=== PATIENT | male | born 1970 | race Caucasian/White ===

== ENCOUNTER 2020-06-22 10:19 | Inpatient (IN) | payer OTHER, SELFPAY ==
--- NOTE | ~2020-06-22 | US_ITS ---
EXAMINATION: US venous doppler LE RT EXAM DATE: 06/22/2020 11:50 INDICATION: Right leg pain, swelling, redness. TECHNIQUE: Multiple grayscale, color flow and Doppler images of the right lower extremity deep venous system were obtained and reviewed. Comparison is made to prior examination from 06/29/2018. FINDINGS: The right common femoral, femoral and profunda veins demonstrate normal color flow, respira tory variation, augmentation and compressibility. Compressibility, color flow confirmed within the r ight popliteal, posterior tibial, peroneal, and greater saphenous veins. IMPRESSION: 1. No right lower extremity deep venous thrombosis. Reviewed, dictated and finalized at location B.
--- NOTE | ~2020-06-22 | XR_ITS ---
EXAMINATION: XR knee RT min 4V DATE: 06/22/2020 10:59 INDICATION: Right knee pain and swelling TECHNIQUE: Four views of the right knee were obtained. COMPARISON: None. FINDINGS: There are changes of medial compartment arthroplasty. No fracture is identified. There is a small joint effusion. Moderate infrapatellar soft tissue swelling is identified. 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 IMPRESSION: 1. Infrapatellar soft tissue swelling and small joint effusion without acute osseous abnormality. Reviewed, dictated and finalized at location A. IMPRESSION: 1. Infrapatellar soft tissue swelling and small joint effusion without acute os seous abnormality.
[2020-06-22 10:22] VITALS: BP 149/83; PULSE 70; RESP 16; TEMP 36.7; O2SAT 99
[2020-06-22 11:01] LABS: Basophils Percent Auto 0.7 % (0.2-1.2); Eosinophils Absolute Auto 0.2 K/mm3 (0-0.3); Eosinophils Percent Auto 3.6 % (0-4.4); Hematocrit 38.9 % (42.0-52.0); Hemoglobin 13.7 g/dL (14.0-18.0); Immature Granulocyte Absolute 0.02 K/mm3 (0.00-0.031); Immature Granulocyte Percent A 0.4 % (0-0.5); Lymphocytes Absolute Auto 1.05 K/mm3 (0.9-3.2); Lymphocytes Percent Auto 19.1 % (18.3-44.2); Mean Corpuscular HGB Conc 35.2 g/dl (32-36); Mean Corpuscular Hemoglobin 33.1 pg (26-34); Monocytes Absolute Auto 0.5 K/mm3 (0.1-0.6); Monocytes Percent Auto 9.1 % (2.6-8.5); Neutrophils Absolute Auto 3.7 K/mm3 (1.3-6.7); Neutrophils Percent Auto 67.1 % (45.5-73.1); Platelet Count Result 238 k/mm3 (150-375); Red Blood Count 4.14 M/mm3 (4.6-6.20); Red Cell Distribution Width 12.4 % (11.5-14.5); White Blood Count 5.5 K/mm3 (4.5-10.0)
[2020-06-22 11:16] LABS: Lactic Acid Reflex 1.1 mmol/L (0.7-2.1)
[2020-06-22 11:22] LABS: Anion Gap 9 mmol/L (8-16); Blood Urea Nitrogen 13 mg/dL (9-20); CRP 6.1 mg/dL (<1.0); Calcium 9.3 mg/dL (8.4-10.2); Carbon Dioxide 23 mmol/L (22-30); Chloride 106 mmol/L (98-107); Estimated CRCL calculation 90 ml/min; Estimated Glomerular Filt Rate > 60; Glucose 114 mg/dL (75-110); Potassium 4.2 mmol/L (3.4-5.0); Sodium 138 mmol/L (137-145); Uric Acid 5.2 mg/dL (3.5-8.5)
--- NOTE | 2020-06-22 11:32 | ED.EXTPRO ---
HPI - Extremity Problem General Chief complaint: Extremity Problem,Nontraumatic Stated complaint: red, swollen rt knee Time Seen by Provider: 06/22/20 10:29 Source: patient Mode of arrival: ambulatory Limitations: no limitations History of Present Illness HPI Narrative: This is a 49 year old male that presents to the ER for swollen right knee x 4 days. Also reports redness. Reports he was seen at an outside facility on Friday and started on clindamycin with little relief. He had a knee replacement by Dr. Multani on this knee 2 years ago. Denies fever or pain. Related Data Home Medications Medication Instructions Recorded Confirmed amlodipine 06/22/20 atorvastatin 06/22/20 clindamycin HCl 06/22/20 06/22/20 Allergies Allergy/AdvReac Type Severity Reaction Status Date / Time amoxicillin Allergy Intermediate Other Verified 06/22/20 10:32 Review of Systems Review of Systems: Narrative: CONSTITUTIONAL: Denies fever SKIN: Reports erythema MUSCULOSKELETAL: Denies joint pain, or myalgia. NEUROLOGIC: Denies numbness All systems reviewed & are unremarkable except as noted in HPI and below PMFSH Past Medical History Medical History (Updated 06/22/20 @ 12:40 by Brenda Graves PA-C) History of hyperlipidemia History of hypertension Social History Social History Gender identity (if verbalized by the patient): Male Exam Narrative: Exam Narrative: GENERAL: Well-appearing, well-nourished, and in no acute distress. HEAD: Normocephalic, atraumatic. EYES: EOMI. CHEST: Clear to auscultation. No respiratory distress. No wheezes rales or rhonchi HEART: Regular rate and rhythm. No murmur heard. Normal peripheral pulses. EXTREMITIES: Normal range of motion. Right knee with mild-moderate edema of the infrapatellar bursa with overlying redness that extends down into the lower leg. Normal DP pulses, normal sensation SKIN: Warm, dry, no rash. NEURO: No focal deficits. Alert and oriented x3. PSYCH: Normal mood and affect Course Consultations Consultation #1: Spoke with Dr. Multani about patient work-up. Would like him started on Ancef and vanc and to stay in the hospital for further observation and treatment. Would like a consult put in for Dr. Perez. Date: 06/22/20 Time: 12:40 Vital Signs Vital signs: Vital Signs Temperature 98.0 F 06/22/20 10:22 Pulse Rate 70 06/22/20 10:22 Respiratory Rate 16 06/22/20 10:22 Blood Pressure 149/83 H 06/22/20 10:22 Pulse Oximetry 99 06/22/20 10:22 Temperature 98.0 F 06/22/20 10:22 Pulse Rate 70 06/22/20 10:22 Respiratory Rate 16 06/22/20 10:22 Blood Pressure 149/83 H 06/22/20 10:22 Pulse Oximetry 99 06/22/20 10:22 MDM - Extremity (Nontraumatic) MDM Narrative Medical decision making narrative: Patient presents to the emergency department for redness and swelling of the right knee. Had this knee replaced [address] Multani. Was seen at an outside hospital 4 days ago and started on clindamycin without relief. Patient is afebrile and nontoxic-appearing. He has normal range of motion in the knee and little pain. I do not suspect a septic joint. His infrapatellar bursa is inflamed and red. CBC is without leukocytosis. Inflammatory markers are elevated. Lactic acid is normal. Blood cultures were sent. Right knee x-ray shows infrapatellar soft tissue swelling and a small joint effusion, no osseous abnormality. Right lower extremity venous Dopplers without evidence of DVT. Spoke with Dr. Multani about patient work-up. Would like him started on Ancef and vanc and to stay in the hospital for further observation and treatment. Would like a consult put in for Dr. Perez. Patient given first dose of antibiotics in the ED and admitted in stable condition Lab Data Attestation: I reviewed the patient's lab results. Result diagrams: 06/22/20 10:54 06/22/20 10:54 Labs: Lab Results 06/22/20 06/22/20 06/22/20 Range/Units
[2020-06-22 11:33] LABS: Erythrocyte Sedimentation Rate 64 mm/hr (0-20)
[2020-06-22 13:10] VITALS: BP 139/88; PULSE 74; RESP 16; O2SAT 98
--- NOTE | 2020-06-22 13:24 | PM.IMHP ---
H&P: HPI History of Present Illness Date/Time: 06/22/20 13:24 Chief complaint: septic bursitis Narrative: Ricki Tang is a 49 year old male who for five days has had swelling and redness the anterior inferior portion of his right knee without any antecedent injury. In [facility] only he was put on clindamycin five days ago however his symptoms do not improve. He contacted my office I had him come to [facility] for further evaluation and management of this problem. He was seen in the emergency room. He has a septic prepatellar bursitis. Review of Systems Constitutional: Constitutional: Reports no additional constitutional complaints, Denies excessive sweating and Denies fatigue Eyes: Eyes: Reports no additional eye complaints ENT: Reports system reviewed and no additional complaints, except as documented Cardiovascular: Cardiovascular: Denies chest pain at rest and Denies dyspnea Respiratory: Respiratory: Reports no additional respiratory complaints and Denies dyspnea Gastrointestinal: Gastrointestinal: Reports no additional gastrointestinal complaints Musculoskeletal: Musculoskeletal: Reports as per HPI Integumentary/Breasts: Skin/Breast: Reports system reviewed and no additional complaints, except as docu Neurologic: Reports as per HPI Endocrine: Endocrine: Denies excessive sweating and Denies fatigue Hematologic/Lymphatic: Hematologic/Lymphatic: Denies easy bleeding and Denies easy bruising PMFSH Past Medical History Medical History History of hyperlipidemia History of hypertension Surgical History Surgical History (Updated 06/22/20 @ 13:26 by Glen Multani MD) Status post unicompartmental knee replacement left side 2015, right side 2017 Social History Social History Gender identity (if verbalized by the patient): Male Meds Home Medications and Allergies Home Medications Medication Instructions Recorded Confirmed Type amlodipine 06/22/20 History atorvastatin 06/22/20 History clindamycin HCl 06/22/20 06/22/20 History Allergies Allergy/AdvReac Type Severity Reaction Status Date / Time amoxicillin Allergy Intermediate Other Verified 06/22/20 10:32 Vital Signs Vital Signs - 24 hr 06/22/20 10:22 06/22/20 13:10 Temperature 98.0 F Pulse Rate 70 74 Respiratory Rate 16 16 Blood Pressure 149/83 H 139/88 Pulse Oximetry 99 98 Exam Const: General: alert and awake; No acute distress Nutritional Appearance: average body habitus Orientation/consciousness: patient oriented x3 Limitations: other limitations HENMT: Head: normal to inspection Ears: hearing grossly normal bilaterally Face and sinus: normal facial exam Mouth: Yes moist mucous membranes Teeth and gingiva: fair dentition Eyes: General: appearance normal, both eyes and all related structures Neck: Neck: normal visual inspection and nontender Chest: Chest palpation & inspection: deferred Resp: Effort & Inspection: normal respiratory effort and able to speak in complete sentences Cardio: Rate: regular rate Rhythm: regular rhythm Peripheral pulses: Peripheral pulses 2+ throughout ( both lower extremities) GI: Inspection: non-distended Rectal Exam: deferred Skin: General skin exam: erythema ( in the right prepatellar area ), induration ( in the right prepatellar area ), no petechiae and no purpura Trauma: no abrasions, no lacerations and no punctures noted Wounds: no wounds noted Hair: other ( reasonable growth lower extremities) Neuro: General: patient oriented x3 and moves all extremities Cognition (Neuro): normal cognition Speech: normal speech Gait exam (Neuro): Other gait observations present Motor exam (neuro): Other motor observations present ( intact motor function both lower extremities) Sensory Exam: normal sensation Extrem: General: normal to inspection and other Other:
--- NOTE | 2020-06-22 13:30 | ADMGEN ---
This patient, Ricki Tang, was admitted to Medical Room 349-01. Patient/family oriented to hospital policies and general routines including ID bracelet, bed and alarms, visiting hours, pain management, procedures, bathroom and other care routines, personal items, smoking policy, room service/diet, and visiting hours. Valuables list has been completed. Information on how to activate the Rapid Response Team has been discussed. Patient/Family are encouraged to report perceived risks to care and to ask questions if they do not understand what they are told or what they should do.
[2020-06-22 13:31] VITALS: BMI 29.7
[2020-06-22 13:56] VITALS: BP 145/94; PULSE 57; RESP 16; TEMP 36.4; O2SAT 100
--- NOTE | 2020-06-22 14:18 | P.PNINF_ITS ---
Progress Note: A&P Assessment and Plan (1) Infrapatellar bursitis of right knee: Code(s): M70.51 - Other bursitis of knee, right knee Status: Acute Assessment and Plan: r knee bursitis, with underlying TKA REC Ancef and Vanc, if no surgery nor + cultures, then Doxycycline and Cephalexin would be ideal oral f/u. PCN --> hypotension Subjective Date/time seen: 06/22/20 14:18 Objective Data Vital Signs Vital Signs: Vital Signs - 24 hr 06/22/20 10:22 06/22/20 13:10 06/22/20 13:56 Temperature 36.7 C 36.4 C L Pulse Rate 70 74 57 L Respiratory Rate 16 16 16 Blood Pressure 149/83 H 139/88 145/94 H Pulse Oximetry 99 98 100 Intake/Output Intake/Output: Intake & Output 06/19/20 06/20/20 06/21/20 06/22/20 23:59 23:59 23:59 23:59 Intake Total 50 Balance 50 Meds/Results Medications: Active Medications Generic Name Dose Route Start Last Admin Trade Name Freq PRN Reason Stop Dose Admin Aspirin 325 mg 06/23/20 09:00 Aspirin Ec PO QAM ARISTEO Cefazolin Sodium 1 gm in 50 mls @ 100 mls/hr 06/22/20 22:00 Ancef 1 Gm/D5w 50 Ml Pm IVPB Q8H ARISTEO Vancomycin HCl 1,250 mg in 250 mls @ 200 mls/hr 06/23/20 03:00 Vancomycin 1,250 Mg/D5w 250 Ml IVPB Q12H ARISTEO Vancomycin HCl 1,250 mg in 250 mls @ 200 mls/hr 06/22/20 14:00 Vancomycin 1,250 Mg/D5w 250 Ml IVPB 06/22/20 15:14 ONCE ONE Radiology Results: ITS Impressions Knee X-Ray 06/22/20 11:12 IMPRESSION: 1. Infrapatellar soft tissue swelling and small joint effusion without acute osseous abnormality. Venous Doppler Study 06/22/20 11:54 IMPRESSION: 1. No right lower extremity deep venous thrombosis. Labs Labs: Laboratory Results - last 24 hr 06/22/20 06/22/20 06/22/20 10:54 10:54 10:54 WBC 5.5 RBC 4.14 L Hgb 13.7 L Hct 38.9 L MCV 94.0 MCH 33.1 MCHC 35.2 RDW 12.4 Plt Count 238 MPV 9.0 Immature Gran % (Auto) 0.4 Neut % (Auto) 67.1 Lymph % (Auto) 19.1 [place] % (Auto) 9.1 H Eos % (Auto) 3.6 Baso % (Auto) 0.7 Lymph # (Auto) 1.05 [place] # (Auto) 0.5 Eos # (Auto) 0.2 Baso # (Auto) 0.0 Abs Immat Gran (auto) 0.02 Absolute Neuts (auto) 3.7 Absolute Nucleated RBC 0.0 Nucleated RBC % 0.0 ESR 64 H Sodium 138 Potassium 4.2 Chloride 106 Carbon Dioxide 23 Anion Gap 9 BUN 13 Creatinine 0.90 Estim Creat Clear Calc 90 Estimated GFR > 60 Glucose 114 H Lactic Acid 1.1 Uric Acid 5.2 Calcium 9.3 C-Reactive Protein 6.1 H
--- NOTE | 2020-06-22 18:14 | CONS_ITS ---
DATE OF CONSULTATION: 06/22/2020 REASON FOR CONSULTATION: Bursitis, right knee. HISTORY OF PRESENT ILLNESS: The patient is a 49-year-old male who underwent right total knee arthroplasty, unicompartmental in 2018 with the same procedure opposite left side in 2016. He was in his usual state of health until 4 days before admission when he awoke with pain and redness in the anterior aspect of the right knee below the patella. He went to emergency room in [place] where clindamycin was given. X-rays were done. He has had no aspirations of the knee at any point. He continued to have ongoing symptoms, however, and was seen in the office today and admitted. He has been started on Ancef and vancomycin and consultation requested. One day before onset of symptoms, he was underneath the house looking for water leaks, wearing long pants and without any known skin trauma. He has had no arthralgias elsewhere. No previous such episodes, and the surgery in 2018 went well from the patient's standpoint. The patient denies fever, chills, sweats, and no other recent antibiotics. HABITS: Ex-smoker. No alcohol to excess. ALLERGIES: AMOXICILLIN CAUSED BURNING IN HIS LOWER EXTREMITIES FOLLOWED BY HYPOTENSION AND THIS OCCURRED IN THE RECENT PAST. PRESENT MEDICATIONS: As above. PAST MEDICAL HISTORY: Hypertension and hyperlipidemia. SOCIAL HISTORY: He is not . 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 He knows of no skin trauma at work other than welding burn injuries, none of which have been infected. He does have a friend or pruner at home who can help with antibiotics if needed. REVIEW OF SYSTEMS: Constitutional, musculoskeletal, skin, respiratory, GI otherwise negative. FAMILY HISTORY: Not pertinent to his present illness. PHYSICAL EXAMINATION: GENERAL: Middle-aged male, appears his actual age, in no acute distress, afebrile. VITAL SIGNS: 145/94, 57, 16, 100%. SKIN: Warm and dry. No generalized rashes. EENT: Conjunctivae normal. Pupils equal, round, and reactive to light. The oropharynx, oral mucosa normal. LUNGS: Clear to auscultation and percussion. CARDIAC: Regular rate and rhythm. No murmurs or gallops. ABDOMEN: Nondistended, nontender. EXTREMITIES: No clubbing, cyanosis, or edema. Dorsalis pedis, radial pulses 2+ and equal. MUSCULOSKELETAL: Mild erythema and edema over the anterior aspect of the right patella tendon. He has excellent range of motion of the knee. There is no joint effusion. Surgical scars are very well healed. LABORATORY DATA: Blood cultures had just been drawn. His white count 5.5, hemoglobin 13.7, platelets are 238. His glucose 114, CRP 6.1, otherwise chemistry panel entirely normal. RADIOLOGY: Knee x-ray, soft tissue swelling and small joint effusion. ASSESSMENT: 1. Bursitis of the right knee, not responsive to clindamycin, without sepsis. Underlying unicompartmental joint replacement that is 2 years old. Cutaneous jojo are suspected, rather than hematogenous spread from a distant source. 2. Past tobacco. 3. Past knee surgery, opposite side also. RECOMMENDATIONS: 1. Ancef and vancomycin appropriate day 1. 2. If blood cultures no growth and he improves clinically, doxycycline and cephalexin would be optimal oral antibiotics for followup. Thank you very much for asking me to see him. AMY EDWARDS M.D. WAITER WAITER D Precious MT: Lorenzo
[2020-06-22 20:35] VITALS: BP 148/68; PULSE 57; RESP 17; TEMP 36.2; O2SAT 98
[2020-06-23 05:08] VITALS: BP 116/67; PULSE 78; RESP 12; TEMP 36.1; O2SAT 97
[2020-06-23] MEDS: ASPIRIN 325 MG ENTERIC TABLET PO (11:10)
--- NOTE | 2020-06-23 11:33 | PM.PNORT ---
Progress Note: A&P Assessment and Plan (1) Infrapatellar bursitis of right knee: Code(s): M70.51 - Other bursitis of knee, right knee Status: Acute (2) Status post unicompartmental knee replacement: Code(s): Z96.659 - Presence of unspecified artificial knee joint Status: Chronic Assessment and Plan: 49-year-old male with septic right prepatellar bursitis. This is current a resolving on the IV antibiotics. First they have blood cultures are negative. For doctors Pamela note if these remain negative then he will be discharged home this weekend on oral antibiotics. I appreciate his input. Subjective Subjective Date/Time Seen: 06/23/20 11:33 Principal diagnosis: right knee septic prepatellar bursitis Interval history: 49-year-old male who was admitted for treatment of septic right prepatellar bursitis. Dr. Garcias has been consulted and is seen him as well. Patient himself reports no issues. Very little discomfort in his right knee prepatellar area. No other complaints. Review of Systems Constitutional: Constitutional: Denies chills and Denies fever(s) Eyes: Eyes: Reports no additional eye complaints ENT: Reports system reviewed and no additional complaints, except as documented Cardiovascular: Cardiovascular: Denies chest pain and Denies dyspnea on exertion Respiratory: Respiratory: Reports no additional respiratory complaints and Denies dyspnea on exertion Gastrointestinal: Gastrointestinal: Denies abdominal pain and Denies bloating Exam Const: General: cooperative, no acute distress and alert Nutritional Appearance: other Orientation/consciousness: patient oriented x3 Limitations: no limitations HENMT: Head: normal to inspection Ears: hearing grossly normal bilaterally Face and sinus: face symmetric Mouth: Yes moist mucous membranes Teeth and gingiva: fair dentition Eyes: Alignment and Position: alignment normal and position normal Sclera: sclerae normal Neck: Neck: normal visual inspection and nontender Chest: Chest palpation & inspection: normal inspection of the chest Resp: Effort & Inspection: normal respiratory effort and able to speak in complete sentences GI: Inspection: other ( Nontender, nondistended) Skin: General skin exam: normal color Rashes: no rashes Neuro: General: patient oriented x3 Cognition (Neuro): normal cognition Speech: normal speech Motor exam (neuro): 5/5 motor strength present throughout Sensory Exam: normal sensation Extrem: General: normal to inspection and other Other: Exam of the right knee shows no irritability with active or passive motion. He has got a little bit swelling still over the patellar tendon. Erythema has diminished considerably and now is mainly just over the patellar tendon measuring about 3 cm across. Exam otherwise unremarkable. Calves negative. Psych: Appearance: grossly normal Mental Status: mental status grossly normal Objective Data Vital Signs Vital Signs: Vital Signs - 24 hr 06/22/20 13:10 06/22/20 13:56 06/22/20 20:35 Temperature 97.5 F L 97.2 F L Pulse Rate 74 57 L 57 L Respiratory Rate 16 16 17 Blood Pressure 139/88 145/94 H 148/68 H Pulse Oximetry 98 100 98 06/23/20 05:08 Temperature 97 F L Pulse Rate 78 Respiratory Rate 12 Blood Pressure 116/67 Pulse Oximetry 97 Intake/Output Intake/Output: Intake & Output 06/20/20 06/21/20 06/22/20 06/23/20 23:59 23:59 23:59 23:59 Intake Total 1690 / 1690 990 / 990 Output Total 1540 / 1540 1100 / 1100 Balance 150 / 150 -110 / -110 Meds/Results Medications: Active Medications Generic Name Dose Route Start Last Admin Trade Name Freq PRN Reason Stop Dose Admin Aspirin 325 mg 06/23/20 09:00 06/23/20 11:10 Aspirin Ec PO 325 mg QAM ARISTEO Administration Cefazolin Sodium 1 gm in 50 mls @ 100 mls/hr 06/22/20 22:00 06/23/20 05:45 Ancef 1 Gm/D5w 50 Ml Pm IVPB Infused Q8H ARISTEO Infusion Vancomycin HCl 1,250
[2020-06-23 14:00] VITALS: BP 139/80; PULSE 53; RESP 14; TEMP 36.7; O2SAT 99
[2020-06-23 21:26] VITALS: BP 140/80; PULSE 80; RESP 16; TEMP 37.1; O2SAT 98
[2020-06-24 03:00] LABS: Vancomycin Trough 10.8 ug/mL (10.0-20.0)
[2020-06-24 06:00] VITALS: BP 126/72; PULSE 60; RESP 16; TEMP 36; O2SAT 97
[2020-06-24 08:00] VITALS: PULSE 54; RESP 18; O2SAT 99
[2020-06-24] MEDS: ASPIRIN 325 MG ENTERIC TABLET PO (10:11)
[2020-06-24 14:00] VITALS: BP 144/76; PULSE 54; RESP 18; TEMP 36.7; O2SAT 99
--- NOTE | 2020-06-24 14:40 | PM.PNORT ---
Progress Note: A&P Assessment and Plan (1) Status post unicompartmental knee replacement: Code(s): Z96.659 - Presence of unspecified artificial knee joint Status: Chronic (2) Infrapatellar bursitis of right knee: Code(s): M70.51 - Other bursitis of knee, right knee Status: Acute Assessment and Plan: 49-year-old male hospital day two for IV antibiotics for septic right prepatellar bursitis. He has improved dramatically. Waiting three day blood cultures so that we can get him home on the appropriate antibiotics. Hopefully he is able to go home tomorrow. Subjective Subjective Date/Time Seen: 06/24/20 14:40 Principal diagnosis: right knee prepatellar bursitis Interval history: hospital day two for 49-year-old male with right knee prepatellar bursitis . Currently getting Ancef and vancomycin IV. He reports no pain in his right knee. Review of Systems Constitutional: Constitutional: Denies chills and Denies fever(s) Eyes: Eyes: Reports no additional eye complaints ENT: Reports system reviewed and no additional complaints, except as documented Cardiovascular: Cardiovascular: Denies chest pain and Denies dyspnea on exertion Respiratory: Respiratory: Reports no additional respiratory complaints and Denies dyspnea on exertion Gastrointestinal: Gastrointestinal: Denies abdominal pain and Denies bloating Exam Const: General: cooperative, no acute distress and alert Nutritional Appearance: other Orientation/consciousness: patient oriented x3 Limitations: no limitations HENMT: Head: normal to inspection Ears: hearing grossly normal bilaterally Face and sinus: face symmetric Mouth: Yes moist mucous membranes Teeth and gingiva: fair dentition Eyes: Alignment and Position: alignment normal and position normal Sclera: sclerae normal Neck: Neck: normal visual inspection and nontender Chest: Chest palpation & inspection: normal inspection of the chest Resp: Effort & Inspection: normal respiratory effort and able to speak in complete sentences Extrem: General: normal to inspection and other Other: Exam of Right knee shows full range of motion with excellent strength. The erythema but the anterior portion of the right knee has resolved. A little bit of fullness in the right knee prepatellar bursitis over the tendon but no pain. Neurovascular status right lower extremity unremarkable. Psych: Appearance: grossly normal Mental Status: mental status grossly normal Objective Data Vital Signs Vital Signs: Vital Signs - 24 hr 06/23/20 21:26 06/24/20 06:00 Temperature 98.8 F 96.8 F L Pulse Rate 80 60 Respiratory Rate 16 16 Blood Pressure 140/80 126/72 Pulse Oximetry 98 97 Intake/Output Intake/Output: Intake & Output 06/21/20 06/22/20 06/23/20 06/24/20 23:59 23:59 23:59 23:59 Intake Total 1690 / 1690 3314 / 3314 1290 / 1290 Output Total 1540 / 1540 4775 / 4775 Balance 150 / 150 -1461 / -1461 1290 / 1290 Meds/Results Medications: Active Medications Generic Name Dose Route Start Last Admin Trade Name Freq PRN Reason Stop Dose Admin Aspirin 325 mg 06/23/20 09:00 06/24/20 10:11 Aspirin Ec PO 325 mg QAM ARISTEO Administration Cefazolin Sodium 1 gm in 50 mls @ 100 mls/hr 06/22/20 22:00 06/24/20 06:45 Ancef 1 Gm/D5w 50 Ml Pm IVPB Infused Q8H ARISTEO Infusion Vancomycin HCl 1,250 mg in 250 mls @ 200 mls/hr 06/23/20 03:00 06/24/20 04:49 Vancomycin 1,250 Mg/D5w 250 Ml IVPB Infused Q12H ARISTEO Infusion Radiology Results: ITS Impressions Knee X-Ray 06/22/20 11:12 IMPRESSION: 1. Infrapatellar soft tissue swelling and small joint effusion without acute osseous abnormality. Venous Doppler Study 06/22/20 11:54 IMPRESSION: 1. No right lower extremity deep venous thrombosis. Labs Labs: Laboratory Results - last 24 hr 06/24/20 02:09 Vancomycin Trough 10.8 Imaging Attestation: I personally reviewed and interpret
[2020-06-24 22:00] VITALS: BP 135/77; PULSE 60; RESP 16; TEMP 36.7; O2SAT 100
[2020-06-25 06:00] VITALS: BP 116/73; PULSE 60; RESP 16; TEMP 36.3; O2SAT 100
[2020-06-25 08:00] VITALS: PULSE 60; RESP 16; O2SAT 100
[2020-06-25] MEDS: ASPIRIN 325 MG ENTERIC TABLET PO (08:35)
--- NOTE | 2020-06-25 09:40 | PM.PNORT ---
Progress Note: A&P Assessment and Plan (1) Infrapatellar bursitis of right knee: Code(s): M70.51 - Other bursitis of knee, right knee Status: Acute Assessment and Plan: This 5-year-old male with resolving right prepatellar septic bursitis. His initial blood cultures were negative and from a clinical standpoint he has been essentially symptom-free history was the IV antibiotics were started. I spoke with Dr. kashif glass to get the outpatient oral antibiotic information. He will be getting Keflex 500 mg q.i.d. x1 week and doxycycline 100 mg b.i.d. x1 week. I asked him to call my office in a week to let me know how he is doing. It is fine for him to return to work. Is also fine for him to be able to drive himself home. Time Spent With Patient Time with patient: 15 - 25 minutes Subjective Subjective Date/Time Seen: 06/25/20 09:40 Principal diagnosis: Right knee septic prepatellar bursitis Interval history: 49-year-old male hospital day three for IV antibiotics for a septic right prepatellar bursitis. He remains symptom free. Review of Systems Constitutional: Constitutional: Denies chills and Denies fever(s) Eyes: Eyes: Reports no additional eye complaints ENT: Reports system reviewed and no additional complaints, except as documented Cardiovascular: Cardiovascular: Denies chest pain and Denies dyspnea on exertion Respiratory: Respiratory: Reports no additional respiratory complaints and Denies dyspnea on exertion Gastrointestinal: Gastrointestinal: Denies abdominal pain and Denies bloating Exam Const: General: cooperative, no acute distress and alert Nutritional Appearance: other Orientation/consciousness: patient oriented x3 Limitations: no limitations HENMT: Head: normal to inspection Ears: hearing grossly normal bilaterally Face and sinus: face symmetric Mouth: Yes moist mucous membranes Teeth and gingiva: fair dentition Eyes: Alignment and Position: alignment normal and position normal Sclera: sclerae normal Neck: Neck: normal visual inspection and nontender Chest: Chest palpation & inspection: normal inspection of the chest Resp: Effort & Inspection: normal respiratory effort and able to speak in complete sentences GI: Inspection: other ( Nondistended) Skin: General skin exam: normal color Rashes: no rashes Neuro: General: patient oriented x3 Cognition (Neuro): normal cognition Speech: normal speech Gait exam (Neuro): Other gait observations present Motor exam (neuro): 5/5 motor strength present throughout Sensory Exam: normal sensation Extrem: General: normal to inspection and other Other: Exam of the right knee shows full range of motion. There is still some thickening of the prepatellar bursal area however the erythema has completely resolved in the anterior portion of his right knee. There is no irritability on exam. Neurovascular status right lower extremity intact. Left knee exam unremarkable. Psych: Appearance: grossly normal Mental Status: mental status grossly normal Objective Data Vital Signs Vital Signs: Vital Signs - 24 hr 06/24/20 14:00 06/24/20 22:00 06/25/20 06:00 Temperature 98.0 F 98.1 F 97.3 F L Pulse Rate 54 L 60 60 Respiratory Rate 18 16 16 Blood Pressure 144/76 H 135/77 116/73 Pulse Oximetry 99 100 100 Intake/Output Intake/Output: Intake & Output 06/22/20 06/23/20 06/24/20 06/25/20 23:59 23:59 23:59 23:59 Intake Total 1690 / 1690 3534 / 3534 2680 / 2680 1380 / 1380 Output Total 1540 / 1540 4775 / 4775 2875 / 2875 900 / 900 Balance 150 / 150 -1241 / -1241 -195 / -195 480 / 480 Meds/Results Medications: Active Medications Generic Name Dose Route Start Last Admin Trade Name Freq PRN Reason Stop Dose Admin Aspirin 325 mg 06/23/20 09:00 06/25/20 08:35 Aspirin Ec PO 325 mg QAM ARISTEO Administration Cefazolin Sodium 1 gm in 50 mls @ 100 mls/hr 06/22/20 22:00 06/25/20 07:00 Ancef 1 Gm/D5w 50 Ml Pm IVPB Infused Q8
--- NOTE | 2020-06-25 09:51 | PM.DS ---
DS: Admitting Diagnosis Admitting Diagnosis Admitting Diagnosis: septic bursitis Right prepatellar region DS: Discharge Diagnosis Discharge Diagnosis (1) Septic prepatellar bursitis of right knee: Code(s): M71.161 - Other infective bursitis, right knee Status: Acute Assessment and Plan: 49-year-old male with resolving right knee septic prepatellar bursitis. He is going to go home on oral Keflex and doxycycline for one week. He will follow up with me by telephone in a week or sooner if the need arises. DS: Summary Time Spent with Patient Time attestation: Total time spent providing and/or coordinating discharge services: DS: Data Data Completed and Pending Labs on day of discharge: Preliminary micro results at discharge 06/22/20 10:54 Blood Culture - Preliminary Blood 06/22/20 10:54 Blood Culture - Preliminary Blood Discharge Plan Discharge Attending physician on discharge: Glen Multani Consulting providers: Wilberto Perez ; Brenda Graves Discharging Clinician: Glen Multani Anticipated Discharge Date/Time: 06/25/20 09:44 Patient Disposition: Home, Self-Care Activity: march shower Diet: as tolerated Wound Care Instructions: other - see discharge instructions Discharge Instructions: Please call [facility] at one week after discharge to let me know how you are doing. Also, call the office with any orthopedic/surgical related questions prior to follow-up. Be sure to take all of the antibiotics as prescribed. Okay to eat a Citizen [place] yogurt daily well on the oral antibiotics to minimize bowel issues. Okay to return to work Friday. Patient Instructions: Antibiotic Form, Cefazolin (By injection), Vancomycin (By injection), Knee Bursitis (GEN), Pain Management (DC) Stand Alone Forms: General Discharge Information Follow-up/Referrals: Glen Multani MD [Physician] - ( call office in one week to let me know progress) Discharge Medications: New cephalexin [Keflex] 500 mg capsule 500 mg PO Q6H 7 Days Qty: 28 RF: 0 doxycycline hyclate 100 mg capsule 100 mg PO BID Qty: 14 RF: 0 Continued amlodipine 10 mg tablet 10 mg DAILY RF: 0 levothyroxine 150 mcg Tablet 150 mcg PO DAILY RF: 0 Discontinued clindamycin HCl 300 mg capsule 300 mg PO TID RF: 0 No Action atorvastatin 20 mg tablet 20 mg DAILY RF: 0 Date of admission: 06/22/20 12:26 Primary Care Provider: PHYSICIAN NOT ON STAFF,NONSTAFF Admitting Provider: Glen Multani Attending physician on admission: Glen Multani Condition: Stable Quality VTE Prophylaxis VTE prophylaxis: mechanical ordered and pharmacologic ordered
== END 2020-06-25 11:30 | disposition home or self-care (01) | DRG 558 ==
LOC: ANHED 12:40 → ANH3MED 12:54
PROVIDERS: Physician Assistant; Admitting Provider Orthopaedic Surgery; Emergency Provider Emergency Medicine; Visit Provider Orthopaedic Surgery
DX: M71.161 Other infective bursitis, right knee (principal); E78.5 Hyperlipidemia, unspecified; I10 Essential (primary) hypertension; Z96.653 Presence of artificial knee joint, bilateral; Z87.891 Personal history of nicotine dependence
CPT/HCPCS: 36415; 73564; 80048; 80202; 83605; 84550; 85025; 85652; 86140; 87040; 93971; 99285; A9270; J0690; J3370

== ENCOUNTER → 2020-12-23 09:06 | Outpatient (CLI) | payer OTHER, SELFPAY ==
--- NOTE | ~2020-12-23 | MR_ITS ---
EXAMINATION: MR shoulder LT wo con DATE: 12/23/2020 10:14 INDICATION: Anterior left shoulder pain radiating down the left arm TECHNIQUE: Magnetic resonance imaging (MRI) of the left shoulder was performed without intravenous co ntrast. Sequences included axial PD-weighted FS FSE, coronal oblique PD-weighted FS FSE, coronal obli que T2-weighted FS FSE, sagittal PD-weighted FS FSE, and sagittal T1-weighted SE. COMPARISON: Left shoulder radiographs dated 11/04/2020 FINDINGS: Coracoacromial arch: The acromion undersurface is curved in morphology (type II). Unfused meso acromial os acromiale. The coracoacromial ligament is normal. Mild acromioclavicular osteoarthritis. Rotator cuff: Mild subscapularis, supraspinatus tendinopathy and moderate infraspinatus tendinopathy. Supraspinatus tendon tear with full-thickness component beginning approximately 2-3 cm from the superior facet omega tplate and with possible 1 cm medial retraction of the medial tear margin which is positioned at the level of the acromioclavicular joint line. The distal portion of the tendon which remains attached to the superior facet appears attenuated with a poorly defined likely frayed lateral margin to the tear . There is an additional small articular sided tear at the middle facet footplate of the distal infra spinatus tendon. The tear also extends anteriorly with full-thickness tear involving the cephalad two thirds of the lesser tuberosity footplate. The teres minor tendon is normal. There is prominent fatt y muscular atrophy of the cephalad two thirds of the subscapularis muscle suggesting this portion of the rotator cuff tear is chronic. No evident fatty atrophy of the supraspinatus muscle belly suggesti ng this portion of the tear is more recent. Biceps tendon, glenoid labrum and glenohumeral cartilage: Moderate tendinopathy and longitudinal split tearing of the long head biceps tendon which is subluxed across the medial rim of the intertubercular groove and over the lesser tuberosity subscapularis ten don tear defect. Degenerative tearing of the superior to posterior superior glenoid labrum extending from the 12:30 position anteriorly to the 10:00 position posteriorly. There is a multilobulated para labral cyst measuring 1.8 x 1.4 x 0.9 cm extending along the posterior superior neck of the glenoid a nd across the lateral aspect of the spinal glenoid notch. Glenohumeral cartilage is normal. Fluid: Physiologic amount of fluid in the glenohumeral joint and biceps tendon sheath. No loose osteochondra l bodies. Small amount of fluid in the subacromial/subdeltoid bursa consistent with mild bursitis. Bones: Normal marrow signal with no reactive edema, fracture or pathologic marrow replacing process. IMPRESSION: 1. Full-thickness subscapularis tendon tear involving the cephalad two thirds of the lesser tuberosit y footplate which is likely chronic given the severe associated fatty muscular atrophy. 2. Complete full thickness supraspinatus tendon tear occurring more medially approximately 2 cm from the superior facet footplate which is likely more acute without associated fatty atrophy. 3. Separate small mild bursal sided tear of the distal infraspinatus tendon. 4. Degenerative tearing of the superior to posterior superior glenoid labrum with multilobulated para labral cyst extending into the spinoglenoid notch. 5. Normal variant unfused meso acromial os acromiale and mild acromioclavicular osteoarthritis. 6. Mild to moderate tendinopathy and longitudinal split tearing of the long head biceps tendon. Reviewed, dictated and finalized at location A. NEERING JOB TITLES IMPRESSION: 1. Full-thickness subscapularis tendon tear involving the cephalad two thirds o f the lesser tuberosity footplate which is likely c
== END ==
PROVIDERS: Visit Provider Orthopaedic Surgery
DX: M25.512 Pain in left shoulder (principal); G89.29 Other chronic pain
CPT/HCPCS: 73221

== ENCOUNTER 2021-01-12 08:11 | Outpatient (CLI) | payer OTHER, SELFPAY ==
--- NOTE | 2021-01-12 08:00 | ECG_ITS ---
Measurements Intervals [place] Rate: 52 P: 26 WY: 203 QRS: -19 QRSD: 94 T: 0 QT: 412 QTc: 385 Interpretive Statements SINUS BRADYCARDIA BORDERLINE AV CONDUCTION DELAY BORDERLINE ST-T WAVE ABNORMALITY- INFERIOR LEADS BASELINE ARTIFACT- I, II, III, AVR, AVL, AVF BORDERLINE ECG Electronically Signed On 01-12-2021 8:39:23 TRACK REPAIR SUPERVISOR by Sam Sanchez D.O.
== END 2021-01-12 08:12 | disposition home or self-care (01) ==
LOC: ANHSURGERY 08:14
PROVIDERS: PCP Physician Assistant; Visit Provider Orthopaedic Surgery
DX: Z01.810 Encounter for preprocedural cardiovascular examination (principal); R00.1 Bradycardia, unspecified; Z86.79 Personal history of other diseases of the circulatory system
CPT/HCPCS: 93005

== ENCOUNTER 2021-01-22 02:06 | Day surgery (SDC) | payer OTHER, SELFPAY ==
--- NOTE | 2021-01-19 14:51 | WPDANESEPPF ---
Anes - Initial Pre Proc Eval Procedure: Operation Date: 01/22/21 07:30 Proposed Procedures p Left Rotator Cuff Repair Acromioplasty With Distal Clavicle Excision - Glen Multani MD Date/Time: 01/19/21 14:51 Surgeon: Glen Multani MD Pre Op Diagnosis: Left Rotator Cuff Tear, AC arthritis Patient Data Age: 50 Gender: M Height: 1.7 m Weight: 87.09 kg Allergies Allergy/AdvReac Type Severity Reaction Status Date / Time amoxicillin Allergy Intermediate Other Verified 01/22/21 06:21 Penicillins Allergy Mild Other Verified 01/22/21 06:22 Home Medications Medication Instructions Recorded Confirmed Type amlodipine 10 mg PO DAILY 06/22/20 01/10/21 History atorvastatin 20 mg PO DAILY 06/22/20 01/10/21 History levothyroxine 150 mcg PO DAILY 06/22/20 01/10/21 History Aleve 1 cap PO DAILY 01/10/21 01/10/21 History One A Day Vitamin 1 cap PO DAILY 01/10/21 01/10/21 History Patient hx anesthesia problems: none Family hx anesthesia problems: none PMFSH Past Medical History Medical History (Updated 01/22/21 @ 06:34 by Dustni Robb DO) BMI 30.0-30.9,adult History of hyperlipidemia History of hypertension Hypothyroidism Septic prepatellar bursitis of right knee Surgical History Surgical History Status post unicompartmental knee replacement left side 2015, right side 2017 Family History Family History Father Cancer Sibling Acute myocardial infarction Grandparent Heart disease Acute myocardial infarction Hypertension Social History Social History Smoking packs per day: 1 Smoking cigarettes per day: 20.0 Years smoked: 20 Smoking pack-years: 20.00 Smoking status: Former smoker Tobacco type: cigarettes Alcohol intake: never Substance use: never Last use: 2009 Living arrangements: with family Gender identity (if verbalized by the patient): Male Spiritual care concerns: No Anes - Eval Final PreProcedure Day of Procedure 01/19/21 14:51 Patient weight: obese Heart: regular rate and rhythm Lungs: clear to auscultation and normal air movement Airway: Mallampati scale class II Neurological: alert and oriented Last oral intake: >/= 8 hours ASA classification: III Emergent: no Anesthetic plan: proceed Anesthesia type and monitoring: general ETT and standard monitoring Informed Consent: The patient's anesthetic plan and its attendant risks and benefits were discussed with the patient/family/POA. Questions were solicited and answers provided to the satisfaction of the patient/family/POA.
--- NOTE | 2021-01-19 14:52 | WPDANESPNB ---
Anes - Peripheral Nerve Block Date/Time: 01/19/21 14:52 I have discussed with the patient/family/POA the placement of a peripheral nerve block for post-operative pain management, including associated risks, benefits, complications, and side effects. Alternative methods of post-operative analgesia were detailed. Questions were solicited and answers provided to the satisfaction of the patient/family/POA. Time-Out: A pre-procedural Time-Out was completed immediately before starting the procedure and confirmed: Patient Identification, Site, Procedure, Patient Position and the Availability of Requisite Equipment. Clinical Indications: Acute post-operative pain management requested by the operative surgeon. Nerve Block Insertion Note Anes-nerve block: interscalene left Patient position: supine Skin prep: chlorhexidine Needle: 22 gauge, stimulating, insulated echogenic needle. Needle length: 50 mm Technique: ultrasound Injectate: bupivacaine 0.5% with epi 5 mcg/ml (30cc- no epi) Observations: tolerated well Complications: none Procedure start time:: 719 Procedure end time:: 722
[2021-01-22] VITALS (8 sets, daily range): BP systolic 111–135; BP diastolic 66–79; PULSE 52–82; RESP 15–19; TEMP 36.1; O2SAT 93–100
[2021-01-22] MEDS: ACETAMINOPHEN 500 MG TABLET 1000 MG PO (06:50)
[2021-01-22] MEDS: KETOROLAC 15 MG/ML VIAL (*BKC) IV PUSH (06:50)
[2021-01-22] MEDS: LACTATED RINGERS 1,000 ML 30 ML IV CONT ×2 (06:50→09:28)
--- NOTE | 2021-01-22 07:13 | WPDHPUPDATE1 ---
History and Physical Update Update Date/Time: 01/22/21 07:13 History and Physical has been reviewed, including an updated exam of the patient. There are NO changes in the patient's condition. Risks, benefits, and alternatives have been discussed and questions answered. Patient agrees to proceed with procedure.
[2021-01-22] MEDS: CLINDAMYCIN 900 MG/D5W 50 ML 900 MG/50 ML PIGGYBACK 50 MG IVPB (07:25)
[2021-01-22] MEDS: ceFAZolin SODIUM 1 GM VIAL IV PUSH (07:41)
[2021-01-22] MEDS: BUPIVACAINE/EPINEPHRINE 0.25% 50 ML VIAL INFILTRATE (08:26)
--- NOTE | 2021-01-22 09:32 | PM.PROC ---
Procedure Note - Detailed Date of procedure: 01/22/21 Pre-op diagnosis: Left Rotator Cuff Tear, AC arthritis Post-op diagnosis: same Procedure performed: Left shoulder acromioplasty, distal clavicle excision and repair the rotator cuff. Description of procedure: Patient was identified and proper site identified. In the preop holding area the anesthesia team performed a left upper extremity block. He was then taken to the operating room and transferred to the or table taking care to pad the torso and extremities. After general anesthetic induction and intubation, he was put in a semi beach chair position in the usual manner for a left shoulder procedure. His head was secured taking care to neither rotate nor extend the head and neck. The left upper extremity was prepped and draped free in usual sterile fashion. The subcutaneous tissue in the area of the incision was injected with 10 cc of 0.25% Marcaine and epinephrine solution. An oblique anterior incision was made extending from the AC joint distally in line with the fibers of the deltoid. Subcutaneous tissue was sharply dissected down to the deltoid fascia. The deltoid was dissected off the anterior portion of the acromion in the distal end of the clavicle. A 2 cm split was made at the junction between the anterior and middle thirds of the deltoid. Using the microsagittal saw the last 8 mm of clavicle removed preserving the superior posterior and inferior capsule of the AC joint. The saw was also used to perform the acromioplasty of only the anterior most aspect of the prominent acromion and then the undersurface of the acromion was rasped smooth. The small prominent lateral spur seen on the x-ray was able to be palpated but with overlying tissue was not appreciated to be prominent. So as to not disrupt the os acromiale, this was left alone. Bursa was sharply debrided off of the rotator cuff allowing for inspection. The patient had a very unusual chronic appearing tear. It looked as if the supraspinatus tendon had ruptured off of the anterior portion of the greater tuberosity and had retracted posteriorly and superiorly. There was also absence of the proximal half of the subscapularis along for the biceps tendon to subluxate forward into the joint. Biceps tenotomy was performed and then the proximal and tagged for later soft tissue tenodesis. The remaining tendon edges were able to be freshened up and with some gentle releases brought forward so that a [id number] repair could be made taking care not to over tighten the rotator interval. This was carried out with 2. Vicryl and 2. Ethibond suture. The tendon construct was then repaired to the greater tuberosity which had been prepared and this was carried out with multiple 2. Ethibond sutures passed through a bony bridge. This gave a corado repair which was stable as the shoulder was taken through range of motion. The wound was irrigated with sterile NaCl solution. The deltoid was repaired back to the acromion with 2. Ethibond suture passed through bone and the remainder of the deltoid repair carried out with 2. Vicryl. Subcutaneous tissue was reapproximated with 2. Strata fix and then tissue adhesive used for the skin. Sterile dressing was applied. There were no known intraoperative complications, and perioperative antibiotics were administered. Anesthesia: JEANNIE Surgeon: Glen Multani MD Broadcast Field Supervisor: Tammie Santizo Estimated blood loss (mL): 50 Drains: No Packing: No Pathology: none sent Complications: No immediate complications Condition: stable Disposition: PACU
== END 2021-01-22 11:03 | disposition home or self-care (01) ==
PROVIDERS: Visit Provider Orthopaedic Surgery
PROC: (CPT 23420; principal; 2021-01-22 07:30)
DX: M75.112 Incomplete rotator cuff tear or rupture of left shoulder, not specified as traumatic (principal); M19.012 Primary osteoarthritis, left shoulder; G89.18 Other acute postprocedural pain; I10 Essential (primary) hypertension; E78.5 Hyperlipidemia, unspecified; E03.9 Hypothyroidism, unspecified; Z87.891 Personal history of nicotine dependence; E66.9 Obesity, unspecified; Z68.29 Body mass index [BMI] 29.0-29.9, adult
CPT/HCPCS: 64415; 23412; 23120; 93005; A4565; A9270; J0330; J0690; J1100; J1885; J2250; J2405; J2704; J3010; J7120

== ENCOUNTER 2021-07-08 19:07 | Emergency (ER) | payer OTHER, SELFPAY ==
[2021-07-08 19:09] VITALS: BP 166/94; PULSE 79; RESP 18; TEMP 36.4; O2SAT 99
--- NOTE | 2021-07-08 19:33 | ED.WOUNDLAC ---
HPI - Wound/Laceration General Chief Complaint: Wound/Laceration Stated Complaint: laceration to left leg. Time Seen by Provider: 07/08/21 19:17 Source: patient Mode of arrival: ambulatory Limitations: no limitations History of Present Illness HPI narrative: This is a 50 year old male that presents to the ER for laceration to the left calf sustained just prior to arrival. Reports he was building a bike with his grandson. Reports he fell backwards off the back sustaining a laceration. Denies any other injuries. He is up to date on tetanus. Denies decreased ROM or numbness. Related Data Home Medications Medication Instructions Recorded Confirmed amlodipine 10 mg PO DAILY 06/22/20 05/22/21 atorvastatin 20 mg PO DAILY 06/22/20 05/22/21 levothyroxine 150 mcg PO DAILY 06/22/20 05/22/21 Aleve 1 cap PO DAILY 01/10/21 05/22/21 One A Day Vitamin 1 cap PO DAILY 01/10/21 05/22/21 Allergies Allergy/AdvReac Type Severity Reaction Status Date / Time amoxicillin Allergy Intermediate Other Verified 07/08/21 19:12 Penicillins Allergy Mild Other Verified 07/08/21 19:12 Review of Systems Review of Systems: CONSTITUTIONAL: Denies fever SKIN: Reports laceration MUSCULOSKELETAL: Denies joint pain, or myalgia. NEUROLOGIC: Denies numbness All systems reviewed & are unremarkable except as noted in HPI and below PMFSH Past Medical History Medical History (Updated 07/08/21 @ 20:33 by Brenda Graves PA-C) BMI 30.0-30.9,adult History of hyperlipidemia History of hypertension Hypothyroidism Septic prepatellar bursitis of right knee Surgical History Surgical History (Updated 05/22/21 @ 08:56 by Glen Multani MD) Left rotator cuff tear Repair January 2021 Status post unicompartmental knee replacement left side 2015, right side 2018 Family History Family History Father Cancer Sibling Acute myocardial infarction Grandparent Heart disease Acute myocardial infarction Hypertension Social History Social History Smoking packs per day: 1 Smoking cigarettes per day: 20.0 Years smoked: 20 Smoking pack-years: 20.00 Smoking status: Former smoker Tobacco type: cigarettes Alcohol intake: never Substance use: never Last use: 2009 Gender identity (if verbalized by the patient): Male Spiritual care concerns: No Exam Narrative: GENERAL: Well-appearing, well-nourished, and in no acute distress. HEAD: Normocephalic, atraumatic. EYES: EOMI. EXTREMITIES: Normal range of motion. No edema or obvious deformity. Normal DP pulses. Normal sensation. 10cm linear laceration into subcutaneous tissue over the left calf SKIN: Warm, dry, no rash. NEURO: No focal deficits. Alert and oriented x3. PSYCH: Normal mood and affect Course Vital Signs Vital signs: Vital Signs Temperature 97.6 F 07/08/21 19:09 Pulse Rate 79 07/08/21 19:09 Respiratory Rate 18 07/08/21 19:09 Blood Pressure 166/94 H 07/08/21 19:09 Pulse Oximetry 99 07/08/21 19:09 Temperature 97.6 F 07/08/21 19:09 Pulse Rate 79 07/08/21 19:09 Respiratory Rate 18 07/08/21 19:09 Blood Pressure 166/94 H 07/08/21 19:09 Pulse Oximetry 99 07/08/21 19:09 Procedures Laceration Laceration 1: Date: 07/08/21 Time: 20:32 Site: lower extremity Side (If applicable): left Size (cm): 10 Description: linear Depth: simple, single layer Local Anesthetic: lidocaine 1% and with epi Amount of anesthesia used (mL): 10 Pre-repair: irrigated ====== Skin Level ====== Skin layer closed with: nylon Size (cm): 4-0 Number of sutures: 13 Technique: simple, interrupted ====== Subcutaneous Layer ====== ====== Muscle Layer ====== ====== Tendon Layer ====== MDM - Wound/Laceration MDM Narrative Medical decision making narrati
[2021-07-08] MEDS: TETANUS,DIPHTHERIA,AC PERTUSSIS ADULT (0.5 ML) BOOSTRIX IM (20:38)
[2021-07-08 20:45] VITALS: BP 142/78; PULSE 88; RESP 20; O2SAT 99
== END 2021-07-08 20:46 | disposition home or self-care (01) ==
PROVIDERS: Emergency Provider Emergency Medicine
DX: S81.812A Laceration without foreign body, left lower leg, initial encounter (principal); Z23 Encounter for immunization; E78.5 Hyperlipidemia, unspecified; I10 Essential (primary) hypertension; E03.9 Hypothyroidism, unspecified; Z96.653 Presence of artificial knee joint, bilateral; Z87.891 Personal history of nicotine dependence; W17.89XA Other fall from one level to another, initial encounter
CPT/HCPCS: 12004; 90471; 90715; 99283

== ENCOUNTER 2022-06-25 08:37 | Outpatient (CLI) | payer OTHER, SELFPAY ==
[2022-06-25 09:40] LABS: Eosinophils Absolute Auto 0.2 K/mm3 (0-0.3); Hematocrit 41.9 % (42.0-52.0); Hemoglobin 14.1 g/dL (14.0-18.0); Immature Granulocyte Absolute 0.01 K/mm3 (0.00-0.031); Immature Granulocyte Percent A 0.3 % (0-0.5); Lymphocytes Absolute Auto 1.17 K/mm3 (0.9-3.2); Lymphocytes Percent Auto 30.5 % (18.3-44.2); Mean Corpuscular HGB Conc 33.7 g/dl (32-36); Mean Corpuscular Hemoglobin 33.4 pg (26-34); Mean Corpuscular Volume 99.3 fl (80-100); Mean Platelet Volume 9.1 fl (7.4-10.4); Monocytes Absolute Auto 0.4 K/mm3 (0.1-0.6); Monocytes Percent Auto 9.4 % (2.6-8.5); Neutrophils Percent Auto 52.8 % (45.5-73.1); Platelet Count Result 257 k/mm3 (150-375); Red Blood Count 4.22 M/mm3 (4.6-6.20); White Blood Count 3.8 K/mm3 (4.5-10.0)
[2022-06-25 10:30] LABS: CRP < 0.5 mg/dL (<1.0); Uric Acid 6.8 mg/dL (3.5-8.5)
[2022-06-25 11:40] LABS: Rheumatoid Factor < 8.6 IU/ML (<12)
[2022-06-25 17:55] LABS: Erythrocyte Sedimentation Rate 17 mm/hr (0-20)
[2022-07-01 06:45] LABS: Anti Nuclear Antibody Titer 1:40 (Negative)
== END 2022-06-25 08:38 | disposition home or self-care (01) ==
PROVIDERS: Visit Provider Orthopaedic Surgery
DX: M25.562 Pain in left knee (principal)
CPT/HCPCS: 36415; 84550; 85025; 85652; 86038; 86039; 86140; 86430

== ENCOUNTER 2023-03-16 09:46 | Outpatient (CLI) | payer OTHER, SELFPAY ==
--- NOTE | ~2023-03-16 | MR_ITS ---
EXAMINATION: MR lower leg RT wo/w con DATE: 03/16/2023 10:44 INDICATION: Soft tissue mass. TECHNIQUE: Magnetic resonance imaging (MRI) of the right lower leg was performed without and with 17 mL MultiHance intravenous contrast. Sequences included axial T1 FSE, axial T1 FS, axial FSE STIR, axi al T1 FS postcontrast, coronal T1 FS postcontrast, and sagittal T1 FS postcontrast. COMPARISON: None. FINDINGS: Medial compartment hemiarthroplasty. Small knee joint effusion. Subchondral cyst formation in the inf erior patella. Synovial thickening and enhancement within the knee joint. Benign and homogenous marro w signal. Intact cortical signal in the visualized bones. 11 x 10 mm fluid collection in the anterior soft tissues of the rosas, deep to the soft tissue marker, with surrounding induration and enhancemen t of the subcutaneous fat. Minimal periosteal enhancement adjacent to the anterior tibia and along th e anterior muscular fascia. No deep fascial involvement. No low signal areas to suggest the presence of subcutaneous gas. IMPRESSION: 11 mm subcutaneous phlegmon or early abscess in the anterior soft tissues, with surrounding subcutane ous fat induration and enhancement would be consistent with cellulitis in the appropriate clinical co ntext. Reviewed, dictated and finalized at location K. IMPRESSION: 11 mm subcutaneous phlegmon or early abscess in the anterior soft tissues, with surrounding subcutaneous fat induration and enhancement would be consistent wi th cellulitis in the appropriate clinical context.
== END 2023-03-16 09:47 | disposition home or self-care (01) ==
PROVIDERS: Visit Provider Orthopaedic Surgery
DX: M79.89 Other specified soft tissue disorders (principal)
CPT/HCPCS: 73720; A9577

== ENCOUNTER 2023-03-17 13:26 | Outpatient (CLI) | payer OTHER, SELFPAY ==
--- NOTE | 2023-03-17 13:43 | ECG_ITS ---
Measurements Intervals [place] Rate: 58 P: 34 OR: 205 QRS: -14 QRSD: 89 T: 14 QT: 368 QTc: 362 Interpretive Statements SINUS BRADYCARDIA DELAYED PRECORDIAL R/S TRANSITION BASELINE ARTIFACT- I, II, AVR, AVL, AVF BORDERLINE ECG COMPARED TO ECG 01/12/2021 08:55:29 NO SIGNIFICANT CHANGES Electronically Signed On 03-17-2023 14:01:38 CDT by Sam Sanchez D.O.
== END 2023-03-17 13:27 | disposition home or self-care (01) ==
PROVIDERS: Visit Provider Orthopaedic Surgery
DX: Z86.39 Personal history of other endocrine, nutritional and metabolic disease (principal); Z86.79 Personal history of other diseases of the circulatory system; Z01.818 Encounter for other preprocedural examination; R94.31 Abnormal electrocardiogram [ECG] [EKG]
CPT/HCPCS: 93005

== ENCOUNTER 2023-03-20 00:58 | Day surgery (SDC) | payer OTHER, SELFPAY ==
[2023-03-17 11:16] VITALS: BMI 28.6
--- NOTE | 2023-03-17 11:20 | PC.NURSE ---
Report to the Outpatient Waiting Room, entrance under the green pavilion located off [facility], at time 10:00 on date 03/20/23. Planned Procedure Time: 12:00. Time changes happen often and if your time is changed the preop area will call you the afternoon before. - You and your visitor will be asked to self-screen and do not enter if you have any COVID symptoms. - A mask is optional within the hospital at this time. Patients may have clear liquids (water, carbonated beverages, clear teas, apple juice) until 3 hours prior to surgery with a maximum of 20 ounces. - No food from midnight until time of surgery Take the following medications with a SIP of water the morning of surgery: AMLODIPINE, LEVOTHYROXINE DO NOT STOP ANY OF YOUR OTHER PRESCRIPTION MEDICATIONS PRIOR TO SURGERY?EXCEPT THE FOLLOWING Medications to discontinue per physician: N/A Date to take last dose: N/A Please no make-up, nail prydeinig, hairspray, perfume, deodorant, or body powder the day of surgery. No jewelry (including any body piercings) or valuables the day of surgery, leave them at home. Please take a shower or bath the night before, or the morning of, surgery with an antibacterial soap. Wear comfortable, loose fitting clothing. - Jewelry must be removed prior to entering the operating room. Rings and piercings that are not removed may be cut off. - The hospital will not accept responsibility for valuables. - Please leave all valuables, including medications, at home the day of surgery. If you are going home after surgery, a licensed batch mixing truck driver must drive you home. - NO public transportation without another adult if you receive anesthesia. - We recommend that an adult stay with you for 24 hours following discharge. - We also recommend that you do not drive, make important decision, drink alcoholic beverages, or take any drugs that were not prescribed by your health care provider for at least 24 hours after your discharge time. Follow any additional instructions given to you from your surgeon. If you or anyone in your household have experienced Covid symptoms in the past week, please notify your surgeon or the nurse liaison at the phone number below for possible testing. Telephone instructions given to PT - CHRISTOPHER MILLER and asked if any additional questions and then verbalized understanding. Patient advised to call surgeon office or pre surgery nurse liaison [phone] if any additional questions.
[2023-03-20] VITALS (9 sets, daily range): BP systolic 95–147; BP diastolic 58–84; PULSE 44–60; RESP 11–16; TEMP 36.3–36.8; O2SAT 97–100
--- NOTE | 2023-03-20 10:36 | P.PNAN_ITS ---
Anes - Initial Pre Proc Eval Procedure: Operation Date: 03/20/23 12:00 Proposed Procedures p Washout and Closure Of Right Tibial Lesion - Glen Multani MD Date/Time: 03/20/23 10:36 Surgeon: Glen Multani MD Pre Op Diagnosis: right abscess of tibia Patient Data Age: 52 Gender: M Height: 1.7 m Weight: 83 kg Allergies Allergy/AdvReac Type Severity Reaction Status Date / Time amoxicillin Allergy Intermediate Other Verified 03/20/23 10:27 Penicillins Allergy Mild Other Verified 03/20/23 10:27 Home Medications Medication Instructions Recorded Confirmed Type amlodipine 10 mg tablet 10 mg PO DAILY 06/22/20 03/20/23 History levothyroxine 150 mcg tablet 150 mcg PO DAILY 06/22/20 03/20/23 History celecoxib 200 mg capsule (Celebrex) 200 mg PO DAILY #30 caps 06/25/22 03/20/23 Rx atorvastatin 20 mg tablet 40 mg PO DAILY 02/26/23 03/20/23 History losartan 100 mg tablet 100 mg PO DAILY 02/26/23 03/20/23 History levothyroxine 25 mcg tablet 12.5 mcg PO DAILY 03/17/23 03/20/23 History Patient hx anesthesia problems: none Family hx anesthesia problems: none Results Review: All pre-operative results and documents have been reviewed as part of the pre- operative evaluation. 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 Septic prepatellar bursitis of right knee Surgical History Surgical History Left rotator cuff tear Repair January 2021 Status post unicompartmental knee replacement left side 01/06/14, right side 04/30/18 Family History Family History Father Cancer Sibling Acute myocardial infarction Grandparent Heart disease Acute myocardial infarction Hypertension Social History Social History Smoking packs per day: 1 Smoking cigarettes per day: 20.0 Years smoked: 20 Smoking pack-years: 20.00 Smoking status: Former smoker Tobacco type: cigarettes Smoking end date: 11/03/09 Alcohol intake: current Alcohol use details: VERY RARE Substance use: never Substance use type: does not use Last use: 2009 Living arrangements: with family Gender identity (if verbalized by the patient): Male Spiritual care concerns: No Anes - Eval Final PreProcedure Day of Procedure 03/20/23 10:36 Patient weight: obese Heart: regular rate and rhythm Lungs: clear to auscultation and normal air movement Airway: Mallampati scale class II Neurological: alert and oriented Last oral intake: >/= 8 hours ASA classification: III Emergent: no Anesthetic plan: proceed Anesthesia type and monitoring: general LMA and standard monitoring Results Review: All pre-operative results and documents have been reviewed as part of the pre- operative evaluation. Informed Consent: The patient's anesthetic plan and its attendant risks and benefits were discussed with the patient/family/POA. Questions were solicited and answers provided to the satisfaction of the patient/family/POA.
[2023-03-20] MEDS: ACETAMINOPHEN 500 MG TABLET 1000 MG PO (10:42)
[2023-03-20] MEDS: LACTATED RINGERS 1,000 ML 30 ML IV CONT (10:48)
[2023-03-20] MEDS: KETOROLAC 15 MG/ML VIAL (*BKC) IV PUSH (11:01)
--- NOTE | 2023-03-20 11:36 | WPDHPUPDATE1 ---
History and Physical Update Update Date/Time: 03/20/23 11:36 History and Physical has been reviewed, including an updated exam of the patient. There are NO changes in the patient's condition. Risks, benefits, and alternatives have been discussed and questions answered. Patient agrees to proceed with procedure.
[2023-03-20] MEDS: ceFAZolin 2 GM/D5W 50 ML 2 GM/50 ML BAG IVPB (11:56)
[2023-03-20] MEDS: BUPivacaine HCL 0.5% 10 ML AMP 30 ML INFILTRATE (12:26)
--- NOTE | 2023-03-20 12:55 | W.PM.PROC2 ---
Procedure Note - Detailed Date of Procedure 03/20/23 Pre-op Diagnosis right abscess of right lower leg pretibial area Post-op Diagnosis Same Procedure Performed debridement right lower leg pretibial area Surgeon Glen Multani MD Hoisting Engineer [employer] Subhash Bojorquez Anesthesia General Description of Procedure The patient was identified and proper site identified. He was taken to the operating room and transferred to the OR table placing him supine taking care to pad his torso extremities. After general anesthetic induction and intubation a nonsterile tourniquet was placed high on the right thigh. Right lower extremity was prepped and draped in usual sterile fashion extremity was exsanguinated and the tourniquet was inflated to 300 millimeters of mercury remaining up for approximately 11 minutes. Longitudinal incision was made just medial to the pretibial area adjacent to the tibial tubercle. There was the firm area just below the skin which was primarily scar tissue. This was sharply excised and then the material sent for histopathologic examination. The tourniquet was released. The wound was irrigated with sterile saline solution. There was very little active bleeding. The subcutaneous tissue was injected with several cc of 0.5% plain Marcaine. The skin edges reapproximated with 3-0 V lock and 3-0 nylon sutures. Sterile dressing was applied. Patient tolerated procedure well. He was awakened, extubated taken to recovery in stable condition. There were no known intraoperative complications. Estimated blood loss was negligible. He received perioperative antibiotics. Estimated Blood Loss 4 Tourniquet Time 11 Drains No Packing No Pathology Yes Complications No immediate complications Condition Stable Disposition PACU [facility] Billing Surgery - Charge Forward: Surgery Billing ([id number])
== END 2023-03-20 14:25 | disposition home or self-care (01) ==
PROVIDERS: Visit Provider Orthopaedic Surgery
PROC: (CPT 27603; principal; 2023-03-20 12:00)
DX: L02.415 Cutaneous abscess of right lower limb (principal); Z87.891 Personal history of nicotine dependence; E03.9 Hypothyroidism, unspecified; E78.5 Hyperlipidemia, unspecified; I10 Essential (primary) hypertension
CPT/HCPCS: 27603; 88304; 93005; A9270; J0690; J1100; J1885; J2250; J2405; J2704; J3010; J7120

== ENCOUNTER 2023-04-14 11:17 | Outpatient (CLI) | payer OTHER, SELFPAY ==
--- NOTE | ~2023-04-14 | US_ITS ---
EXAMINATION:US venous doppler LE RT INDICATION:Right leg pain TECHNIQUE: Multiple grayscale, color flow and Doppler images of the right lower extremity deep venous systems were obtained and reviewed. COMPARISON:06/22/2020 FINDINGS: The common femoral, superficial femoral and popliteal veins demonstrate normal respiratory variation, augmentation and compressibility. Color flow is also seen within the posterior tibial, pe roneal, greater saphenous and profunda veins. IMPRESSION: 1: No lower extremity deep venous thrombosis. Reviewed, dictated and finalized at location []
== END 2023-04-14 11:18 | disposition home or self-care (01) ==
PROVIDERS: Visit Provider Orthopaedic Surgery
DX: M79.604 Pain in right leg (principal); M79.89 Other specified soft tissue disorders
CPT/HCPCS: 93971

== ENCOUNTER 2023-04-19 08:59 | Inpatient (IN) | payer OTHER, SELFPAY ==
--- NOTE | ~2023-04-19 | XR_ITS ---
EXAM: XR tibia fibula RT 2V DATE: 04/21/2023 20:00 HISTORY: POST OP . COMPARISON: None available CT 04/19/2023, x-MR 03/16/2023. FINDINGS: Normal mineralization. No fracture or dislocation. No lytic or blastic lesion. Medial comp artment hemiarthroplasty hardware, without complication. Moderate degenerative change in the patellof emoral and lateral compartment of the knee. Antibiotic beats project over the anterior proximal tibia . Mild degenerative change in the ankle joint. No erosion or periosteal change. Soft tissue swelling over the proximal tibia. No concerning radiopaque foreign body. IMPRESSION: Antibiotic bead placement over the anterior/proximal tibia. Reviewed, dictated and finalized at location K.
--- NOTE | ~2023-04-19 | US_ITS ---
US arterial ankle brachial ind INDICATION: Recurrent cellulitis TECHNIQUE: Segmental pressures and plethysmographic and Doppler waveforms of the brachial and lower e xtremity arteries were obtained. COMPARISON: None. FINDINGS: Right and left brachial artery pressures of 106 mm Hg and 1:15 mm Hg, respectively, are concordant (n ormal difference <= 30 mmHg). The right ankle-brachial index (JANINA) is 1.23 (normal >= 0.9-1.0). The right great toe-brachial index (TBI) is 0.15 (normal >= 0.60). The left JANINA is 1.23. The left TBI is 0.37. IMPRESSION: 1. Significantly decreased toe brachial indices bilaterally, consistent with severe peripheral arteri al disease below the ankles. 2: Normal bilateral ankle-brachial indices. Reviewed, dictated and finalized at location A. IMPRESSION: 1. Significantly decreased toe brachial indices bilaterally, consistent with se goldie peripheral arterial disease below the ankles. 2: Normal bilateral ankle-brachial indices.
--- NOTE | ~2023-04-19 | CT_ITS ---
CT LE RT w con DATE: 04/19/2023 09:57 INDICATION: Right orsas abscess TECHNIQUE: Axial images through the right lower leg, with sagittal and coronal reconstructions. The e xamination was performed with 100 CC Omnipaque 350 intravenous contrast material. Exam dose: 920.73 mGy-cm total exam DLP. COMPARISON: 03/16/2023 MR right lower leg FINDINGS: There is an abnormal fluid collection in the proximal anterior soft tissues of the lower le g, measuring up to 3.9 cm transverse dimension, 12 mm AP dimension and up to 5.4 cm vertical dimensio n. There is an irregular enhancing to approximately 2.5 mm thick capsule. There is subcutaneous fat stranding and fluid of the lower leg, ankle and foot which may be due to ed hiro and/or cellulitis. Status post medial compartment joint replacement. Osteoarthritic changes are noted at the patellofemoral and lateral compartments. No fracture or dislocation, periosteal reaction or bone destruction is detected. IMPRESSION: Proximal anterior lower level approximately 3.9 x 1.2 x 5.4 cm encapsulated soft tissue a bscess Edema and/or cellulitis of the lower leg, ankle and foot Status post medial compartment joint replacement Osteoarthritis of patellofemoral and lateral compartments Reviewed, dictated and finalized at Location A. Reviewed, dictated and finalized at location A. IMPRESSION: Proximal anterior lower level approximately 3.9 x 1.2 x 5.4 cm enca psulated soft tissue abscess Edema and/or cellulitis of the lower leg, ankle and foot Status post medial compartment joint replacement Osteoarthritis of patellofemoral and lateral compartments
[2023-04-19 09:01] VITALS: BP 149/78; PULSE 64; RESP 18; TEMP 36.4; O2SAT 100
--- NOTE | 2023-04-19 09:16 | ED.EXTPRO ---
HPI - Extremity Problem General Chief complaint: Extremity Problem,Nontraumatic <CAS Reilly Last Filed: 04/19/23 17:07> Stated complaint: R. leg infection <Brenda Wong PA-C - Last Filed: 04/19/23 17:07> Time Seen by Provider: 04/19/23 09:05 <CAS Reilly Last Filed: 04/19/23 17:07> History of Present Illness HPI Narrative: Patient is a 52-year-old male patient of Dr. Multani's here for evaluation of right lower extremity cellulitis. Patient states that he has been following with Dr. Multani for the past 2 months for a periosteal abscess in the RLE. This was removed surgically on March 20. Patient had been doing well postoperatively but started to develop some cellulitis distal to the incision about a week ago. He was placed on clindamycin, but states that the redness and swelling has spread proximally and he feels an area of fluctuance. He reports fevers up to 101, mild pain in the leg. He had an ultrasound on 04/14 that was negative for DVT. Patient has no past medical history and is not immunocompromised. He denies any numbness or tingling in the extremity. <CAS Reilly Last Filed: 04/19/23 17:07> Related Data Home medications: Home Medications Medication Instructions Recorded Confirmed amlodipine 10 mg tablet 10 mg PO DAILY 06/22/20 04/19/23 levothyroxine 150 mcg tablet 150 mcg PO DAILY 06/22/20 04/19/23 atorvastatin 20 mg tablet 40 mg PO DAILY 02/26/23 04/19/23 losartan 100 mg tablet 100 mg PO DAILY 02/26/23 04/19/23 levothyroxine 25 mcg tablet 12.5 mcg PO DAILY 03/17/23 04/19/23 aspirin 81 mg tablet 81 mg PO DAILY 04/19/23 04/19/23 <CAS Reilly Last Filed: 04/19/23 17:07> Allergies/Adverse reactions: Allergies Allergy/AdvReac Type Severity Reaction Status Date / Time amoxicillin Allergy Intermediate Other Verified 04/15/23 08:10 Penicillins Allergy Mild Other Verified 04/15/23 08:10 <CAS Reilly Last Filed: 04/19/23 17:07> Review of Systems Review of Systems: Gen: Denies fevers or chills Eyes: Denies eye pain or visual change ENT: Denies congestion Respiratory: Denies shortness of breath or cough CV: Denies chest pain or palpitations GI: Denies abdominal pain nausea, emesis or diarrhea denies burning, urgency, frequency or hematuria Musculoskeletal: Reports right leg pain Neuro: Denies numbness, tingling, weakness or focal weakness Skin: Reports redness and swelling in the limb Except as documented, all other systems reviewed and negative <CAS Reilly Last Filed: 04/19/23 17:07> [facility] Past Medical History Medical History: Medical History BMI 30.0-30.9,adult History of hyperlipidemia History of hypertension Hypothyroidism 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 Septic prepatellar bursitis of right knee <CAS Reilly Last Filed: 04/19/23 17:07> Surgical History Surgical History: Surgical History Abscess of right leg Encapsulated subcutaneous/ periosteal abscess along with medial metaphyseal flare - excised March 20, 2023 Recurrence April 2023 Left rotator cuff tear Repair January 2021 Status post unicompartmental knee replacement left side 01/06/14, right side 04/30/18 <CAS Reilly Last Filed: 04/19/23 17:07> Family History Family History: Family History Father Cancer Sibling Acute myocardial infarction Grandparent Heart disease Acute myocardial infarction Hypertension <CAS Reilly Last Filed: 04/19/23 17:07> Social History Social History: Social History Smoking packs per day: 1 Smoking cigarettes per day: 20.0
[2023-04-19 09:39] LABS: Basophils Percent Auto 0.5 % (0.2-1.2); Eosinophils Absolute Auto 0.1 K/mm3 (0-0.3); Eosinophils Percent Auto 1.7 % (0-4.4); Hematocrit 39.5 % (42.0-52.0); Hemoglobin 13.5 g/dL (14.0-18.0); Immature Granulocyte Absolute 0.02 K/mm3 (0.00-0.031); Immature Granulocyte Percent A 0.3 % (0-0.5); Lymphocytes Absolute Auto 1.03 K/mm3 (0.9-3.2); Lymphocytes Percent Auto 17.2 % (18.3-44.2); Mean Corpuscular HGB Conc 34.2 g/dl (32-36); Mean Corpuscular Hemoglobin 32.4 pg (26-34); Mean Corpuscular Volume 94.7 fl (80-100); Mean Platelet Volume 8.3 fl (7.4-10.4); Monocytes Absolute Auto 0.6 K/mm3 (0.1-0.6); Monocytes Percent Auto 9.7 % (2.6-8.5); Neutrophils Absolute Auto 4.2 K/mm3 (1.3-6.7); Neutrophils Percent Auto 70.6 % (45.5-73.1); Platelet Count Result 256 k/mm3 (150-375); Red Blood Count 4.17 M/mm3 (4.6-6.20); Red Cell Distribution Width 12.4 % (11.5-14.5)
[2023-04-19 09:47] LABS: Estimated CRCL calculation 70 ml/min; Estimated Glomerular Filt Rate > 60
[2023-04-19 09:56] LABS: Alanine Aminotransferase 64 U/L (6-50); Albumin Level 4.2 g/dL (3.5-5.1); Alkaline Phosphatase 85 U/L (38-126); Anion Gap 7 mmol/L (8-16); Aspartate Amino Transferase 40 U/L (17-59); Bilirubin,Total 0.7 mg/dL (0.2-1.3); Blood Urea Nitrogen 12 mg/dL (9-20); Calcium 8.8 mg/dL (8.4-10.2); Carbon Dioxide 26 mmol/L (22-30); Chloride 105 mmol/L (98-107); Estimated CRCL calculation 77 ml/min; Estimated Glomerular Filt Rate > 60; Glucose 107 mg/dL (65-110); Potassium 4.1 mmol/L (3.4-5.0); Sodium 138 mmol/L (137-145)
--- NOTE | 2023-04-19 10:40 | PM.IMCN ---
Assessment and Plan Assessment and plan (1) Abscess of right leg: Code(s): L02.415 - Cutaneous abscess of right lower limb Status: Acute Assessment and Plan: MRSA screen ordered, would recommend vancomycin and Rocephin (doxycyline is bacteriostatic as opposed to bactericidal and still has resistance to MRSA), blood cultures, will need I and D with wound cultures Check A1c, ABIs (2) Hypothyroidism: Code(s): E03.9 - Hypothyroidism, unspecified Status: Acute Assessment and Plan: Check TSH, continue levothyroxine (3) Hypertension: Code(s): I10 - Essential (primary) hypertension Status: Acute Assessment and Plan: Continue home losartan and Norvasc, blood pressures reviewed 04/19, somewhat elevated May need to increase blood pressure medication prior to discharge, monitor (4) Hyperlipidemia: Code(s): E78.5 - Hyperlipidemia, unspecified Status: Acute Assessment and Plan: Check fasting lipid panel, continue statin Plan DVT prophylaxis with SCDs GI prophylaxis not indicated Code status full code [facility] Data of Consult Consult date: 04/19/23 Primary Care Provider: PHYSICIAN NOT ON STAFF Consult Narrative Narrative: Ricki Tang is a 52 year old male with past medical history significant for hypertension, hypothyroidism and hyperlipidemia as well as history of recurrent abscess presenting for the same. He has been followed by Dr. Multani outpatient the last 2 months for periosteal abscess that was removed surgically March 20. Pathology did confirm that it was an abscess as opposed to other etiology. Shortly after removal, patient noted redness, swelling and fluctuance concerning for abscess. Dr. Multani placed him on clindamycin outpatient. Patient continued to have symptoms including fevers and pain as well as redness and swelling to the leg. No chest pain or shortness of breath. No nausea, vomiting or diarrhea. In the ER, he did not have any leukocytosis. Venous Doppler some April 14 for negative for DVT. CT of the leg did show a suspected abscess as well as cellulitis. Dr. Multani recommended admission with IV abx. 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 Septic prepatellar bursitis of right knee Surgical History Surgical History Abscess of right leg Encapsulated subcutaneous/ periosteal abscess along with medial metaphyseal flare - excised March 20, 2023 Recurrence April 2023 Left rotator cuff tear Repair January 2021 Status post unicompartmental knee replacement left side 01/06/14, right side 04/30/18 Family History Family History Father Cancer Sibling Acute myocardial infarction Grandparent Heart disease Acute myocardial infarction Hypertension Social History Social History Smoking packs per day: 1 Smoking cigarettes per day: 20.0 Years smoked: 20 Smoking pack-years: 20.00 Smoking status: Former smoker Alcohol intake: current Alcohol use details: VERY RARE Substance use: never Substance use type: does not use Last use: 2009 Lack of Transportation: No Lack of Food: Never True Current Housing: I Have Housing Concerned About Future Housing: No Difficulty Paying Gas/Electric Bills: No Difficulty Paying for Meds: No Currently Unemployed: No Education: High School Diploma/GED Difficulty w/ Childcare or Family Care: No Living arrangements: with family Gender identity (if verba
--- NOTE | 2023-04-19 11:18 | PC.NURSE ---
RN at bedside to give antibiotics and obtain labs, pt in [place] currently. S/o updated on plan and admission.
[2023-04-19] MEDS: ceFAZolin 1 GM/NS 50 ML 1 GM/50 ML BAG IVPB (11:51)
[2023-04-19 12:22] LABS: Hemoglobin A1C 5.3 % (<5.7); Lactic Acid Reflex 0.7 mmol/L (0.7-2.0)
--- NOTE | 2023-04-19 12:22 | ADMGEN ---
This patient, Ricki Tang, was admitted to 3 [facility] Surg Room 328-01 at 1220. Patient/family oriented to hospital policies and general routines including ID bracelet, bed and alarms, visiting hours, pain management, procedures, bathroom and other care routines, personal items, smoking policy, room service/diet, and visiting hours. Information on how to activate the Rapid Response Team has been discussed. Patient/Family are encouraged to report perceived risks to care and to ask questions if they do not understand what they are told or what they should do.
[2023-04-19 12:25] LABS: CRP 5.7 mg/dL (<1.0)
[2023-04-19 12:29] VITALS: BMI 29.3
[2023-04-19 12:55] VITALS: BP 136/81; PULSE 62; RESP 18; TEMP 36.7; O2SAT 99
[2023-04-19 13:33] LABS: Procalcitonin 0.1 ng/mL
--- NOTE | 2023-04-19 15:35 | PM.IMHP ---
H&P: HPI History of Present Illness Date/Time: 04/19/23 15:35 Chief Complaint: Swelling and redness right rosas Narrative: 52-year-old male who month ago had debridement a soft tissue abscess right rosas. This was completely encapsulated. He has had some type of recurrence with cellulitis. He was admitted to manage this issue. Review of Systems Constitutional: Constitutional: Denies difficulty sleeping Eyes: Eyes: Denies change in vision and Denies loss of vision ENT: Reports Normal hearing present and Denies throat swelling Cardiovascular: Cardiovascular: Denies chest pain and Denies lightheadedness Respiratory: Respiratory: Reports no additional respiratory complaints and Denies cough Gastrointestinal: Gastrointestinal: Reports no additional gastrointestinal complaints and Denies abdominal pain Musculoskeletal: Musculoskeletal: Reports as per HPI Integumentary/Breasts: Skin/Breast: Denies non-healing lesions Neurologic: Reports system reviewed and no additional complaints, except as documented, Reports Normal hearing present, Denies behavioral changes and Denies loss of vision Psychiatric: Psychiatric: Denies behavioral changes Endocrine: Endocrine: Denies change in body appearance Hematologic/Lymphatic: Hematologic/Lymphatic: Denies easy bleeding Allergic/Immunologic: Allergic/Immunologic: Denies urticaria and Denies throat swelling PMFSH Past Medical History Medical History BMI 30.0-30.9,adult History of hyperlipidemia History of hypertension Hypothyroidism 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 Septic prepatellar bursitis of right knee Surgical History Surgical History (Updated 04/19/23 @ 15:38 by Glen Multani MD) Abscess of right leg Encapsulated subcutaneous/ periosteal abscess along with medial metaphyseal flare - excised March 20, 2023 Recurrence April 2023 Left rotator cuff tear Repair January 2021 Status post unicompartmental knee replacement left side 01/06/14, right side 04/30/18 Family History Family History Father Cancer Sibling Acute myocardial infarction Grandparent Heart disease Acute myocardial infarction Hypertension Social History Social History Smoking packs per day: 1 Smoking cigarettes per day: 20.0 Years smoked: 20 Smoking pack-years: 20.00 Smoking status: Former smoker Alcohol intake: current Alcohol use details: VERY RARE Substance use: never Substance use type: does not use Last use: 2009 Lack of Transportation: No Lack of Food: Never True Current Housing: I Have Housing Concerned About Future Housing: No Difficulty Paying Gas/Electric Bills: No Difficulty Paying for Meds: No Currently Unemployed: No Education: High School Diploma/GED Difficulty w/ Childcare or Family Care: No Living arrangements: with family Gender identity (if verbalized by the patient): Male Spiritual care concerns: No Meds Home Medications and Allergies Home Medications Medication Instructions Recorded Confirmed Type amlodipine 10 mg tablet 10 mg PO DAILY 06/22/20 04/19/23 History levothyroxine 150 mcg tablet 150 mcg PO DAILY 06/22/20 04/19/23 History celecoxib 200 mg capsule (Celebrex) 200 mg PO DAILY #30 caps 06/25/22 04/19/23 Rx atorvastatin 20 mg tablet 40 mg PO DAILY 02/26/23 04/19/23 History losartan 100 mg tablet 100 mg PO DAILY 02/26/23 04/19/23 History levothyroxine 25 mcg tablet 12.5 mcg PO DAILY 03/17/23 04/19/23 History aspirin 81 mg tablet 81 mg PO DAILY 04/19/23 04/19/23 History Allergies Allergy/AdvReac Type Severity Reaction Status Date / Time amoxicillin Allergy Intermediate Other Verified 04/15/23 08:10 Penicillins Allergy Mild Other Verified 04/15/23 08:10 Vital Signs Vital Signs - 24 hr 04/19/23 09:01
[2023-04-19 20:39] VITALS: BP 123/78; PULSE 63; RESP 16; TEMP 36.6; O2SAT 98
[2023-04-19 22:32] VITALS: O2SAT 98
[2023-04-20 06:00] VITALS: BP 123/77; PULSE 64; RESP 16; TEMP 36.6; O2SAT 99
[2023-04-20 06:41] LABS: Basophils Absolute Auto 0.1 K/mm3 (0.0-0.1); Basophils Percent Auto 1.1 % (0.2-1.2); Eosinophils Absolute Auto 0.2 K/mm3 (0-0.3); Eosinophils Percent Auto 4.4 % (0-4.4); Hemoglobin 12.9 g/dL (14.0-18.0); Immature Granulocyte Absolute 0.03 K/mm3 (0.00-0.031); Immature Granulocyte Percent A 0.7 % (0-0.5); Lymphocytes Absolute Auto 1.15 K/mm3 (0.9-3.2); Lymphocytes Percent Auto 26.4 % (18.3-44.2); Mean Corpuscular HGB Conc 33.9 g/dl (32-36); Mean Corpuscular Hemoglobin 32.5 pg (26-34); Mean Corpuscular Volume 95.7 fl (80-100); Mean Platelet Volume 8.5 fl (7.4-10.4); Monocytes Absolute Auto 0.4 K/mm3 (0.1-0.6); Monocytes Percent Auto 8.9 % (2.6-8.5); Neutrophils Absolute Auto 2.6 K/mm3 (1.3-6.7); Neutrophils Percent Auto 58.5 % (45.5-73.1); Platelet Count Result 277 k/mm3 (150-375); Red Blood Count 3.97 M/mm3 (4.6-6.20); Red Cell Distribution Width 12.3 % (11.5-14.5); White Blood Count 4.4 K/mm3 (4.5-10.0)
[2023-04-20 06:56] LABS: Alanine Aminotransferase 59 U/L (6-50); Albumin Level 3.9 g/dL (3.5-5.1); Alkaline Phosphatase 82 U/L (38-126); Anion Gap 2 mmol/L (8-16); Aspartate Amino Transferase 34 U/L (17-59); Bilirubin,Total 0.4 mg/dL (0.2-1.3); Blood Urea Nitrogen 13 mg/dL (9-20); Calcium 8.7 mg/dL (8.4-10.2); Carbon Dioxide 34 mmol/L (22-30); Chloride 103 mmol/L (98-107); Cholesterol 116 mg/dL (0-200); Estimated CRCL calculation 70 ml/min; Estimated Glomerular Filt Rate > 60; Glucose 116 mg/dL (65-110); HDL Direct 25 mg/dL; Potassium 4.5 mmol/L (3.4-5.0); Sodium 139 mmol/L (137-145); Triglycerides 91 mg/dL (<150)
[2023-04-20 07:07] LABS: LDL Cholesterol Direct 65 mg/dL
--- NOTE | 2023-04-20 07:21 | PM.PNORT ---
Progress Note: A&P Assessment and Plan (1) Abscess of right leg: Code(s): L02.415 - Cutaneous abscess of right lower limb Status: Acute Plan Recurrent abscess right lower extremity. Plan for surgery tomorrow. This is going to be for I and D right leg abscess and placement of antibiotic beads. Currently on vancomycin and Rocephin has been ordered. Reviewed the labs and other than being mildly anemic they are unremarkable. A1c was 5.4. Surgery again reviewed. Subjective Subjective Date/Time Seen: 04/20/23 07:21 Interval history: 52-year-old male who has got recurrent subcutaneous abscess right proximal rosas. Overnight the abscess all decompressed and has purulent drainage now coming from it. Cultures sent. redness has decreased considerably. Overall he is comfortable. Exam Const: General: cooperative Extrem: Other: Marked decrease in the amount of erythema right lower extremity. Distal portion of the original scar shows small area of rupture and there is purulent drainage coming from this now. Neurovascular status intact right lower extremity. Calves negative. Objective Data Vital Signs Vital Signs: Vital Signs - 24 hr 04/19/23 09:01 04/19/23 12:33 04/19/23 12:55 Temperature 97.6 F 98.1 F Pulse Rate 64 62 Respiratory Rate 18 18 Blood Pressure 149/78 H 136/81 Pulse Oximetry 100 99 Oxygen Delivery Room Air Room Air 04/19/23 20:39 04/19/23 20:00 04/19/23 22:32 Temperature 98 F Pulse Rate 63 Respiratory Rate 16 Blood Pressure 123/78 Pulse Oximetry 98 98 Oxygen Delivery Room Air Room Air 04/20/23 06:00 Temperature 98 F Pulse Rate 64 Respiratory Rate 16 Blood Pressure 123/77 Pulse Oximetry 99 Oxygen Delivery Intake/Output Intake/Output: Intake & Output 04/17/23 04/18/23 04/19/23 04/20/23 23:59 23:59 23:59 23:59 Intake Total 1270 / 1270 450 / 450 Balance 1270 / 1270 450 / 450 Meds/Results Medications: Active Medications Generic Name Dose Route Start Last Admin Trade Name Freq PRN Reason Stop Dose Admin Acetaminophen 650 mg 04/19/23 10:35 Acetaminophen 325 Mg Tablet PO Q4H PRN Mild Pain (1-3) or Fever Hydrocodone Bitart/Acetaminophen 1 tab 04/19/23 10:35 Hydrocodone/Acetaminophen (*Crx) 5-325 Mg Tablet PO Q4H PRN Pain Rated 7-10 Vancomycin HCl 1,500 mg in 500 mls @ 250 mls/hr 04/19/23 12:00 04/20/23 05:01 Vancomycin 1,500 Mg/D5w 500 Ml IVPB 250 mls/hr Q18H ARISTEO Administration Ceftriaxone Sodium 1 gm in 50 mls @ 100 mls/hr 04/20/23 07:20 Rocephin 1 Gm/Ns 50 Ml IVPB Q24H ARISTEO Ketorolac Tromethamine 15 mg 04/19/23 10:35 Ketorolac 30 Mg/Ml Vial (*Bkc) IV PUSH 04/24/23 10:34 Q6H PRN Pain Rated 4-6 Ondansetron HCl 4 mg 04/19/23 10:35 Ondansetron Inj 4 Mg/2 Ml Vial IV PUSH Q4H PRN Nausea Radiology Results: ITS Impressions Lower Extremity CT 04/19/23 10:14 IMPRESSION: Proximal anterior lower level approximately 3.9 x 1.2 x 5.4 cm encapsulated soft tissue abscess Edema and/or cellulitis of the lower leg, ankle and foot 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 Significantly decreased toe brachial indices bilaterally, consistent with severe peripheral arterial disease below the ankles. 2: Normal bilateral ankle-brachial indices. Labs Labs: Laboratory Results - last 24 hr 04/19/23 04/19/23 04/19/23 09:35 09:36 09:45 WBC 6.0 RBC 4.17 L Hgb 13.5 L Hct 39.5 L MCV 94.7 MCH 32.4 MCHC 34.2 RDW 12.4 Plt Count 256 MPV 8.3 Immature Gran % (Auto) 0.3 Neut % (Auto) 70.6 Lymph % (Auto) 17.2 L [place] % (Auto) 9.7 H Eos % (Auto) 1.7 Baso % (Auto) 0.5 Lymph # (Auto) 1.03 [place] # (Auto) 0.6 Eos # (Auto) 0.1 Baso # (Auto) 0.0 Abs Immat Gran (auto) 0.02
--- NOTE | 2023-04-20 07:48 | PM.IMPN ---
Progress Note: A&P Assessment and Plan (1) Hyperlipidemia: Code(s): E78.5 - Hyperlipidemia, unspecified Status: Acute (2) Hypertension: Code(s): I10 - Essential (primary) hypertension Status: Acute (3) Hypothyroidism: Code(s): E03.9 - Hypothyroidism, unspecified Status: Acute (4) Abscess of right leg: Code(s): L02.415 - Cutaneous abscess of right lower limb Status: Acute Plan RLE Abscess -Orthopedics is primary and plans to take patient to the OR on Friday afternoon for I&D with placement of antibiotic beads. Will make NPO at midnight. -Open and draining purulent fluid. Continue changing dry gauze dressing daily and PRN. -Receiving Vancomycin and Rocephin IV. Vanco trough 04/21 at 1700. -WBC 4.4 (6.0) today. Afebrile and no reports of chills or body aches. Acetaminophen prn should he develop a fever. -MRSA, wound culture, and blood cultures are pending. -ABIs normal. Toe brachial indices significantly decreased bilaterally indicating severe PAD below the ankles. -HgA1C 5.3% Hypertension -Blood pressures ranging 123-136/78-81. HR 60's. -Continue home amlodipine 10 mg PO daily and losartan 100 mg tablet PO daily Hypothyroidism -TSH WNL 2.250 -Continue levothyroxine 162.5 mcg PO daily Hyperlipidemia -Fasting labs Triglycerides 91, Total cholesterol 116, LDL 65, and HDL 25. -Receiving Atorvastatin 20 mg PO daily Subjective Date/time seen: 04/20/23 07:48 Interval history: Ricki Tang is a 52 year old male with past medical history significant for hypertension, hypothyroidism and hyperlipidemia as well as history of recurrent abscess presenting for the same.? He has been followed by Dr. Multani outpatient the last 2 months for periosteal abscess that was removed surgically March 20.? Pathology did confirm that it was an abscess as opposed to other etiology.? Shortly after removal, patient noted redness, swelling and fluctuance concerning for abscess.? Dr. Multani placed him on clindamycin outpatient.? Patient continued to have symptoms including fevers and pain as well as redness and swelling to the leg. No chest pain or shortness of breath.? No nausea, vomiting or diarrhea.? In the ER, he did not have any leukocytosis.? Venous Doppler some April 14 for negative for DVT.? CT of the leg did show a suspected abscess as well as cellulitis.? Dr. Multani recommended admission with IV abx. Interval history: 04/20: Mr Tang is found in bed watching television having just finished breakfast. When asked how he is feeling he replies great . He says that yesterday the abscess on his leg popped and gushed fluid. He denies pain besides some throbbing that occurs when he is ambulatory. He feels that the swelling has decreased as well as warmth and erythema. Otherwise he is feeling well, tolerating a diet, voiding appropriately. He denies h/a, dizziness, chest pain, SOB, and N/V/D. He says that orthopedics is taking him tomorrow afternoon to the OR for an I&D with washout. Review of Systems Review of Systems: All systems reviewed & are unremarkable except as noted in HPI and below Exam Narrative: General: No acute distress, alert and oriented per baseline HEENT: Atraumatic, normocephalic, mucous membranes moist CV: Regular rate and rhythm, S1, S2 Lungs: Clear to auscultation bilaterally, no rales or crackles noted, no wheezes, good air entry Abdomen: Soft, nontender, nondistended Extremities: area of warmth and erythema noted over anterior tibia, below the inferior patellar edge, + fluctuance. Small open area has developed with pink wound bed and purulent drainage. Gauze dressing is in place. Skin: No rashes noted, no lesions or wounds seen Psych: Euthymic, normal affect Objective Data Vital Signs Vital Signs: Vital Signs - 24 hr 04/19/23 09:01 04/19/23 12:33 04/19/23 12:55 Temperature 97.6 F 98.1 F Pulse Rate 64 62 Respiratory Rate 18 18 Blood Pressure 149/7
--- NOTE | 2023-04-20 08:26 | PM.IMPN ---
Progress Note: A&P Assessment and Plan (1) Abscess of right leg: Code(s): L02.415 - Cutaneous abscess of right lower limb Status: Acute Assessment and Plan: MRSA screen ordered, would recommend vancomycin and Rocephin (doxycyline is bacteriostatic as opposed to bactericidal and still has resistance to MRSA), blood cultures, will need I and D with wound cultures, A1c 5.3, ABIs positive for severe disease below the ankles (2) Hypothyroidism: Code(s): E03.9 - Hypothyroidism, unspecified Status: Acute Assessment and Plan: TSH wnl, continue levothyroxine (3) Hypertension: Code(s): I10 - Essential (primary) hypertension Status: Acute Assessment and Plan: Continue home losartan and Norvasc, blood pressures reviewed 04/20 May need to increase blood pressure medication prior to discharge, monitor (4) Hyperlipidemia: Code(s): E78.5 - Hyperlipidemia, unspecified Status: Acute Assessment and Plan: Check fasting lipid panel, continue statin Plan DVT prophylaxis with SCDs GI prophylaxis not indicated Code status full code Subjective Date/time seen: 04/20/23 08:26 Interval history: No overnight events noted. No chest pain or shortness of breath. No nausea, vomiting or diarrhea. No fevers or chills. Yesterday the wound broke open and began draining, still draining today. Review of Systems Review of Systems: 12 point review of systems was assessed and was negative except as noted in the HPI Exam Narrative: General: No acute distress, alert and oriented per baseline HEENT: Atraumatic, normocephalic, mucous membranes moist CV: Regular rate and rhythm, S1, S2 Lungs: Clear to auscultation bilaterally, no rales or crackles noted, no wheezes, good air entry Abdomen: Soft, nontender, nondistended Extremities: Minimal erythema over anterior tibial area inferior to patella, open area, minimal serous drainage noted Skin: No rashes noted, no lesions or wounds seen Psych: Euthymic, normal affect Objective Data Vital Signs Vital Signs: Vital Signs - 24 hr 04/19/23 09:01 04/19/23 12:33 04/19/23 12:55 Temperature 97.6 F 98.1 F Pulse Rate 64 62 Respiratory Rate 18 18 Blood Pressure 149/78 H 136/81 Pulse Oximetry 100 99 Oxygen Delivery Room Air Room Air 04/19/23 20:39 04/19/23 20:00 04/19/23 22:32 Temperature 98 F Pulse Rate 63 Respiratory Rate 16 Blood Pressure 123/78 Pulse Oximetry 98 98 Oxygen Delivery Room Air Room Air 04/20/23 06:00 Temperature 98 F Pulse Rate 64 Respiratory Rate 16 Blood Pressure 123/77 Pulse Oximetry 99 Oxygen Delivery Intake/Output Intake/Output: Intake & Output 04/17/23 04/18/23 04/19/23 04/20/23 23:59 23:59 23:59 23:59 Intake Total 1270 450 Balance 1270 450 Meds/Results Medications: Active Medications Generic Name Dose Route Start Last Admin Trade Name Freq PRN Reason Stop Dose Admin Acetaminophen 650 mg 04/19/23 10:35 Acetaminophen 325 Mg Tablet PO Q4H PRN Mild Pain (1-3) or Fever Hydrocodone Bitart/Acetaminophen 1 tab 04/19/23 10:35 Hydrocodone/Acetaminophen (*Crx) 5-325 Mg Tablet PO Q4H PRN Pain Rated 7-10 Aspirin 81 mg 04/20/23 09:00 Aspirin 81 Mg Enteric Tablet PO BID ARISTEO Vancomycin HCl 1,500 mg in 500 mls @ 250 mls/hr 04/19/23 12:00 04/20/23 05:01 Vancomycin 1,500 Mg/D5w 500 Ml IVPB 250 mls/hr Q18H ARISTEO Administration Ceftriaxone Sodium 1 gm in 50 mls @ 100 mls/hr 04/20/23 08:00 Rocephin 1 Gm/Ns 50 Ml IVPB QAM ARISTEO Ondansetron HCl 4 mg 04/19/23 10:35 Ondansetron Inj 4 Mg/2 Ml Vial IV PUSH Q4H PRN Nausea Radiology Results: ITS Impressions Lower Extremity CT 04/19/23 10:14 IMPRESSION: Proximal anterior lower level approximately 3.9 x 1.2 x 5.4 cm encapsulated soft tissue abscess Edema and/or cellulitis of the lower leg, ankle and
[2023-04-20] MEDS: ASPIRIN 81 MG ENTERIC TABLET PO (08:52)
[2023-04-20] MEDS: CELECOXIB 200 MG CAPSULE PO (09:39)
[2023-04-20] MEDS: amLODIPine BESYLATE 5 MG TABLET 10 MG PO (09:39)
[2023-04-20] MEDS: LEVOTHYROXINE SODIUM 150 MCG TABLET PO (09:39)
[2023-04-20] MEDS: ATORVASTATIN 40 MG TABLET PO (09:39)
[2023-04-20] MEDS: LOSARTAN POTASSIUM 100 MG TABLET PO (09:39)
[2023-04-20] MEDS: LEVOTHYROXINE SODIUM 12.5 MCG TABLET PO (09:39)
[2023-04-20 09:41] LABS: Immunoglobulin A 169 mg/dL (70-400); Immunoglobulin G 1127 mg/dL (700-1600); Immunoglobulin M 232 mg/dL (40-230)
[2023-04-20 14:00] VITALS: BP 127/75; PULSE 69; RESP 18; TEMP 36.3; O2SAT 99
[2023-04-20 20:00] VITALS: PULSE 64; RESP 16; O2SAT 97
[2023-04-20 20:49] VITALS: BP 114/74; PULSE 64; RESP 16; TEMP 36.1; O2SAT 97
[2023-04-21] VITALS (12 sets, daily range): BP systolic 115–137; BP diastolic 67–86; PULSE 51–71; RESP 12–21; TEMP 36.1–36.6; O2SAT 95–100
[2023-04-21] MEDS: LEVOTHYROXINE SODIUM 150 MCG TABLET PO (04:15)
[2023-04-21] MEDS: LEVOTHYROXINE SODIUM 12.5 MCG TABLET PO (04:15)
[2023-04-21 07:03] LABS: Eosinophils Absolute Auto 0.2 K/mm3 (0-0.3); Eosinophils Percent Auto 5.7 % (0-4.4); Hematocrit 41.1 % (42.0-52.0); Hemoglobin 13.5 g/dL (14.0-18.0); Immature Granulocyte Absolute 0.07 K/mm3 (0.00-0.031); Immature Granulocyte Percent A 1.7 % (0-0.5); Lymphocytes Absolute Auto 1.07 K/mm3 (0.9-3.2); Lymphocytes Percent Auto 25.5 % (18.3-44.2); Mean Corpuscular HGB Conc 32.8 g/dl (32-36); Mean Corpuscular Hemoglobin 31.9 pg (26-34); Mean Corpuscular Volume 97.2 fl (80-100); Mean Platelet Volume 8.5 fl (7.4-10.4); Monocytes Absolute Auto 0.4 K/mm3 (0.1-0.6); Monocytes Percent Auto 10.5 % (2.6-8.5); Neutrophils Absolute Auto 2.3 K/mm3 (1.3-6.7); Neutrophils Percent Auto 55.6 % (45.5-73.1); Platelet Count Result 276 k/mm3 (150-375); Red Blood Count 4.23 M/mm3 (4.6-6.20); Red Cell Distribution Width 12.3 % (11.5-14.5); White Blood Count 4.2 K/mm3 (4.5-10.0)
[2023-04-21 07:57] LABS: Alanine Aminotransferase 57 U/L (6-50); Albumin Level 3.6 g/dL (3.5-5.1); Alkaline Phosphatase 78 U/L (38-126); Anion Gap 6 mmol/L (8-16); Aspartate Amino Transferase 31 U/L (17-59); Bilirubin,Total 0.3 mg/dL (0.2-1.3); Blood Urea Nitrogen 11 mg/dL (9-20); Calcium 8.4 mg/dL (8.4-10.2); Carbon Dioxide 25 mmol/L (22-30); Chloride 107 mmol/L (98-107); Estimated CRCL calculation 86 ml/min; Estimated Glomerular Filt Rate > 60; Glucose 105 mg/dL (65-110); Magnesium 2.5 mg/dL (1.6-2.3); Potassium 4.4 mmol/L (3.4-5.0); Sodium 138 mmol/L (137-145)
[2023-04-21] MEDS: LOSARTAN POTASSIUM 100 MG TABLET PO (08:14)
[2023-04-21] MEDS: amLODIPine BESYLATE 5 MG TABLET 10 MG PO (08:14)
--- NOTE | 2023-04-21 13:52 | PM.DS ---
DS: Admitting Diagnosis Discharge Date 04/21/2023 Admitting Diagnosis Cellulitis with abcess DS: Discharge Diagnosis Discharge Diagnosis (1) Abscess of right leg: Code(s): L02.415 - Cutaneous abscess of right lower limb Status: Acute Plan -Start Cefdinir 300 mg PO BID for 7 days -Keep incision clean and dry. Follow up with Dr Multani as directed. -Can take OTC acetaminophen 650 mg by mouth every six hours for pain -Please follow up with your regular PCP. -If you have not yet had a colonoscopy we also recommend you speak with you PCP about referring you for such testing. The [place] Preventative Task force recommends screening for all adults age 45 to 75 years of age. DS: Summary Hospital Course Hospital Course: You were admitted for a recurrent abscess with cellulitis formation. We treated you with IV vancomycin and ceftriaxone and you symptoms improved. You also had an I&D with wash out with Dr Multani. Wound cultures came back 04/21 with light growth of group beta strep. For this we are prescribing a 7 day course of Cefdinir 300 mg tablets by mouth twice a day. You may start this tomorrow. It was a pleasure caring for you. Thank you for choosing [facility]. Time Spent with Patient Time attestation: Total time spent providing and/or coordinating discharge services: 41 minutes Exam Narrative: General:? No acute distress, alert and oriented per baseline HEENT:? Atraumatic, normocephalic, mucous membranes moist CV:? Regular rate and rhythm, S1, S2 Lungs:? Clear to auscultation bilaterally, no rales or crackles noted, no wheezes, good air entry Abdomen:? Soft, nontender, nondistended Extremities:??area of warmth and erythema noted over anterior tibia, below the inferior patellar edge, + fluctuance. Small open area has developed with pink wound bed and purulent drainage. Gauze dressing is in place. Skin:? No rashes noted, no lesions or wounds seen Psych:? Euthymic, normal affect DS: Data Data Completed and Pending Labs on day of discharge: Labs from last 24 hours 04/21/23 06:43 WBC 4.2 L RBC 4.23 L Hgb 13.5 L Hct 41.1 L MCV 97.2 MCH 31.9 MCHC 32.8 RDW 12.3 Plt Count 276 MPV 8.5 Immature Gran % (Auto) 1.7 H Neut % (Auto) 55.6 Lymph % (Auto) 25.5 [place] % (Auto) 10.5 H Eos % (Auto) 5.7 H Baso % (Auto) 1.0 Lymph # (Auto) 1.07 [place] # (Auto) 0.4 Eos # (Auto) 0.2 Baso # (Auto) 0.0 Abs Immat Gran (auto) 0.07 H Absolute Neuts (auto) 2.3 Absolute Nucleated RBC 0.0 Nucleated RBC % 0.0 Sodium 138 Potassium 4.4 Chloride 107 Carbon Dioxide 25 Anion Gap 6 L BUN 11 Creatinine 0.80 Estim Creat Clear Calc 86 Estimated GFR > 60 Glucose 105 Calcium 8.4 Magnesium 2.5 H Total Bilirubin 0.3 AST 31 ALT 57 H Alkaline Phosphatase 78 Total Protein 7.0 Albumin 3.6 Blood Type A Positive Antibody Screen Negative Preliminary micro results at discharge 04/19/23 17:07 Wound Culture - Preliminary Leg Right Group B Streptococcus isolated 04/19/23 09:35 Blood Culture - Preliminary Blood 04/19/23 10:21 Blood Culture - Preliminary Blood Additional Comments Additional comments: Wound Culture Preliminary 04/21/23-1329 Q SOURCE: LEG RT STATUS: PRELIMINARY GRAM STAIN: Many White blood cells seen No organisms seen ISOLATE 1: Light growth of Group B Streptococcus isolated Beta-hemolytic streptococci are predictably susceptible to Penicillin and other beta-lactams. Susceptibility testing not routinely performed. Please contact the laboratory within 3 days if susceptibility testing is desired. NOTE: THIS RESULT IS FLAGGED ABNORMAL Discharge Plan Discharge Attending physician on discharge: Jessica Butler Consulting providers: Jessica Butler; Brenda Wong Discharging Clinician: Angie Manning
--- NOTE | 2023-04-21 15:36 | WPDANESEPPF ---
Anes - Initial Pre Proc Eval Procedure: Operation Date: 04/21/23 15:30 Proposed Procedures p Incision and Debridement Right Leg with Placement Antiobiotic Beads - Glen Multani MD <Dustin Robb, DO - Last Filed: 04/21/23 15:36> Date/Time: 04/21/23 15:36 <Dustin Robb DO - Last Filed: 04/21/23 15:36> Surgeon: Glen Multani MD <Dustin Robb, DO - Last Filed: 04/21/23 15:36> Pre Op Diagnosis: RLE Abscess & Cellulitis <Dustin Robb DO - Last Filed: 04/21/23 15:36> Patient Data Age: 52 Gender: M Height: 1.7 m Weight: 85 kg <Dustin Robb DO - Last Filed: 04/21/23 15:36> Last Vital Signs Temp 36.3 C L 04/21/23 14:00 Pulse 60 04/21/23 14:00 Resp 16 04/21/23 14:00 BP 115/74 04/21/23 14:00 Pulse Ox 98 04/21/23 14:00 O2 Del Method Room Air 04/21/23 09:06 <Dustin Robb DO - Last Filed: 04/21/23 15:36> Allergies Allergy/AdvReac Type Severity Reaction Status Date / Time amoxicillin Allergy Intermediate Other Verified 04/15/23 08:10 Penicillins Allergy Mild Other Verified 04/15/23 08:10 <Dustin Robb DO - Last Filed: 04/21/23 15:36> Home Medications Medication Instructions Recorded Confirmed Type amlodipine 10 mg tablet 10 mg PO DAILY 06/22/20 04/19/23 History levothyroxine 150 mcg tablet 150 mcg PO DAILY 06/22/20 04/19/23 History celecoxib 200 mg capsule (Celebrex) 200 mg PO DAILY #30 caps 06/25/22 04/19/23 Rx atorvastatin 20 mg tablet 40 mg PO DAILY 02/26/23 04/19/23 History losartan 100 mg tablet 100 mg PO DAILY 02/26/23 04/19/23 History levothyroxine 25 mcg tablet 12.5 mcg PO DAILY 03/17/23 04/19/23 History aspirin 81 mg tablet 81 mg PO DAILY 04/19/23 04/19/23 History <Dustin Robb, - Last Filed: 04/21/23 15:36> Laboratory Tests 04/21/23 06:43 WBC 4.2 L K/mm3 (4.5-10.0) RBC 4.23 L M/mm3 (4.6-6.20) Hgb 13.5 L g/dL (14.0-18.0) Hct 41.1 L % (42.0-52.0) MCV 97.2 fl (80-100) MCH 31.9 pg (26-34) MCHC 32.8 g/dl (32-36) RDW 12.3 % (11.5-14.5) Plt Count 276 k/mm3 (150-375) MPV 8.5 fl (7.4-10.4) Immature Gran % (Auto) 1.7 H % (0-0.5) Neut % (Auto) 55.6 % (45.5-73.1) Lymph % (Auto) 25.5 % (18.3-44.2) [place] % (Auto) 10.5 H % (2.6-8.5) Eos % (Auto) 5.7 H % (0-4.4) Baso % (Auto) 1.0 % (0.2-1.2) Lymph # (Auto) 1.07 K/mm3 (0.9-3.2) [place] # (Auto) 0.4 K/mm3 (0.1-0.6) Eos # (Auto) 0.2 K/mm3 (0-0.3) Baso # (Auto) 0.0 K/mm3 (0.0-0.1) Abs Immat Gran (auto) 0.07 H K/mm3 (0.00-0.031) Absolute Neuts (auto) 2.3 K/mm3 (1.3-6.7) Absolute Nucleated RBC 0.0 K/mm3 (0.0-0.012) Nucleated RBC % 0.0 % (0.0-0.2) Sodium 138 mmol/L (137-145) Potassium 4.4 mmol/L (3.4-5.0) Chloride 107 mmol/L (98-107) Carbon Dioxide 25 mmol/L (22-30) Anion Gap 6 L mmol/L (8-16) BUN 11 mg/dL (9-20) Creatinine 0.80 mg/dL (0.7-1.3) Estim Creat Clear Calc 86 ml/min Estimated GFR > 60 (59 - ) Glucose 105 mg/dL (65-110) Calcium 8.4 mg/dL (8.4-10.2) Magnesium 2.5 H mg/dL (1.6-2.3) Total Bilirubin 0.3 mg/dL (0.2-1.3) AST 31 U/L (17-59) ALT 57 H U/L (6-50) Alkaline Phosphatase 78 U/L (38-126) Total Protein 7.0 g/dL (6.3-8.2) Albumin 3.6 g/dL (3.5-5.1) Blood Type A Positive Antibody Screen Negative <Dustin Robb DO - Last Filed: 04/21/23 15:36> Patient hx anesthesia problems: none <Jason Luna MD - Last Filed: 04/21/23 17:24> Family hx anesthesia problems: none <Jason Luna MD - Last Filed: 04/21/23 17:24> Results Review: All pre-operative results and documents have been reviewed as part of the pre-operative evaluation. <Dustin Robb DO - Last Filed: 04/21/23 15:36> PMFSH Past Medical History
[2023-04-21] MEDS: LACTATED RINGERS 1,000 ML 30 ML IV CONT (17:01)
--- NOTE | 2023-04-21 17:07 | PC.NURSE ---
Patient to pre op via bed.
[2023-04-21 17:36] LABS: Vancomycin Trough 7.9 ug/mL (10.0-20.0)
--- NOTE | 2023-04-21 17:52 | PM.IMPN ---
Progress Note: A&P Assessment and Plan (1) Abscess of right leg: Code(s): L02.415 - Cutaneous abscess of right lower limb Status: Acute Plan RLE Abscess -Orthopedics is primary and plans to take patient to the OR today for I&D with placement of antibiotic beads. -Wound culture growing group B strep. Will recommend 7 day course of cefdinir 300 mg PO BID starting tomorrow 04/22. Patient is medically cleared for discharge after surgery. -Wound care per ortho. -Open and draining purulent fluid. Continue changing dry gauze dressing daily and PRN. -Receiving Vancomycin and Rocephin IV. Vanco trough 04/21 at 1700. -WBC 4.4 (6.0) today. Afebrile and no reports of chills or body aches. Acetaminophen prn should he develop a fever. -MRSA, wound culture, and blood cultures are pending. -ABIs--Toe brachial indices significantly decreased bilaterally indicating severe PAD below the ankles. -HgA1C 5.3% Hypertension -Blood pressures ranging 123-136/78-81. HR 60's. -Continue home amlodipine 10 mg PO daily and losartan 100 mg tablet PO daily Hypothyroidism -TSH WNL 2.250 -Continue levothyroxine 162.5 mcg PO daily Hyperlipidemia -Fasting labs Triglycerides 91, Total cholesterol 116, LDL 65, and HDL 25. -Receiving Atorvastatin 20 mg PO daily Subjective Date/time seen: 04/21/23 17:52 Interval history: Ricki Tang is a 52 year old male with past medical history significant for hypertension, hypothyroidism and hyperlipidemia as well as history of recurrent abscess presenting for the same.? He has been followed by Dr. Multani outpatient the last 2 months for periosteal abscess that was removed surgically March 20.? Pathology did confirm that it was an abscess as opposed to other etiology.? Shortly after removal, patient noted redness, swelling and fluctuance concerning for abscess.? Dr. Multani placed him on clindamycin outpatient.? Patient continued to have symptoms including fevers and pain as well as redness and swelling to the leg. No chest pain or shortness of breath.? No nausea, vomiting or diarrhea.? In the ER, he did not have any leukocytosis.? Venous Doppler some April 14 for negative for DVT.? CT of the leg did show a suspected abscess as well as cellulitis.? Dr. Multani recommended admission with IV abx. Interval history: 04/20: Mr Tang is found in bed watching television having just finished breakfast. When asked how he is feeling he replies great . He says that yesterday the abscess on his leg popped and gushed fluid. He denies pain besides some throbbing that occurs when he is ambulatory. He feels that the swelling has decreased as well as warmth and erythema. Otherwise he is feeling well, tolerating a diet, voiding appropriately. He denies h/a, dizziness, chest pain, SOB, and N/V/D. He says that orthopedics is taking him tomorrow afternoon to the OR for an I&D with washout. 04/21:To OR this afternoon for I&D with antibiotic beads per ortho. Medically ready for discharge. Wound culture growing group b strep. Rec's in plan. Patient is anticipating leaving today after procedure. Review of Systems Review of Systems: All systems reviewed & are unremarkable except as noted in HPI and below Exam Narrative: General:? No acute distress, alert and oriented per baseline HEENT:? Atraumatic, normocephalic, mucous membranes moist CV:? Regular rate and rhythm, S1, S2 Lungs:? Clear to auscultation bilaterally, no rales or crackles noted, no wheezes, good air entry Abdomen:? Soft, nontender, nondistended Extremities:??area of warmth and erythema noted over anterior tibia, below the inferior patellar edge, + fluctuance. Small open area has developed with pink wound bed and purulent drainage. Gauze dressing is in place. Skin:? No rashes noted, no lesions or wounds seen Psych:? Euthymic, normal affect Objective Data Vital Signs Vital Signs: Vital Signs - 24 hr 04/20/23 20:49 04/20/23 20:00 04/21/23 06:00 Temperature 97.0 F L 97.2 F L
--- NOTE | 2023-04-21 18:00 | WPDHPUPDATE1 ---
History and Physical Update Update Date/Time: 04/21/23 18:00 History and Physical has been reviewed, including an updated exam of the patient. There are NO changes in the patient's condition, other than the drainage has ceased.. Risks, benefits, and alternatives have been discussed and questions answered. Patient agrees to proceed with procedure.
[2023-04-21] MEDS: VANCOMYCIN HCL 1,000 MG VIAL 1000 MG XX (19:03)
--- NOTE | 2023-04-21 19:30 | P.OP_ITS ---
Procedure Note - Detailed Date of Procedure 04/21/23 Pre-op Diagnosis RLE Abscess & Cellulitis Post-op Diagnosis Same Procedure Performed I&D right leg abscess with placement of antibiotic beads. Surgeon Glen Multani MD General Internist And Physician Leader Beti S Anesthesia General Description of Procedure The patient was identified and proper site identified. He was taken to the operating room and transferred to the OR table placing supine taking care to pad his torso and extremities. After general anesthetic induction and intubation a nonsterile tourniquet was placed high on the right thigh. Right lower extremity was prepped and draped in usual sterile fashion. The leg was gravity exsanguinated tourniquet inflated to 300 millimeters of mercury remaining up only about 8 minutes. The original scar was used the incision and then extended proximally and distally. Aerobic and anaerobic cultures were obtained. There was a provisional debridement of the wound cavity with scalpel and rongeur. This was to remove any granulation tissue back to healthier appearing tissue and then the tourniquet was released. Wound was irrigated with a copious amount of sterile saline and then scrubbed with a sterile scrub sponge. 10 cc of Stimulan antibiotic beads with 1 gram of vancomycin 1.2 grams of tobramycin were prepared. These were placed into the wound using about 8 cc of the prepared material. The skin edges reapproximated with 2-0 Quill and 3-0 nylon interrupted sutures. A sterile dressing was applied. Tolerated the procedure well. Was awakened and extubated then taken to recovery area in stable condition. There were no known intraoperative complications. Estimated blood loss 30 milliliters. He was already receiving antibiotics IV. Estimated Blood Loss 30 Tourniquet Time 7 Drains No Packing Yes ( Antibiotic beads) Pathology Other ( intraoperative wound culture sent ) Complications No immediate complications Condition Stable Disposition PACU [facility] Billing Surgery - Charge Forward: Surgery Billing ([id number])
--- NOTE | 2023-04-21 19:55 | SUR.PHASEI ---
RIGHT LOWER LEG XRAYS DONE
[2023-04-21] MEDS: SODIUM CHLORIDE 0.9% IV 1,000 ML 125 ML IV CONT (20:54)
[2023-04-21] MEDS: FAMOTIDINE 20 MG TABLET PO (20:55)
[2023-04-22 01:57] VITALS: BP 108/67; PULSE 77; RESP 18; TEMP 37.1; O2SAT 98
[2023-04-22 05:57] VITALS: BP 115/66; PULSE 60; RESP 16; TEMP 36.8; O2SAT 96
[2023-04-22] MEDS: LEVOTHYROXINE SODIUM 150 MCG TABLET PO (06:12)
[2023-04-22] MEDS: LEVOTHYROXINE SODIUM 12.5 MCG TABLET PO (06:12)
[2023-04-22 06:17] LABS: Basophils Percent Auto 0.4 % (0.2-1.2); Eosinophils Percent Auto 0.2 % (0-4.4); Hematocrit 37.7 % (42.0-52.0); Immature Granulocyte Absolute 0.05 K/mm3 (0.00-0.031); Immature Granulocyte Percent A 0.9 % (0-0.5); Lymphocytes Percent Auto 12.5 % (18.3-44.2); Mean Corpuscular HGB Conc 34.5 g/dl (32-36); Mean Corpuscular Hemoglobin 32.6 pg (26-34); Mean Corpuscular Volume 94.5 fl (80-100); Mean Platelet Volume 8.2 fl (7.4-10.4); Monocytes Absolute Auto 0.2 K/mm3 (0.1-0.6); Monocytes Percent Auto 4.3 % (2.6-8.5); Neutrophils Absolute Auto 4.6 K/mm3 (1.3-6.7); Neutrophils Percent Auto 81.7 % (45.5-73.1); Platelet Count Result 356 k/mm3 (150-375); Red Blood Count 3.99 M/mm3 (4.6-6.20); Red Cell Distribution Width 11.9 % (11.5-14.5); White Blood Count 5.6 K/mm3 (4.5-10.0)
[2023-04-22 06:42] LABS: Alanine Aminotransferase 43 U/L (6-50); Albumin Level 3.6 g/dL (3.5-5.1); Alkaline Phosphatase 84 U/L (38-126); Anion Gap 8 mmol/L (8-16); Aspartate Amino Transferase 24 U/L (17-59); Bilirubin,Total 0.3 mg/dL (0.2-1.3); Blood Urea Nitrogen 12 mg/dL (9-20); Carbon Dioxide 23 mmol/L (22-30); Chloride 106 mmol/L (98-107); Estimated CRCL calculation 77 ml/min; Estimated Glomerular Filt Rate > 60; Glucose 145 mg/dL (65-110); Potassium 4.2 mmol/L (3.4-5.0); Sodium 137 mmol/L (137-145)
[2023-04-22] MEDS: FAMOTIDINE 20 MG TABLET PO ×2 (08:23→20:10)
[2023-04-22] MEDS: ASPIRIN 81 MG ENTERIC TABLET PO (08:23)
[2023-04-22] MEDS: amLODIPine BESYLATE 5 MG TABLET 10 MG PO (08:23)
[2023-04-22] MEDS: CELECOXIB 200 MG CAPSULE PO (08:23)
[2023-04-22] MEDS: LOSARTAN POTASSIUM 100 MG TABLET PO (08:23)
[2023-04-22] MEDS: ATORVASTATIN 40 MG TABLET PO (08:23)
[2023-04-22 09:57] VITALS: BP 126/66; PULSE 74; RESP 18; TEMP 37.7; O2SAT 97
--- NOTE | 2023-04-22 10:12 | PM.PNORT ---
Progress Note: A&P Assessment and Plan (1) Abscess of right leg: Code(s): L02.415 - Cutaneous abscess of right lower limb Status: Acute Plan 52-year-old male with what appears to be group B strep growing in a soft tissue abscess right leg. He is comfortable right now. I did discuss the surgery with him. The antibiotic beads will gradually get reabsorbed over the course of about a month or so. This should give us high levels of antibiotic at surgical site. I have requested input from the ID pharmacist for guidance regarding appropriate antibiotics for home. Hopefully we can get him on something oral. Although he has intolerance to penicillins he does tolerate cephalosporins. Time Spent With Patient Time with patient: 15 - 25 minutes Subjective Subjective Date/Time Seen: 04/22/23 10:12 Post Op day: 1 Principal diagnosis: Right lower leg soft tissue abscess Interval history: This document created with [id number] technology and is subject to vinyl dipper irregularities. 52-year-old male postop day one after debridement recurrent right lower leg soft tissue abscess. Also had antibiotic beads placed at the time surgery. Resting comfortably Review of Systems Constitutional: Constitutional: Denies anorexia Eyes: Eyes: Denies irritation and Denies loss of vision ENT: Reports Normal hearing present Cardiovascular: Cardiovascular: Denies chest pain and Denies dyspnea on exertion Respiratory: Respiratory: Denies cough and Denies dyspnea on exertion Gastrointestinal: Gastrointestinal: Denies abdominal pain and Denies bloating Genitourinary: Genitourinary: Denies dysuria Musculoskeletal: Musculoskeletal: Denies arthralgias Integumentary/Breasts: Skin/Breast: Denies skin ulcer Neurologic: Reports Normal hearing present and Denies loss of vision Hematologic/Lymphatic: Hematologic/Lymphatic: Denies easy bleeding Exam Const: General: cooperative, no acute distress and alert Nutritional Appearance: other Orientation/consciousness: patient oriented x3 Limitations: no limitations HENMT: Head: normal to inspection Chest: Chest palpation & inspection: normal inspection of the chest Resp: Effort & Inspection: normal respiratory effort and able to speak in complete sentences GI: Inspection: other (Nondistended) Neuro: General: patient oriented x3 Cognition (Neuro): normal cognition Speech: normal speech Gait exam (Neuro): Other gait observations present Extrem: General: normal to inspection and other Other: Exam of right leg shows very little swelling. Most of the erythema has resolved. Virtually no drainage at the incision site. Skin edges well approximated. Grossly neurovascular status intact right lower extremity Psych: Appearance: grossly normal Mental Status: mental status grossly normal Radiology Reports: Comments: EXAM:? XR tibia fibula RT 2V DATE: 04/21/2023 20:00 HISTORY: POST OP . COMPARISON:? None available CT 04/19/2023, x-MR 03/16/2023. FINDINGS:? Normal mineralization. No fracture or dislocation. No lytic or blastic lesion. Medial compartment hemiarthroplasty hardware, without complication. Moderate degenerative change in the patellofemoral and lateral compartment of the knee. Antibiotic beats project over the anterior proximal tibia. Mild degenerative change in the ankle joint. No erosion or periosteal change. Soft tissue swelling over the proximal tibia. No concerning radiopaque foreign body. IMPRESSION: Antibiotic bead placement over the anterior/proximal tibia. Reviewed, dictated and finalized at location K. Objective Data Vital Signs Vital Signs: Vital Signs - 24 hr 04/21/23 14:00 04/21/23 17:05 04/21/23 19:26 Temperature 97.3 F L 97.8 F 97.4 F L Pulse Rate 60 66 69 Respiratory Rate 16 20 21 H Blood Pressure 115/74 130/75 134/83
--- NOTE | 2023-04-22 11:47 | P.PNINF_ITS ---
Pharmacy ID Consult - Stewardship Interventions Type of Interventions: IV to PO Pharmacy ID Note: Subjective Pharmacy was consulted by Unique Multani regarding infectious diseases for Ricki Tang. Ricki Tang is a 52 year old M with concerns regarding cutaneous abscess growing GBS. Background The patient is currently receiving Ceftriaxone IV (with recent vancomycin IV discontinuation). The patient's PMH includes, among what has been previously not ed, a previous abscess that had underwent I&D and was cleared up via pathology confirmation and was treated thereafter with cephalexin and doxycycline (No cultures available in EMR for my review from that stay at this time) in March. Additionally, the patient underwent I and D for this abscess by the previous surgical site resulting in the 04/19 culture which showed the growth of group B streptococcus. Subsequent procedure was conducted on 04/21 in which antibiotic beads were also placed - ideally securing source control. The patient has not had leukocytosis since this stay had began with an estimated CrCl of 77 mL/min (SCr 0.9 mg/dL). Microbiology 04/21/23 18:47 Leg Right Anaerobic Culture - Preliminary 04/19/23 10:21 Blood Blood Culture - Preliminary 04/19/23 09:35 Blood Blood Culture - Preliminary 04/19/23 17:07 Leg Right Wound Culture - Final Group B Streptococcus isolated Assessment/Recommendation/Discussion Spoke with consulting provider regarding belief that source control was achieved between both procedures and antibiotic beads among other methods as well as this is potentially a recurrent SSTI. Agree that a 10d course from source control (04/21) is likely appropriate and common oral options exist for the management of GBS. Given the penicillin allergy of the patient and previous tolerance of cephalexin, will start patient on cephalexin starting tomorrow and stop ceftriaxone. cephalexin 500 mg q6h for the remainder of the duration. Will sign off at this time. Please consider reaching out if needed or can consider reconsultation. Thank you for the interesting consult. Riky Jacobs, PharmD Infectious Disease/Antimicrobial Stewardship Pharmacist 04/22/23; 1147 WBC 5.6 K/mm3 (4.5-10.0) 04/22/23 05:57 Creatinine 0.90 mg/dL (0.7-1.3) 04/22/23 05:57 Estim Creat Clear Calc 77 ml/min 04/22/23 05:57
--- NOTE | 2023-04-22 13:43 | WPDANESPN ---
Anes - Prog Note Post-Op Date/Time: 04/22/23 13:43 Vital Signs: Last Vital Signs Temp 37.7 C H 04/22/23 09:57 Pulse 74 04/22/23 09:57 Resp 18 04/22/23 09:57 BP 126/66 04/22/23 09:57 Pulse Ox 97 04/22/23 09:57 O2 Del Method Room Air 04/22/23 08:00 O2 Flow Rate 8 04/21/23 19:40 Pain Score (VAS): 2 I/O: Intake & Output 04/21/23 04/22/23 04/22/23 23:59 07:59 15:59 Intake Total 150 1650 1080 Output Total 1400 Balance [phone] Laboratory Tests 04/22/23 05:57 04/22/23 05:57 04/21/23 04/22/23 16:45 05:57 WBC 5.6 RBC 3.99 L Hgb 13.0 L Hct 37.7 L MCV 94.5 MCH 32.6 MCHC 34.5 RDW 11.9 Plt Count 356 MPV 8.2 Immature Gran % (Auto) 0.9 H Neut % (Auto) 81.7 H Lymph % (Auto) 12.5 L [place] % (Auto) 4.3 Eos % (Auto) 0.2 Baso % (Auto) 0.4 Lymph # (Auto) 0.70 L [place] # (Auto) 0.2 Eos # (Auto) 0.0 Baso # (Auto) 0.0 Abs Immat Gran (auto) 0.05 H Absolute Neuts (auto) 4.6 Absolute Nucleated RBC 0.0 Nucleated RBC % 0.0 Sodium 137 Potassium 4.2 Chloride 106 Carbon Dioxide 23 Anion Gap 8 BUN 12 Creatinine 0.90 Estim Creat Clear Calc 77 Estimated GFR > 60 Glucose 145 H Calcium 8.0 L Total Bilirubin 0.3 AST 24 ALT 43 Alkaline Phosphatase 84 Total Protein 7.0 Albumin 3.6 Vancomycin Trough 7.9 L Microbiology 04/21/23 18:47 Leg Right Anaerobic Culture - Preliminary 04/19/23 17:07 Leg Right Wound Culture - Final Group B Streptococcus isolated Patient Feedback: Patient satisfied with anesthetic care.
[2023-04-22 13:57] VITALS: BP 119/65; PULSE 64; RESP 16; TEMP 36.7; O2SAT 99
--- NOTE | 2023-04-22 16:16 | PM.IMPN ---
Progress Note: A&P Assessment and Plan (1) Abscess of right leg: Code(s): L02.415 - Cutaneous abscess of right lower limb Status: Acute Plan RLE Abscess -Orthopedics is primary and plans to take patient to the OR today for I&D with placement of antibiotic beads. -Wound culture growing group B strep. Will recommend 7 day course of cefdinir 300 mg PO BID starting tomorrow 04/22. Patient is medically cleared for discharge after surgery. -Wound care per ortho. -Open and draining purulent fluid. Continue changing dry gauze dressing daily and PRN. -Receiving Vancomycin and Rocephin IV. Vanco trough 04/21 at 1700. -WBC 4.4 (6.0) today. Afebrile and no reports of chills or body aches. Acetaminophen prn should he develop a fever. -MRSA, wound culture, and blood cultures are pending. -ABIs--Toe brachial indices significantly decreased bilaterally indicating severe PAD below the ankles. -HgA1C 5.3% Hypertension -Blood pressures ranging 123-136/78-81. HR 60's. -Continue home amlodipine 10 mg PO daily and losartan 100 mg tablet PO daily Hypothyroidism -TSH WNL 2.250 -Continue levothyroxine 162.5 mcg PO daily Hyperlipidemia -Fasting labs Triglycerides 91, Total cholesterol 116, LDL 65, and HDL 25. -Receiving Atorvastatin 20 mg PO daily The following rec's from Dr Butler, Patient independently seen and examined, case thoroughly discussed with RELOCATION COORDINATOR.? Patient has a long history of intermittent abscesses joint infections, as well as his brother.? Past medical history significant for hypothyroidism, hyperlipidemia, hypertension.? Unable to find previous wound cultures, this 1 is growing GBS.? Some concern for underlying autoimmune disorder.? IgG, IgM and IgA all within normal limits, not concerning for CVID.? Would recommend outpatient colonoscopy with biopsy for Crohn's/ulcerative colitis.? No other obvious autoimmune concerns noted per labs/imaging.? Patient continues to get recurrent abscesses, would recommend referral to immunology/infectious diseases for further workup and care.? Agree with assessment and plan otherwise as below. Subjective Date/time seen: 04/22/23 16:16 Interval history: Ricki Tang is a 52 year old male with past medical history significant for hypertension, hypothyroidism and hyperlipidemia as well as history of recurrent abscess presenting for the same.? He has been followed by Dr. Multani outpatient the last 2 months for periosteal abscess that was removed surgically March 20.? Pathology did confirm that it was an abscess as opposed to other etiology.? Shortly after removal, patient noted redness, swelling and fluctuance concerning for abscess.? Dr. Multani placed him on clindamycin outpatient.? Patient continued to have symptoms including fevers and pain as well as redness and swelling to the leg. No chest pain or shortness of breath.? No nausea, vomiting or diarrhea.? In the ER, he did not have any leukocytosis.? Venous Doppler some April 14 for negative for DVT.? CT of the leg did show a suspected abscess as well as cellulitis.? Dr. Multani recommended admission with IV abx. Interval history: 04/20: Mr Tang is found in bed watching television having just finished breakfast. When asked how he is feeling he replies great . He says that yesterday the abscess on his leg popped and gushed fluid. He denies pain besides some throbbing that occurs when he is ambulatory. He feels that the swelling has decreased as well as warmth and erythema. Otherwise he is feeling well, tolerating a diet, voiding appropriately. He denies h/a, dizziness, chest pain, SOB, and N/V/D. He says that orthopedics is taking him tomorrow afternoon to the OR for an I&D with washout. 04/21:To OR this afternoon for I&D with antibiotic beads per ortho. Medically ready for discharge. Wound culture growing group b strep. Rec's in plan. Patient is anticipating leaving today after procedure. 04/22: Patient was seen POD 1 from I&D with antibiotic bead placement. He
[2023-04-22 17:57] VITALS: BP 124/61; PULSE 72; RESP 16; TEMP 36.8; O2SAT 98
[2023-04-22 21:42] VITALS: BP 138/76; PULSE 77; RESP 16; TEMP 36.9; O2SAT 100
[2023-04-23 02:12] VITALS: BP 113/69; PULSE 58; RESP 16; TEMP 36.2; O2SAT 99
[2023-04-23] MEDS: LEVOTHYROXINE SODIUM 12.5 MCG TABLET PO (05:10)
[2023-04-23] MEDS: CEPHALEXIN 500 MG CAPSULE PO (05:10)
[2023-04-23] MEDS: LEVOTHYROXINE SODIUM 150 MCG TABLET PO (05:10)
[2023-04-23 05:49] VITALS: BP 118/72; PULSE 57; RESP 16; TEMP 36.2; O2SAT 98
[2023-04-23 07:07] LABS: Basophils Percent Auto 0.6 % (0.2-1.2); Eosinophils Absolute Auto 0.1 K/mm3 (0-0.3); Eosinophils Percent Auto 2.7 % (0-4.4); Hematocrit 37.9 % (42.0-52.0); Hemoglobin 12.5 g/dL (14.0-18.0); Immature Granulocyte Absolute 0.04 K/mm3 (0.00-0.031); Immature Granulocyte Percent A 0.8 % (0-0.5); Lymphocytes Percent Auto 31.3 % (18.3-44.2); Mean Corpuscular Volume 96.9 fl (80-100); Mean Platelet Volume 8.2 fl (7.4-10.4); Monocytes Absolute Auto 0.5 K/mm3 (0.1-0.6); Monocytes Percent Auto 9.8 % (2.6-8.5); Neutrophils Absolute Auto 2.6 K/mm3 (1.3-6.7); Neutrophils Percent Auto 54.8 % (45.5-73.1); Platelet Count Result 334 k/mm3 (150-375); Red Blood Count 3.91 M/mm3 (4.6-6.20); Red Cell Distribution Width 12.4 % (11.5-14.5); White Blood Count 4.8 K/mm3 (4.5-10.0)
[2023-04-23 07:22] LABS: Alanine Aminotransferase 41 U/L (6-50); Albumin Level 3.6 g/dL (3.5-5.1); Alkaline Phosphatase 68 U/L (38-126); Anion Gap 7 mmol/L (8-16); Aspartate Amino Transferase 24 U/L (17-59); Bilirubin,Total 0.2 mg/dL (0.2-1.3); Blood Urea Nitrogen 13 mg/dL (9-20); Calcium 8.4 mg/dL (8.4-10.2); Carbon Dioxide 27 mmol/L (22-30); Chloride 105 mmol/L (98-107); Estimated CRCL calculation 70 ml/min; Estimated Glomerular Filt Rate > 60; Glucose 103 mg/dL (65-110); Potassium 4.3 mmol/L (3.4-5.0); Sodium 139 mmol/L (137-145)
[2023-04-23] MEDS: LOSARTAN POTASSIUM 100 MG TABLET PO (07:56)
[2023-04-23] MEDS: ATORVASTATIN 40 MG TABLET PO (07:56)
[2023-04-23] MEDS: CELECOXIB 200 MG CAPSULE PO (07:56)
[2023-04-23] MEDS: ASPIRIN 81 MG ENTERIC TABLET PO (07:57)
[2023-04-23] MEDS: amLODIPine BESYLATE 5 MG TABLET 10 MG PO (07:57)
[2023-04-23] MEDS: FAMOTIDINE 20 MG TABLET PO (07:57)
--- NOTE | 2023-04-23 08:07 | PM.DS ---
DS: Admitting Diagnosis Discharge Date April 23, 2023 Admitting Diagnosis recurrent soft tissue abscess right lower leg DS: Discharge Diagnosis Discharge Diagnosis Plan plan discharge home on cefdinir for one week. Follow up in two weeks for suture removal. Has got antibiotic beads deep in the wound which will gradually reabsorb over the course of the next 30 days or so. Instructed to keep the right leg maximally elevated and minimize activities. Also instructed to call with any questions prior to follow-up. DS: Summary Hospital Course Hospital Course: Following the patient's admission he was started on IV antibiotics. Was seen by hospitalist during the hospitalization who assisted with the medical issues. Also got input from the ID pharmacist. Group B strep is what grew out of the wound. Was discharged home on postop day two. Status at Discharge Functional status at discharge: independent ambulation Overall status at discharge: patient is not back to baseline ( Markedly improved) Time Spent with Patient Time attestation: Total time spent providing and/or coordinating discharge services: Exam Const: General: cooperative Extrem: Other: right lower leg wound well apposed, no erythema, no drainage and very little swelling. Neurovascular status unremarkable right lower extremity. DS: Data Data Completed and Pending Labs on day of discharge: Labs from last 24 hours 04/23/23 06:40 WBC 4.8 RBC 3.91 L Hgb 12.5 L Hct 37.9 L MCV 96.9 MCH 32.0 MCHC 33.0 RDW 12.4 Plt Count 334 MPV 8.2 Immature Gran % (Auto) 0.8 H Neut % (Auto) 54.8 Lymph % (Auto) 31.3 [place] % (Auto) 9.8 H Eos % (Auto) 2.7 Baso % (Auto) 0.6 Lymph # (Auto) 1.50 [place] # (Auto) 0.5 Eos # (Auto) 0.1 Baso # (Auto) 0.0 Abs Immat Gran (auto) 0.04 H Absolute Neuts (auto) 2.6 Absolute Nucleated RBC 0.0 Nucleated RBC % 0.0 Sodium 139 Potassium 4.3 Chloride 105 Carbon Dioxide 27 Anion Gap 7 L BUN 13 Creatinine 1.00 Estim Creat Clear Calc 70 Estimated GFR > 60 Glucose 103 Calcium 8.4 Total Bilirubin 0.2 AST 24 ALT 41 Alkaline Phosphatase 68 Total Protein 7.0 Albumin 3.6 Preliminary micro results at discharge 04/21/23 18:47 Anaerobic Culture - Preliminary Leg Right 04/19/23 09:35 Blood Culture - Preliminary Blood 04/19/23 10:21 Blood Culture - Preliminary Blood Discharge Plan Discharge Attending physician on discharge: Jessica Butler Consulting providers: Brenda Wong; Jessica Butler Discharging Clinician: Glen Multani Anticipated Discharge Date/Time: 04/21/23 08:00 Patient Disposition: Home, Self-Care Activity: no shower and other - see discharge instructions Diet: as tolerated and regular Wound Care Instructions: keep dressing dry and other - see discharge instructions Discharge Instructions: -Start Cefdinir 300 mg PO BID for 7 days -Keep incision clean and dry. Follow up with Dr Multani as directed. -Can take OTC acetaminophen 650 mg by mouth every six hours for pain -Please follow up with your regular PCP. -If you have not yet had a colonoscopy we also recommend you speak with you PCP about referring you for such testing. The [place] Preventative Task force recommends screening for all adults age 45 to 75 years of age. -Please seek medical attention should you develop worsening redness,swelling, new or increased drainage to RLE, and or fever. Please contact Dr. Multani's office to verify your follow-up appointment for two weeks from discharge. Please limit your activities and trying keep this is elevated as much as possible. Can use ice to the area if there is any swelling. Please contact the office with any questions related to this prior to follow-up. Please take one baby aspirin a day for the next six weeks for DVT prophylaxis. Patient Instructions: Antibiotic Form Stand Alone Forms: General Discharge Information Foll
== END 2023-04-23 09:44 | disposition home or self-care (01) | DRG 603 ==
LOC: ANHED 09:37 → ANH3MEDSUR 11:15
PROVIDERS: Student in an Organized Health Care Education/Training Program; Admitting Provider Orthopaedic Surgery; Emergency Provider Physician Assistant; Visit Provider Orthopaedic Surgery
PROC: 0Y9H0ZZ Drainage of Right Lower Leg, Open Approach (ICD-10-PCS; principal; 2023-04-21 15:30)
DX: L02.415 Cutaneous abscess of right lower limb (principal); B95.1 Streptococcus, group B, as the cause of diseases classified elsewhere; L03.115 Cellulitis of right lower limb; I73.9 Peripheral vascular disease, unspecified; E78.5 Hyperlipidemia, unspecified; I10 Essential (primary) hypertension; E03.9 Hypothyroidism, unspecified; M70.41 Prepatellar bursitis, right knee; Z87.891 Personal history of nicotine dependence
CPT/HCPCS: 36415; 73590; 73701; 80053; 80061; 80202; 82784; 83036; 83605; 83735; 84145; 84443; 85025; 86140; 86850; 86900; 86901; 87040; 87070; 87075; 87081; 87147; 87181; 87186; 87205; 93922; 96365; 96366; 96367; 99285; A9270; G0378; J0690; J0696; J1100; J2250; J2405; J2704; J3010; J3260; J3370; J7030; J7120; Q9967

== ENCOUNTER 2024-06-24 06:05 | Day surgery (SDC) | payer OTHER, SELFPAY ==
[2024-06-11 09:55] VITALS: BMI 27.9
--- NOTE | 2024-06-23 11:15 | WPDANESEPPF ---
Anes - Initial Pre Proc Eval Procedure: Operation Date: 06/24/24 10:15 Proposed Procedures p Left Cubital Tunnel Release - Leobardo Phillips MD Date/Time: 06/23/24 11:15 Surgeon: Leobardo Phillips MD Pre Op Diagnosis: Lesion Left Ulnar Nerve Patient Data Age: 53 Gender: M Height: 1.7 m Weight: 81 kg Allergies Allergy/AdvReac Type Severity Reaction Status Date / Time amoxicillin Allergy Intermediate Other Verified 06/24/24 08:31 Penicillins Allergy Mild Other Verified 06/24/24 08:31 Home Medications Medication Instructions Recorded Confirmed Type amlodipine 10 mg tablet 10 mg PO DAILY 06/22/20 06/24/24 History levothyroxine 150 mcg tablet 150 mcg PO DAILY 06/22/20 06/24/24 History losartan 100 mg tablet 100 mg PO DAILY 02/26/23 06/24/24 History levothyroxine 25 mcg tablet 12.5 mcg PO DAILY 03/17/23 06/24/24 History aspirin 81 mg tablet 81 mg PO DAILY 04/19/23 06/24/24 History atorvastatin 40 mg tablet 40 mg PO DAILY 06/11/24 06/24/24 History duloxetine 20 mg capsule,delayed 20 mg PO DAILY 06/11/24 06/24/24 History release multivitamin with minerals-folic 1 tablet PO DAILY 06/11/24 06/24/24 History acid 0.4 mg tablet tramadol 50 mg tablet 50 mg PO Q6H PRN pain #12 tabs 06/24/24 Rx Patient hx anesthesia problems: none Family hx anesthesia problems: none Results Review: All pre-operative results and documents have been reviewed as part of the pre-operative evaluation. 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 Septic prepatellar bursitis of right knee Surgical History Surgical History (Updated 07/09/23 @ 07:51 by Glen Melgar*MD) Abscess of right leg Encapsulated subcutaneous/ periosteal abscess along with medial metaphyseal flare - excised March 20, 2023 Recurrence April 2023 Left rotator cuff tear Repair January 2021 Status post unicompartmental knee replacement left side 01/06/14, right side 04/30/18 Family History Family History Father Cancer Sibling Acute myocardial infarction Grandparent Heart disease Acute myocardial infarction Hypertension Social History Social History Smoking packs per day: 1 Smoking cigarettes per day: 20.0 Years smoked: 20 Smoking pack-years: 20.00 Smoking status: Former smoker Tobacco type: cigarettes Smoking end date: 09/15/10 Additional smoking assessment comments: Quit 2009 Alcohol intake: current Alcohol use details: 1-2 drinks per month Substance use: never Substance use type: does not use Last use: 2009 Lack of Transportation: No Lack of Food: Never True Current Housing: I Have Housing Concerned About Future Housing: No Difficulty Paying Gas/Electric Bills: No Difficulty Paying for Meds: No Currently Unemployed: No Education: High School Diploma/GED Difficulty w/ Childcare or Family Care: No Living arrangements: with family Gender identity (if verbalized by the patient): Male Spiritual care concerns: No Anes - Eval Final PreProcedure Day of Procedure 06/23/24 11:15 Patient weight: overweight Heart: regular rate and rhythm Lungs: clear to auscultation Airway: Mallampati scale class II Neurological: alert and oriented Last oral intake: >/= 8 hours ASA classification: III Emergent: no Anesthetic plan: proceed Anesthesia type and monitoring: general GIVS and standard monitoring Results Review: All pre-operative results and documents have been reviewed as part of the pre-operative evaluation. Informed Consent: The patient's anesthetic plan and its attendant risks and benefits were discussed with the patient/family/POA. Questions were s
--- NOTE | 2024-06-24 06:54 | WPDHPUPDATE1 ---
History and Physical Update Update Date/Time: 06/24/24 06:54 Patient seen and examined in pre-operative holding area. No interval change in medical history or symptoms. Patient recalls previous discussion of benefits and alternatives to procedure. Continues to desire to proceed with left cubital tunnel release. Reviewed procedure, post-op expectations and risks including but not limited to bleeding, infection, injury to tendon/nerve/vessel, decreased hand function, stiffness, RSD, no change or worsening of symptoms. I discussed the possible use of assistants and their participation in the case. Patient stated understanding and signed the consent form wishing to proceed.
--- NOTE | 2024-06-24 06:57 | PM.HPGS ---
History of Present Illness History of Present Illness Chief complaint: Lesion Left Ulnar Nerve Narrative: Patient seen and examined in pre-operative holding area. No interval change in medical history or symptoms. Patient recalls previous discussion of benefits and alternatives to procedure. Continues to desire to proceed with left cubital tunnel release. Reviewed procedure, post-op expectations and risks including but not limited to bleeding, infection, injury to tendon/nerve/vessel, decreased hand function, stiffness, RSD, no change or worsening of symptoms. I discussed the possible use of assistants and their participation in the case. 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 Septic prepatellar bursitis of right knee Surgical History Surgical History (Updated 07/09/23 @ 07:51 by Glen Clay MD) Abscess of right leg Encapsulated subcutaneous/ periosteal abscess along with medial metaphyseal flare - excised March 20, 2023 Recurrence April 2023 Left rotator cuff tear Repair January 2021 Status post unicompartmental knee replacement left side 01/06/14, right side 04/30/18 Family History Family History Father Cancer Sibling Acute myocardial infarction Grandparent Heart disease Acute myocardial infarction Hypertension Social History Social History Smoking packs per day: 1 Smoking cigarettes per day: 20.0 Years smoked: 20 Smoking pack-years: 20.00 Smoking status: Former smoker Tobacco type: cigarettes Smoking end date: 09/15/10 Additional smoking assessment comments: Quit 2009 Alcohol intake: current Alcohol use details: 1-2 drinks per month Substance use: never Substance use type: does not use Last use: 2009 Lack of Transportation: No Lack of Food: Never True Current Housing: I Have Housing Concerned About Future Housing: No Difficulty Paying Gas/Electric Bills: No Difficulty Paying for Meds: No Currently Unemployed: No Education: High School Diploma/GED Difficulty w/ Childcare or Family Care: No Living arrangements: with family Gender identity (if verbalized by the patient): Male Spiritual care concerns: No Meds Home Medications and Allergies Home Medications Medication Instructions Recorded Confirmed Type amlodipine 10 mg tablet 10 mg PO DAILY 06/22/20 06/24/24 History levothyroxine 150 mcg tablet 150 mcg PO DAILY 06/22/20 06/24/24 History losartan 100 mg tablet 100 mg PO DAILY 02/26/23 06/24/24 History levothyroxine 25 mcg tablet 12.5 mcg PO DAILY 03/17/23 06/24/24 History aspirin 81 mg tablet 81 mg PO DAILY 04/19/23 06/24/24 History atorvastatin 40 mg tablet 40 mg PO DAILY 06/11/24 06/24/24 History duloxetine 20 mg capsule,delayed 20 mg PO DAILY 06/11/24 06/24/24 History release multivitamin with minerals-folic 1 tablet PO DAILY 06/11/24 06/24/24 History acid 0.4 mg tablet tramadol 50 mg tablet 50 mg PO Q6H PRN pain #12 tabs 06/24/24 Rx Allergies Allergy/AdvReac Type Severity Reaction Status Date / Time amoxicillin Allergy Intermediate Other Verified 06/24/24 08:31 Penicillins Allergy Mild Other Verified 06/24/24 08:31 Exam Narrative: unchanged Assessment and Plan Assessment and plan (1) Entrapment of left ulnar nerve at elbow: Code(s): G56.22 - Lesion of ulnar nerve, left upper limb Status: Acute Assessment and Plan: cont as above
--- NOTE | 2024-06-24 06:58 | P.OP_ITS ---
Procedure Note - Detailed Date of Procedure 06/24/24 Pre-op Diagnosis left cubital tunnel release Post-op Diagnosis Same Procedure Performed left cubital tunnel release Surgeon Leobardo Phillips MD [employer] Assistant Principal ju galvan pa-c Anesthesia MAC Description of Procedure INFORMED CONSENT:The patient was seen and examined and marked in the pre-op area.? The patient signed the consent form. PROCEDURE IN DETAIL: The patient taken back to OR on the stretcher in supine position. Time out performed with anesthesia, surgeon and staff agreeing on patient's name site and surgery to be performed SCDs were placed on the lower extremities and inflated A tourniquet was placed on {left} upper extremity and antibiotics given IV After anesthesia administered sedation I injected {8}cc 1%lido with epi and 0.5% marcaine plain at the operative site The?{left upper extremity}?was prepped and draped in sterile fashion the??{left upper extremity} was??exsanguinated with Esmarch bandage and tourniquet inflated to 250mmHg I next proceeded with making a longitudinal incision between two heads for f lexor carpi ulnaris at end of {left} cubital tunnel with 15 blade scalpel.? Littler scissors were used to spread down to FCU fascia.? An incision was made in FCU fascia and ulnar nerve identified exiting cubital tunnel.? I proceeded with complete retrograde release of the cubital tunnel including 7cm proximal for the intermuscular septum.? The nerve appeared healthy with visible vaso nervorum.? There was no subluxation on full elbow range of motion. ? I irrigated with normal saline and closure with 3-0 vicryl and 4-0 monocryl . The incision was covered with Dermabond then 4x4s, sharon, and a posterior elbow splint for patient safety, security and comfort and secured with magalie bandages after the tourniquet was let down noting the hand was warm and well perfused.? Patient awaken from anesthesia and transferred to recovery in stable condition Complications - none EBL- 1cc Disposition - home in stable conditions ju galvan pa-c was essential for positioning, retraction, closure and dres sing placement [facility] Billing Surgery - Charge Forward: Surgery Billing ([id number] for ju)
[2024-06-24 08:34] VITALS: BMI 28.6
[2024-06-24 08:35] VITALS: BP 129/83; PULSE 47; RESP 18; TEMP 36.4; O2SAT 100
[2024-06-24] MEDS: LACTATED RINGERS 1,000 ML 30 ML IV CONT (08:45)
--- NOTE | 2024-06-24 08:52 | SUR.PREOP ---
DR BRIDGES NOTIFIED THAT PT TOOK HIS LOSARTAN THIS AM AND RESTING HR WAS 47-50
[2024-06-24] MEDS: ceFAZolin SODIUM 2 GM/20 ML SW SYRINGE IV PUSH (09:11)
[2024-06-24] MEDS: LIDO 1%/EPINEPHRINE 1:100,000 50 ML VIAL INFILTRATE (09:29)
[2024-06-24 09:38] VITALS: BP 108/70; PULSE 60; RESP 15; O2SAT 94
[2024-06-24 09:48] VITALS: BP 110/69; PULSE 45; RESP 16; O2SAT 99
[2024-06-24 09:58] VITALS: BP 122/75; PULSE 55; RESP 18; O2SAT 100
--- NOTE | 2024-06-24 11:10 | WPDANESPN ---
Anes - Prog Note Post-Op Date/Time: 06/24/24 11:10 Cardiovascular status: normal Respiratory status: normal Airway patency: baseline Mental status: baseline Post-Op hydration status: normal Vital Signs: Last Vital Signs Temp 36.4 C 06/24/24 08:35 Pulse 55 L 06/24/24 09:58 Resp 18 06/24/24 09:58 BP 122/75 06/24/24 09:58 Pulse Ox 100 06/24/24 09:58 O2 Del Method Room Air 06/24/24 09:58 Pain Score (VAS): 0 I/O: Intake & Output 06/23/24 06/24/24 06/24/24 23:59 07:59 15:59 Intake Total 50 Balance 50 Post-procedural complaints: none Patient Feedback: Patient satisfied with anesthetic care. Other Findings: Patient vital signs back to baseline. Patient denies nausea and vomiting. Patient's pain under control. Patient OK for discharge.
== END 2024-06-24 10:12 | disposition home or self-care (01) ==
PROVIDERS: PCP Physician Assistant; Visit Provider Plastic Surgery
PROC: (CPT 64718; principal; 2024-06-24 10:15)
DX: G56.22 Lesion of ulnar nerve, left upper limb (principal)
CPT/HCPCS: 64718

== ENCOUNTER 2025-02-22 08:05 | Outpatient (CLI) | payer OTHER, SELFPAY ==
--- OUTSIDE RECORDS SUMMARY | 2025-02-22 08:15 | XMS_ITS | Encounter Summary ---
Author Organization [facility] Address [address] [place] [address] Care Team Providers Care Woodworking Machinist Name Role Phone Malissa Bean PA-C Primary Care Provider [phone]- [phone] Glen Multani MD Unavailable Encounter Details Date Type Department Care Team (Late Contact Info) Description 03/12/2017 Abstract [facility] CONVERSION [address] [place] [address] , Generic Conversion, Social History Tobacco Use Types Packs/Day Years Used Date Smoking Tobacco: Never Assessed Sex and Gender Information Value Date Recorded Sex Assigned at Male 09/15/2018 6:09 PM DOG HANDLER Legal Sex Male 6:51 PM CDT Gender Identity Male 09/15/2018 6:09 PM DOG HANDLER Sexual Orientation Straight 09/15/2018 6: 09 PM DOG HANDLER documented as of this encounter Plan of Treatment Upcoming Encounters Date Type Department Care Team ([facility] Contact Info) Description 07/12/2025 8:20 AM CDT Office Visit [facility] - [address] [phone] Gasper Estes MD [address] [place] [id number] 09/08/2025 2:30 PM DOG HANDLER Office Visit [facility] [phone] Rex King MD Three [facility]. [address] [place] [address] documented as of this encounter Visit Diagnoses Not on filedocumented in this encounter Care Teams Woodworking Machinist Relationship Specialty Start Date End Date Malissa Bean PA-C [address] [place], [place] [phone] PCP - General PHYSICIAN SUPERVISOR CIGAR MAKING MACHINE 09/14/18 Glen Multani MD [address] [place] [address] ORTHOPAEDICS 12/22/20 Dr. Leobardo Phillips ORTHOPAEDIC SURGERY 07/06/24 documented as of this encounter
--- OUTSIDE RECORDS SUMMARY | 2025-02-22 08:15 | XMS_ITS | Encounter Summary ---
Author Organization [facility] Address [facility] [place] [address] Care Team Providers Care Ride Attendant Name Role Phone Malissa Bean PA-C Primary Care Provider +1- [phone] Glen Multani MD Unavailable [phone] Encounter Details Date Type Department Care Team (Late Contact Info) Description 12/24/2024 [facility] Message [address] [phone] Mychart, [facility] Provider Results Social History Tobacco Use Types Packs/Day Years Used Date Smoking Tobacco: Former Cigarettes 1 20 1 11/15/1989 - 09/15/2010 Passive Smoke Exposure: Past Smokeless Tobacco: Never Comments:quit in 2009 Alcohol Use Standard Drinks/Week Comments Yes 0 (1 standard drink = 0.6 oz pur e alcohol) AUDIT-C Answer Date Recorded Frequency of Alcohol Consumption Never 09/15/2018 Average Number of Drinks Not on file 018 Frequency of Binge Drinking Not on file 09/03 PHQ-2 Answer Date Recorded Patient Health Questionnaire-2 Score 0 12/20/2024 Sex and Gender Information Value Date Recorded Sex Assigned at Male 09/15/2018 6:09 PM RADIATION THERAPIST Legal Sex Male 6:51 PM CDT Gender Identity Male 09/15/2018 6:09 PM RADIATION THERAPIST Sexual Orientation Straight 09/15/2018 6: 09 PM RADIATION THERAPIST 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 [address] [place] [address] documented as of this encounter Visit Diagnoses Not on filedocumented in this encounter Additional Health Concerns Assessment Noted Time PHQ-9 Depression Total Score: 0 07/20/20 3:36 PM CDT documented as of this encounter Care Teams Ride Attendant Relationship Specialty Start Date End Date Malissa Bean PAUgoC [address] [facility] [address] [place], [place] [phone] PCP - General PHYSICIAN SURVEY WORKER 09/14/18 Glen Multani MD [address] [place] [place] [address] ORTHOPAEDICS 12/22/20 Dr. Leobardo Phillips ORTHOPAEDIC SURGERY 07/06/24 documented as of this encounter
--- OUTSIDE RECORDS SUMMARY | 2025-02-22 08:15 | XMS_ITS | Clinical Summary ---
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 Gender Identity Not on file Sexual Orientation Not on file Plan of Treatment Health Maintenance Due Date Last Done Comments Hepatitis C Virus (HCV) Screening 1968 Hepatitis B Immunization (1 of 3 - 19+ 3-dose series) 1987 Colonoscopy 2013 Colorectal Cancer Screening 2013 Cologuard 2018 Immunochemical Fecal Occult Blood 2018 Pneumococcal Immunization (5 0+ years) (2 of 2 - PPSV23) 2018 12/24/2014 Zoster Immunization (1 of 2) 2018 PSA Discussion 2023 Influenza Immunization (#1) 2024 SARS-COV-2 Immunization ( - season) 2024 Respiratory Syncytial Virus (RSV) Immunization (Adult) (1 - 1-dose 75+ series) 2043 Pneumococcal Immunization Combined Discontinued 2014 DTaP/Tdap/Td Immunization Discontinued 07/21/2020 TdaP Immunization Completed 07/21/2020 Meningococcal Immunization (ACWY) Aged Out No longer eligible based on patient's age to complete this topic Rotavirus Immunization Aged Out No lo nger eligible based on patient's age to complete this topic
--- OUTSIDE RECORDS SUMMARY | 2025-02-22 08:15 | XMS_ITS | Clinical Summary ---
Author Organization [facility] Address [address] [place] [phone] Care Team Providers Care Er Physician Name Role Phone Malissa Bean Primary Care Provider + Allergies Active Allergy Reactions Criticality Noted Date Comments Lisinopril Cough Low 09/09/2022 Penicillins Rash,Unknown Medium 08/04/2018 Pt states reaction: low blood pressure and body felt like on fire . Medications amLODIPine (NORVASC) 10 mg tablet 2 Active atorvastatin (LIPITOR) 40 mg tablet 2 Active levothyroxine (SYNTHROID) 175 mcg tablet Take 175 mcg by mouth medical director occupational health before breakfast 2 Active lisinopriL (PRINIVIL,ZESTR IL) 40 mg tablet 2 Active meloxicam (MOBIC) 15 mg tablet Take 15 mg by mouth daily 2 Active aspirin 81 mg enteric coated tablet Take 81 mg by mouth daily Active celecoxib (CeleBREX) 200 mg capsule Take 200 mg by mouth 2 (two) times a day 3 Active losartan (COZAAR) 100 mg tablet Take 1 tablet by mouth daily 3 Active Active Problems Problem Noted Date Diagnosed Date Hyperlipidemia 02/26/2022 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 02/26/2022 Overview (02/26/2022): stage IV Primary hypothyroidism 01/15/2017 Essential hypertension 12/06/2013 Overview (02/26/2022): not on medicine Surgical History Surgery Date Site/Laterality Comments REPLACEMENT TOTAL KNEE BILATERAL 2017 SHOULDER SURGERY Left 2019 Medical History Medical History Date Comments Hypertension Hyperlipidemia Hypothyroidism Family History Medical History Relation Name Comments Stent Brother Cancer Father Fibromyalgia Sister 1 Heart attack Sister 1 Heart attack Sister 2 Stent Sister 2 Relation Name Status Comments Brother Father Sister 1 Sister 2 Social History Tobacco Use Types Packs/Day Years Used Date Smoking Tobacco: Former Cigarettes Q uit: 2009 Passive Smoke Exposure: Never Smokeless Tobacco: Never Tobacco Cessation:Counseling Given: Not Answered Personal Safety Answer Date Recorded Getting School Help Needed Not on file 11/06 Sex and Gender Information Value Date Recorded Sex Assigned at Not on file 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 Gender Identity Not on file Sexual Orientation Not on file Obstetrics History Last Filed Vital Signs Vital Sign Reading Time Taken Comments Blood Pressure 149/80 01/22/2023 8:01 AM CDT Pulse 60 01/22/2023 8:01 AM CDT Temperature 36.8 C (98.3 F) 01/22/2023 8:01 AM CDT Respiratory Rate - - Oxygen Saturation 96% 01/22/2023 8:01 AM CDT r.a Inhaled Oxygen Concentration - - Weight 88.5 kg (195 lb) 01/22/2023 8:01 AM CDT Height 170.2 cm (5' 7 ) 01/22/2023 8:01 AM CDT Body Mass Index 30.54 01/22/2023 8:01 AM CDT Plan of Treatment Health Maintenance Due Date Last Done Comments Colon Cancer Screening-Colonoscopy 1968 Depression Screening 1968 Hepatitis C Screening 1968 Prostate Cancer Screening-PSA 1968 Regular Well Visit/Exam 18-64 1986 Zoster Vaccine (1 of 2) 2018 Influenza Vaccine (Season Ended) 2025 09/15/2010 DTaP/Tdap/Td Vaccine (6 - Td or Tdap) 07/08/2031 07/08/2021, 07/21/2020, 11/14/2011, Additional history exists Hepatitis B Screening Completed 11/14/2011 Pneumococcal vaccine <65 Aged Out 12/24/2014, 09/03 No longer eligible based on patient's age to complete this topic Insurance [facility] PL[facility] PL[facility] Care Teams Er Physician Relationship Specialty Start Date End Date Malissa Bean PA [address] [place] [address] PCP - General Physician Header Boss 04/09/22
--- OUTSIDE RECORDS SUMMARY | 2025-02-22 08:15 | XMS_ITS | Clinical Summary ---
Author Organization [facility] Address [address] [place] [address] Care Team Providers Care Manager Payment Name Role Phone Malissa Alvarez PA-C Primary Care Provider [phone] Glen Multani MD Unavailable Allergies Active Allergy Reactions Criticality Noted Date Comments Amoxicillin Rash Low 09/15/2018 Pt states reaction: low blood pressure and body felt like on fire . Lisinopril Cough 09/09/2022 Penicillins Unknown Low 08/04/2018 Medications Multiple Vitamin (ONE-A-DAY MENS) Tab Take by mouth daily. 3 Active aspirin EC (ECOTRIN) 81 MG tablet Take 1 tablet (81 mg total) by mouth daily. Active losartan (COZAAR) 100 MG tablet TAKE 1 TABLET BY MOUTH DAILY 90 tablet 1 5 Active amLODIPine (NORVASC) 10 MG tabletIndications:E ssential hypertension Take 1 tablet (10 mg total) by mouth daily. 90 tablet 3 5 Active atorvastatin (LIPITOR) 40 MG tabletIndications:M ixed hyperlipidemia Take 1 tablet (40 mg total) by mouth daily. 90 tablet 3 5 Active DULoxetine (CYMBALTA) 20 MG capsuleIndications: Ulnar neuropathy at elbow, left,Neuropathy, ulnar at elbow, right,Cervical radiculopathy,Irrit ability Take 1 capsule (20 mg total) by mouth daily. 90 capsule 3 5 Active levothyroxine (SYNTHROID) 150 MCG tabletIndications:P rimary hypothyroidism Take 1 tablet (150 mcg total) by mouth every morning. 90 tablet 3 5 Active terbinafine (LAMISIL) 250 MG tabletIndications:O nychomycosis Take 1 tablet (250 mg total) by mouth daily. 42 tablet 5 Active levothyroxine (SYNTHROID) 25 MCG tabletIndications:P rimary hypothyroidism TAKE 1/2 TABLET (12.5MCG) BY MOUTH EVERY MORNING WITH THE 150MCG TABLET 45 tablet 3 5 Active fluticasone propionate (FLONASE) 50 MCG/ACT nasal sprayIndications:En vironmental and seasonal allergies 2 sprays by Nasal route daily. 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 Resolved Problems Problem Noted Date Diagnosed Date Resolved Date Colon cancer screening 04/13/201907/14 Encounters Date Type Department Care Team Description 02/11/2025 Telephone [facility] [place] [address] [place] [address] Cliff Veliz MD Results 02/10/2025 8:56 AM CDT - 02/10/2025 11:59 PM CDT Hospital Encounter [place] [address] Cliff Veliz MD Discharge Disposition: Home or Self Care (Routine Discharge) 02/10/2025 Travel 01/31/2025 Telephone [facility] [address] [place] [address] Malissa Alvarez PA-C Results 01/17/2025 2:49 PM CDT - 01/17/2025 11:59 PM CDT Hospital Encounter [facility] Cardiopulmonary Services [address] [place] [address] Cliff Veliz MD Discharge Disposition: Home or Self Care (Routine Discharge) 01/17/2025 Scan [facility] SRVCS Scanned, [facility] Generic Orders (SCAN) 01/17/2025 Travel 01/11/2025 7:45 AM CDT Office Visit [facility] [place] [address] [place] [address] Cliff Veliz MD Abnormal Imaging Results (New pt - no previous pulm ) 01/11/2025 Travel 01/07/2025 Telephone [facility] Multispecialty Care - [address], [address] [place] [address] Cilff Veliz MD Appointment Request 01/06/2025 Patient Self-Triage [facility] FACILITY DEFAULT [facility] Provider 01/05/2025 3:44 PM ADMISSIONS MANAGER RN - 01/05/2025 11:59 PM ADMISSIONS MANAGER RN Hospital Encounter [facility] [address] [place] [address] Malissa Alvarez PA-C Discharge Disposition: Home or Self Care (Routine Discharge) 01/05/2025 Scan [facility] SRVCS Scanned, [facility] CT (SCAN) 12/27/[address] [address] Malissa Alvarez PA-C Results (a1c) 12/24/2024 [facility] Message Enc [address] [address] [facility] Provider Results 12/20/2024 4:25 PM ADMISSIONS MANAGER RN - 12/20/2024 11:59 PM ADMISSIONS MANAGER RN Hospital Encounter [facility] Laboratory [address] [place] [address] Malissa Alvarez PA-C Discharge Disposition: Home or Self Care (Routine Discharge) 12/20/2024 3:40 PM ADMISSIONS MANAGER RN Office Visit [facility] [address] [place] [id number] Malissa Alvarez PA-C Follow Up (yearly) 12/20/2024 Travel 12/04/2024 Scan [place] INFO SRVCS Scanned, [facility] from Last 3 Months Immunizations Immunization Administration Dates Next Due Dtap (Generic) 11/14/2011 Dtap/Hep B/Ipv 11/14/2011 Fluzone Quad 3 Yrs+ (5.0 mL Multi Dose Vial) 10/02/2020(Deferred: Patient Refused) Influenza Adult (Generic) 09/15/2010 Pneumococcal (Pneumovax 23) 09/15/2010 Pneumococcal (Prevnar 13) 12/24/2014 Tdap (Adacel) 07/21/2020 Tdap (Generic) 07/08/2021,01/21/2011 Family History Medical History Relation Comments Heart Brother stent Cancer Father lung w mets Heart Disease Maternal Grandfather Hypertension Maternal Grandfather Stroke Maternal Grandfather Hypertension Maternal Grandmother ND Maternal Grandmother Hypertension Mother nephrolithiasis Mother Cancer Paternal Grandfather lung w mets Diabetes Paternal Grandmother ND Paternal Uncle Prostate Cancer Paternal Uncle Asthma Sister 1 Heart Disease Sister 1 ND Lung Disease Sister 1 Heart Sister 2 Relation Status Comments Brother Father Maternal Grandfather Maternal Grandmother Mother Paternal Grandfather Paternal Grandmother Paternal Uncle Sister 1 Sister 2 Alive Social History Tobacco Use Types Packs/Day Years Used Date Smoking Tobacco: Former Cigarettes 1 20 1 11/15/1989 - 09/15/2010 Passive Smoke Exposure: Past Smokeless Tobacco: Never Tobacco Cessation:Counseling Given: Yes Comments:Former smoker quit 2009 - smoked for yrs 0.75 ppd Alcohol Use Standard Drinks/Week Comments Yes 0 (1 standard drink = 0.6 oz pur e alcohol) AUDIT-C Answer Date Recorded Frequency of Alcohol Consumption Never 09/15/2018 Average Number of Drinks Not on file 018 Frequency of Binge Drinking Not on file 09/03 PHQ-2 Answer Date Recorded Patient Health Questionnaire-2 Score 0 01/11/2025 Sex and Gender Information Value Date Recorded Sex Assigned at Male 09/15/2018 6:09 PM ADMISSIONS MANAGER RN Legal Sex Male 6:51 PM CDT Gender Identity Male 09/15/2018 6:09 PM ADMISSIONS MANAGER RN Sexual Orientation Straight 09/15/2018 6: 09 PM ADMISSIONS MANAGER RN Occupation Industry Job Start Date Job End Date [employer] Not on file Not on file Not on file Last Filed Vital Signs Vital Sign Reading Time Taken Comments Blood Pressure 124/67 01/11/2025 7:44 AM CDT Pulse 60 01/11/2025 7:44 AM CDT Temperature 36.4 C (97.5 F) 01/11/2025 7:44 AM CDT Respiratory Rate 18 01/11/2025 7:44 AM CDT Oxygen Saturation 98% 01/11/2025 7:44 AM CDT ra Inhaled Oxygen Concentration - - Weight 88 kg (194 lb) 01/11/2025 7:44 AM CDT Height 175.3 cm (5' 9 ) 01/11/2025 7:44 AM CDT Body Mass Index 28.65 01/11/2025 7:44 AM CDT Plan of Treatment Upcoming Encounters Date Type Department Care Team (Late st Contact Info) Description 07/12/2025 8:20 AM CDT Office Visit [facility] - [address] [address] Cliff Veliz MD 3rd [facility] [address] [place], [place] [phone] 09/08/2025 2:30 PM ADMISSIONS MANAGER RN Office Visit [facility] [address] Rex King MD [facility]. [facility] [address] [place], [place] [phone] Health Maintenance Due Date Last Done Comments Hepatitis B Vaccines (2 of 3 - 19+ 3-dose series) 12/12/2011 11/14/2011 Zoster Vaccines (1 of 2) 2018 Pneumococcal Vaccine: 50+ Years (3 of 3 - PCV20 or PCV21) 12/24/2019 12/24/2014, 09/15/2010 COVID-19 Vaccine (1 - season) 2024 Annual Physical 12/20/2025 12/20/2024, 12/05, 10/02/2020 Colorectal Cancer Screening Colonoscopy (10 Years) 04/19/2029 Postponed from 1968 (Awaiting Documentation) DTaP, Tdap and Td Vaccines (6 - Td or Tdap) 07/08/2031 07/08/2021, 07/21/2020, 11/14/2011, Additional history exists Hepatitis C Completed 10/12/2020 PHQ-2 (Physician Gordon) Completed 01/11/2025 Meningococcal B Vaccine Aged Out No l onger eligible based on patient's age to complete this topic Meningococcal Vaccine Aged Out No shira farzana eligible based on patient's age to complete this topic RSV Immunizations Under 20 Months Aged Out No longer eligible based on patient's age to complete this topic Medical Devices Implanted Type Area Director Of Restaurants Device Identifier Shelf Expiration Date Model / Serial / Lot Knee Components Knee Components Procedures Procedure Name Priority Date/Time Associated Diagnosis Comments PET EYE TO THIGH [id number] Routine 02/10/2025 1:31 PM CDT Abnormal finding on lung imaging Multiple lung nodules PROSTATIC SPECIFIC ANTIGEN Routine 01/29/2025 1:00 AM CDT [facility] WITH LIPID Routine 01/29/2025 1:00 AM CDT [facility] HEMOGLOBIN A1C Routine 01/29/2025 1:00 AM CDT PULMONARY FUNCTION TEST Routine 01/17/2025 3:00 PM CDT Pulmonary emphysema, unspecified emphysema type ([facility]HS/HCC) SPIROMETRY GENERIC (SCAN ORDER) 01/17/2025 CT LUNG SCREENING Routine 01/05/2025 3:5 7 PM ADMISSIONS MANAGER RN Chronic bronchitis, simple ([facility] HHS/HCC) Cigarette nicotine dependence in remission CT GENERIC 01/05/2025 PROSTATE SPECIFIC ANTIGEN,SCREENING Routine 12/20/2024 4:28 PM ADMISSIONS MANAGER RN Screening for malignant neoplasm of prostate COMPREHENSIVE METABOLIC PANEL Routine 12/20/2024 4:28 PM ADMISSIONS MANAGER RN Screening for diabetes mellitus HEMOGLOBIN, GLYCOSYLATED Routine 12/20/2024 4:28 PM ADMISSIONS MANAGER RN Screening for diabetes mellitus LIPID PANEL Routine 12/20/2024 4:28 PM ADMISSIONS MANAGER RN Mixed hyperlipidemia TSH W/REFLEX Routine 12/20/2024 4:28 PM ADMISSIONS MANAGER RN Primary hypothyroidism HEPATITIS C ANTIBODY Routine 10/12/2020 6:46 AM ADMISSIONS MANAGER RN Need for hepatitis C screening test from Last 3 Months or Most Recently Relevant to Health Maintenance Results * PET EYE TO THIGH [id number] (02/10/2025 1:31 PM CDT) Anatomical Region Laterality Modality Body Positron Emissio n Tomography (PET) 02/10/2025 11:5 0 AM CDT Impressions 02/10/2025 5:05 PM CDT IMPRESSION: 1. Interval resolution of the previously new right middle and right lower lobe opacities seen on the recent lung cancer screening CT. These were likely infectious/inflammatory. 2. No FDG uptake in a pattern suggestive of malignancy. 3. Spondylolysis at L5 with approximately 1.8 cm of anterior spondylolisthesis of L5 on S1. Ordered By: CLIFF VELIZ Interpreted By: Rosa Vieira MD, 02/10/2025 11:50 AM Narrative 02/10/2025 5:05 PM [address]T [address] [address] EXAMINATION: TUMOR FDG-PET/CT IMAGING DATE OF STUDY: 02/10/2025 SCANNER: [facility] RADIOPHARMACEUTICAL: 11.5 mCi F-18 Fluorodeoxyglucose (FDG) i.v. Injection site: Right antecubital fossa HISTORY: New suspicious subpleural nodule in the right middle lobe on recent lung cancer screening CT. The study is requested for diagnosis. Initial treatment strategy. TECHNIQUE: The patient's fasting blood glucose level, measured by glucometer before injection of FDG, was 108 mg/dL. MD-Gastroview was not given orally. After intravenous administration of FDG, noncontrast CT images were obtained for attenuation correction and for fusion with emission PET images to allow for anatomical localization of PET findings. Emission PET images were then obtained. The study was interpreted on the [employer] workstation. The mean liver SUV (reported for quality technician purposes) is 2.2. The total scanned area was skull base to the proximal thighs. Images of the body were obtained starting 55 minutes after injection of tracer. COMPARISON: No prior FDG PET/CT. Lung cancer screening CT 01/05/2025, 11/20/2023 FINDINGS: The new subpleural nodule in the posterior right middle lobe on recent lung cancer screening CT has resolved. Small areas of new nodularity in the medial right lower lobe also appear to have resolved. No hypermetabolic hilar or mediastinal lymphadenopathy. 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 There appears to be some fatty atrophy associated with the left subscapularis. Mild inflammatory FDG uptake associated with multilevel spondylosis. There is bilateral spondylolysis at L5 with approximately 1.8 cm of anterolisthesis of L5 on S1. Additional CT findings: Atherosclerotic calcification of the carotid arteries and thoracic aorta. Coronary artery calcification. Calcified left hilar lymph nodes. Granulomatous calcification in the spleen. Azygous fissure. Dependent atelectasis. Atherosclerotic calcification of the abdominal aorta. Biliary sludge. Pelvic phleboliths. Colonic diverticulosis. Prostatomegaly with dystrophic calcification. Scattered small sclerotic foci in the pelvis and left femoral head which likely represent bone islands. Procedure Note Rosa Vieira MD - 02/10/[address] [address] EXAMINATION: TUMOR FDG-PET/CT IMAGING DATE OF STUDY: 02/10/2025 SCANNER: [facility] RADIOPHARMACEUTICAL: 11.5 mCi F-18 Fluorodeoxyglucose (FDG) i.v.Injection site: Right antecubital fossa HISTORY: New suspicious subpleural nodule in the right middle lobe onrecent lung cancer screening CT. The study is requested for diagnosis. Initial treatment strategy. TECHNIQUE: The patient's fasting blood glucose level, measured byglucometer before injection of FDG, was 108 mg/dL. MD-Gastroview was notgiven orally. After intravenous administration of FDG, noncontrast CTimages were obtained for attenuation correction and for fusion withemission PET images to allow for anatomical localization of PET findings.Emission PET images were then obtained. The study was interpreted on [employer] workstation. The mean liver SUV (reported for quality controlpurposes) is 2.2. The total scanned area was skull base to the proximal thighs. Images ofthe body were obtained starting 55 minutes after injection of tracer. COMPARISON: No prior FDG PET/CT. Lung cancer screening CT 01/05/2025,11/20/2023 FINDINGS: The new subpleural nodule in the posterior right middle lobe on recentlung cancer screening CT has resolved. Small areas of new nodularity inthe medial right lower lobe also appear to have resolved. No hypermetabolic hilar or mediastinal lymphadenopathy. 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 Mild inflammatory FDG uptake associated with multilevel spondylosis. Thereis bilateral spondylolysis at L5 with approximately 1.8 cm ofanterolisthesis of L5 on S1. Additional CT findings: Atherosclerotic calcification of the carotidarteries and thoracic aorta. Coronary artery calcification. Calcified lefthilar lymph nodes. Granulomatous calcification in the spleen. Azygousfissure. Dependent atelectasis. Atherosclerotic calcification of theabdominal aorta. Biliary sludge. Pelvic phleboliths. Colonicdiverticulosis. Prostatomegaly with dystrophic calcification. Scatteredsmall sclerotic foci in the pelvis and left femoral head which likelyrepresent bone islands. IMPRESSION: 1. Interval resolution of the previously new right middle and right lowerlobe opacities seen on the recent lung cancer screening CT. These werelikely infectious/inflammatory. 2. No FDG uptake in a pattern suggestive of malignancy. 3. Spondylolysis at L5 with approximately 1.8 cm of anteriorspondylolisthesis of L5 on S1. Ordered By: CLIFF VELIZ Interpreted By: Rosa Vieira MD, 02/10/2025 11:50 AM us Cliff Veliz MD PET Final Resul t * (ABNORMAL) [facility] LIPID (01/29/2025 1:00 AM CDT) GLUCOSE 103(H) 70 - 99 MG/DL 01/29/2025 7:18 PM CDT [facility] BUN 15 7 - 18 MG/DL 01/29/2025 7:18 PM CDT [facility] SODIUM S/P/B 139 136 - 145 MMOL/L 01/29/2025 7:18 PM CDT [facility] POTASSIUM S/P/B 4.6 3.5 - 5.1 MMOL/L 01/29/2025 7:18 PM CDT [facility] CHLORIDE S/P/B 106 100 - 108 MMOL/L 01/29/2025 7:18 PM CDT [facility] CO2 25.5 21 - 32 MMOL/L 01/29/2025 7:18 PM CDT [facility] CREATININE S/P/B 1.06 0.7 - 1.3 MG/DL 01/29/2025 7:18 PM CDT [facility] CALCIUM S/P/B 9.1 8.5 - 10.1 MG/DL 01/29/2025 7:18 PM CDT [facility] ALBUMIN S/P/B 3.7 3.4 - 5.0 G/DL 01/29/2025 7:18 PM CDT [facility] TOTAL PROTEIN S/P/B 7.0 6.4 - 8.2 G/DL 01/29/2025 7:18 PM [facility] BILIRUBIN TOTAL S/P/B 0.6 0.2 - 1.2 MG/DL 01/29/2025 7:18 PM [facility] Comment: THIS ASSAY IS NOT RECOMMENDED FOR PATIENTS UNDERGOING TREATMENT WITH ELTROMBOPAG DUE TO THE POTENTIAL FOR FALSELY ELEVATED RESULTS. ALT 32 16 - 60 U/L 01/29/2025 7:18 PM [facility] AST 25 15 - 37 U/L 01/29/2025 7:18 PM [facility] ALKALINE PHOSPHATASE S/P/B 85 50 - 136 U/L 01/29/2025 7:18 PM [facility] A/G RATIO 1.1 1.0 - 2.0 RATIO 01/29/2025 7:18 [facility] GFR ESTIMATE 82(L) >90 ML/MIN/1. 73 M2 01/29/2025 7:18 PM [facility] Comment: NOTE: eGFR is not calculated for patients <18 years of age. This is an estimated GFR calculation using the new CKD EPI creatinine equation without race and so does not require a correction factor for race. This estimated GFR should not be used for calculating drug doses. CHOLESTEROL 135 <200 MG/DL 01/29/2025 7:18 PM [facility] TRIGLYCERIDES 71 <150 MG/DL 01/29/2025 7:18 PM [facility] HDL 50 >40.0 MG/DL 01/29/2025 7:18 PM [facility] LDL (CALCULATED) 71 <100 MG/DL 01/29/2025 7:18 PM [facility] NON HDL CHOLESTEROL 85 <130 MG/DL 01/29/2025 7:18 PM [facility] Comment: NOTE: WHEN THE TRIGLYCERIDES ARE >200 mg/dL, NON HDL C IS A SECONDARY TARGET OF THERAPY, WITH A GOAL 30 mg/dL HIGHER THAN THE IDENTIFIED LDL C GOAL. CHOL/HDL RATIO 2.7 0.0 - 4.5 01/29/2025 7:18 PM [facility] VLDL CALCULATION 14 5 - 55 MG/DL 01/29/2025 7:18 PM [facility] LIPID INTERPRETATION 01/29/2025 7:18 PM [facility] Comment: NIH CONCENSUS REPORT RECOMMENDATIONS: ADULT CHILD LOW RISK: CHOLESTEROL <200 <170 TRIGLYCERIDE <150 --- HDL >=60 --- LDL <100 <110 BORDERLINE: CHOLESTEROL 200-239 170-199 TRIGLYCERIDE 150-199 --- HDL 40-59 --- LDL 100-159 110-129 HIGH RISK: CHOLESTEROL >=240 >=200 TRIGLYCERIDE >=200 --- HDL <40 --- LDL >=160 >=130 TSH 12.515(H) 0.358 - 3.74 uIU/ML 01/29/2025 7:18 PM [facility] Comment: HIGH DOSES OF BIOTIN MAY INTERFERE WITH THIS TEST RESULT. CORRELATION TO CLINICAL HISTORY AND PRESENTATION RECOMMENDED. WBC 3.14(L) 4.50 - 11.00 x10'3/uL 01/29/2025 8:50 AM [facility] RBC 4.60(L) 4.70 - 6.10 x10'6/uL 01/29/2025 8:50 AM [facility] HGB 15.0 14.0 - 18.0 G/DL 01/29/2025 8:50 AM [facility] HCT 43.6 43.0 - 54.0 % 01/29/2025 8:50 AM [facility] MCV 94.8(H) 80.0 - 94.0 FL 01/29/2025 8:50 AM [facility] MCH 32.6(H) 27.0 - 31.0 PG 01/29/2025 8:50 AM CDT [facility] MCHC 34.4 32.0 - 36.0 G/DL 01/29/2025 8:50 AM CDT [facility] PLT 242 130 - 400 x10'3/uL 01/29/2025 8:50 AM CDT [facility] 01/29/2025 1:00 AM CDT us Jori Sanches MD LABORATORY Final Result Performing Organization Address City/[facility] Co de Phone Number [facility] [address] [place] [address], [place] [phone] * PROSTATIC SPECIFIC ANTIGEN (01/29/2025 1:00 AM CDT) PSA 1.64 <4.0 ng/ml 01/29/2025 11:12 AM CDT [facility] Comment: Test was performed using the Siemens method. Results obtained with other assay methods or kits cannot be used interchangeably with results obtained by the Siemens method. 01/29/2025 1:00 AM CDT us Jori Sanches MD LABORATORY Final Result Performing Organization Address City/[facility]/ZIP Co de Phone Number [facility] [address] [place] [address], [place] [phone] * HEMOGLOBIN A1C (01/29/2025 1:00 AM CDT) HGB A1C 5.1 <5.7 % 01/29/2025 7:22 PM CDT [facility] Comment: ADA GUIDELINES 2010 5.7 TO 6.4% INCREASED RISK OF DIABETES > OR = 6.5% CONSISTENT WITH DIABETES ESTIMATED AVG GLUCOSE 100 mg/dL 01/29/2025 7:22 PM CDT [facility] 01/29/2025 1:00 AM CDT Jori Sanches MD LABORATORY Final Result Performing Organization Address [facility] Co de Phone Number [facility] [address] [place] [address], [place] [phone] * Complete PFT (pre/post Varun, Lung Vol, Diff Capacity) ([id number], [id number], [id number], [id number]) (01/17/2025 3:00 PM CDT) Narrative [facility] - 01/17/2025 3:00 PM CDT Cliff Veliz MD 01/21/2025 3:45 PM [facility] PULMONARY FUNCTION TEST REPORT Ricki Tang INTERPRETATION Please see scanned PFT report for raw values, flow-volume loop, and therapist's comments. Spirometry: Prebronchodilator FVC 3.91 L, 89% predicted. FEV1 2.85 L, 84% predicted. FEV1/FVC 73%. Postbronchodilator FVC 3.81 L, 86% predicted. FEV1 2.87 L, 85% predicted. FEV1/FVC 75%. Less than significant response to bronchodilator. Lung volumes: TLC 97% predicted. RV 118% predicted. ERV 61% predicted. Diffusing capacity: Unadjusted DLCO 105% predicted. IMPRESSION: 1. Spirometry within normal limits. 2. Less than significant response to bronchodilator, this does not preclude use. Clinical correlation advised. 3. Total lung capacity within normal limits. 4. Unadjusted DLCO within normal limits. CLIFF VELIZ MD us Cliff Veliz MD PFT ORDERABLES Final Resul t Performing Organization Address City/[facility]/ZIP Co de Phone Number [facility] [address] [place] [address], [place] [phone] * SPIROMETRY GENERIC (SCAN ORDER) (01/17/2025) 01/17/2025 us [facility] Scanned SCANNING Final Resu lt * CT LUNG SCREENING (01/05/2025 3:57 PM ADMISSIONS MANAGER RN) Anatomical Region Laterality Modality Chest Computed Tomogra phy 01/07/2025 9:35 AM ADMISSIONS MANAGER RN Impressions 01/07/2025 9:43 AM ADMISSIONS MANAGER RN IMPRESSION: 1. New subpleural/perifissural nodules in the right middle/lower lobes. These may be infectious or inflammatory in etiology. This is technically considered LUNG-RADS category 4B: Suspicious-findings. Recommend follow-up CT chest in 3 months to ensure resolution. Alternatively, PET/CT can be considered. 2. LUNG-RADS category S: Negative, no new/unknown potentially significant incidental findings requiring urgent additional evaluation. 3. Other incidental findings as above. RECOMMENDATIONS: Follow-up LDCT Chest in 3 months (on or around 04/07/2025). Ordered By: MALISSA ALVAREZ Interpreted By: Gautam Ferguson MD, 01/07/2025 9:35 AM Narrative 01/07/2025 9:43 [place] [address] EXAM: LUNG SCREENING LOW-DOSE CT THORAX WITHOUT CONTRAST DATE: 01/05/2025 3:52 PM HISTORY: Asymptomatic patient meeting NCCN high-risk criteria for lung screening. COMPARISON: CT lung screening 11/20/2023. CT chest 01/26/2024. TECHNIQUE: Noncontrast, helical, low-dose CT (LDCT) chest per standard departmental protocol. A dose lowering technique was used for this procedure, which may include, but is not limited to, dose reduction technique, automated exposure control, iterative reconstruction, ALARA (As Low As Reasonably Achievable), or Image Gently techniques. FINDINGS: Lung Screening Specific (LUNG-RADS): Subpleural nonsolid nodule measuring 3 mm in the right upper lobe axial image 30. Stable. LungRADS 2. Subpleural 7 mm nodule in the right lower lobe axial image 92. New. LungRADS 2. . Perifissural 10 mm (8x12 mm) nodule in the right middle lobe axial image 82. New. LungRADS 4B. Potentially Significant Incidentals (LUNG-RADS category S): None. Pulmonary Incidentals: Incidentally noted azygos fissure. Mild bibasilar subsegmental atelectasis. Other Incidentals: Moderate thoracic spondylosis. Scattered calcified granulomatous disease with calcified bilateral hilar lymph nodes. Mild to moderate atherosclerotic plaque of the thoracic aorta. Moderate coronary artery calcifications. Calcified granulomas in the spleen. Small hiatal hernia. Procedure Note Gautam Ferguson MD - 01/07/2025 [facility] [address] [place] [address] EXAM: LUNG SCREENING LOW-DOSE CT THORAX WITHOUT CONTRAST DATE: 01/05/2025 3:52 PM HISTORY: Asymptomatic patient meeting NCCN high-risk criteria for lungscreening. COMPARISON: CT lung screening 11/20/2023. CT chest 01/26/2024. TECHNIQUE: Noncontrast, helical, low-dose CT (LDCT) chest per standarddepartmental protocol. A dose lowering technique was used for this procedure, which may include,but is not limited to, dose reduction technique, automated exposurecontrol, iterative reconstruction, ALARA (As Low As ReasonablyAchievable), or Image Gently techniques. FINDINGS: Lung Screening Specific (LUNG-RADS): Subpleural nonsolid nodule measuring 3 mm in the right upper lobe axialimage 30. Stable. LungRADS 2. Subpleural 7 mm nodule in the right lower lobe axial image 92. New.LungRADS 2. . Perifissural 10 mm (8x12 mm) nodule in the right middle lobe axial image82. New. LungRADS 4B. Potentially Significant Incidentals (LUNG-RADS category S): None. Pulmonary Incidentals: Incidentally noted azygos fissure. Mild bibasilarsubsegmental atelectasis. Other Incidentals: Moderate thoracic spondylosis. Scattered calcifiedgranulomatous disease with calcified bilateral hilar lymph nodes. Mild tomoderate atherosclerotic plaque of the thoracic aorta. Moderate coronaryartery calcifications. Calcified granulomas in the spleen. Small hiatalhernia. IMPRESSION: 1. New subpleural/perifissural nodules in the right middle/lower lobes.These may be infectious or inflammatory in etiology. This is technicallyconsidered LUNG-RADS category 4B: Suspicious-findings. Recommendfollow-up CT chest in 3 months to ensure resolution. Alternatively, PET/CTcan be considered. 2. LUNG-RADS category S: Negative, no new/unknown potentially significantincidental findings requiring urgent additional evaluation. 3. Other incidental findings as above. RECOMMENDATIONS: Follow-up LDCT Chest in 3 months (on or around04/07/2025). Ordered By: MALISSA ALVAREZ Interpreted By: Gautam Ferguson MD, 01/07/2025 9:35 AM Malissa Alvarez PA-C CT Final Resu lt * CT GENERIC (01/05/2025) Anatomical Region Laterality Modality Other 01/05/2025 [facility] Scanned SCANNING Final Resu lt * TSH W/REFLEX (12/20/2024 4:28 PM ADMISSIONS MANAGER RN) [facility] TSH 2.584 0.358 - 3.74 uIU/ML 12/20/2024 5:47 PM ADMISSIONS MANAGER RN [facility] Comment: HIGH DOSES OF BIOTIN MAY INTERFERE WITH THIS TEST RESULT. CORRELATION TO CLINICAL HISTORY AND PRESENTATION RECOMMENDED. FREE T4 NOT INDICATED 12/20/2024 4:28 PM ADMISSIONS MANAGER RN Malissa Alvarez PA-C LABORATORY Final Resu lt [facility] [address] [place] [address], [place] [phone] * (ABNORMAL) HEMOGLOBIN, GLYCOSYLATED (12/20/2024 4:28 PM ADMISSIONS MANAGER RN) Pathologist [facility] HGB A1C 5.8(H) <5.7 % 12/24/2024 1:01 PM ADMISSIONS MANAGER RN [facility] Comment: ADA GUIDELINES 2010 5.7 TO 6.4% INCREASED RISK OF DIABETES > OR = 6.5% CONSISTENT WITH DIABETES TESTING PERFORMED AT [facility] [address] [place] [address] ESTIMATED AVG GLUCOSE 120 mg/dL 12/24/2024 1:01 PM ADMISSIONS MANAGER RN [facility] 12/20/2024 4:28 PM ADMISSIONS MANAGER RN us Malissa Alvarez PA-C LABORATORY Final Resu lt Performing Organization Address [facility]/ZIP Co de Phone Number [facility] [address] [place] [address], [place] [phone] * PROSTATE SPECIFIC ANTIGEN,SCREENING (12/20/2024 4:28 PM ADMISSIONS MANAGER RN) [facility] PSA 2.09 <4.0 NG/ML 12/20/2024 5:47 PM ADMISSIONS MANAGER RN [facility] Comment: Test was performed using the Siemens method. Results obtained with other assay methods or kits cannot be used interchangeably with results obtained by the Siemens method. 12/20/2024 4:28 PM ADMISSIONS MANAGER RN us Malissa Alvarez PA-C LABORATORY Final Resu lt [facility] [address] [place] [address], [place] [phone] * (ABNORMAL) COMPREHENSIVE METABOLIC PANEL (12/20/2024 4:28 PM ADMISSIONS MANAGER RN) [facility] GLUCOSE 93 70 - 99 MG/DL 12/20/2024 5:47 PM ADMISSIONS MANAGER RN [facility] BUN 13 7 - 18 MG/DL 12/20/2024 5:47 PM ADMISSIONS MANAGER RN [facility] CREATININE S/P/B 1.30 0.7 - 1.3 MG/DL 12/20/2024 5:47 PM [facility] SODIUM S/P/B 140 136 - 145 MMOL/L 12/20/2024 5:47 PM [facility] POTASSIUM S/P/B 4.6 3.5 - 5.1 MMOL/L 12/20/2024 5:47 PM [facility] CHLORIDE S/P/B 103 100 - 108 MMOL/L 12/20/2024 5:47 PM [facility] CO2 28.4 21 - 32 MMOL/L 12/20/2024 5:47 PM [facility] CALCIUM S/P/B 9.5 8.5 - 10.1 MG/DL 12/20/2024 5:47 PM [facility] BILIRUBIN TOTAL S/P/B 0.3 0.2 - 1.2 MG/DL 12/20/2024 5:47 PM [facility] Comment: THIS ASSAY IS NOT RECOMMENDED FOR PATIENTS UNDERGOING TREATMENT WITH ELTROMBOPAG DUE TO THE POTENTIAL FOR FALSELY ELEVATED RESULTS. TOTAL PROTEIN S/P/B 7.6 6.4 - 8.2 G/DL 12/20/2024 5:47 PM [facility] ALBUMIN S/P/B 3.8 3.4 - 5.0 G/DL 12/20/2024 5:47 PM [facility] AST 18 15 - 37 U/L 12/20/2024 5:47 PM [facility] ALT 30 16 - 60 U/L 12/20/2024 5:47 PM [facility] ALKALINE PHOSPHATASE S/P/B 98 50 - 136 U/L 12/20/2024 5:47 PM [facility] ANION GAP 8.6 5 - 15 MMOL/L 12/20/2024 5:47 PM [facility] BUN CREATININE RATIO 10.0 6 - 26 12/20/2024 5:47 PM [facility] A/G RATIO 1.0 1.0 - 2.0 RATIO 12/20/2024 5:47 PM [facility] GFR ESTIMATE 64(L) >90 ML/MIN/1.7 3 M2 12/20/2024 5:47 PM [facility] Comment: NOTE: eGFR is not calculated for patients <18 years of age. This is an estimated GFR calculation using the new CKD EPI creatinine equation without race and so does not require a correction factor for race. This estimated GFR should not be used for calculating drug doses. 12/20/2024 4:28 PM ADMISSIONS MANAGER RN us Malissa Alvarez PA-C LABORATORY Final Resu lt [facility] [address] [place] [address], [place] [phone] * LIPID PANEL (12/20/2024 4:28 PM ADMISSIONS MANAGER RN) CHOLESTEROL 136 <200 MG/DL 12/20/2024 5:47 PM [facility] TRIGLYCERIDES 90 <150 MG/DL 12/20/2024 5:47 PM [facility] HDL 43 >40.0 MG/DL 12/20/2024 5:47 PM [facility] LDL (CALCULATED) 75 <100 MG/DL 12/20/19 25 5:47 PM [facility] NON HDL CHOLESTEROL 93 <130 MG/DL 12/20 5:47 PM [facility] Comment: NOTE: WHEN THE TRIGLYCERIDES ARE >200 mg/dL, NON HDL C IS A SECONDARY TARGET OF THERAPY, WITH A GOAL 30 mg/dL HIGHER THAN THE IDENTIFIED LDL C GOAL. CHOL/HDL RATIO 3.2 0.0 - 4.5 12/20/2024 5:47 PM ADMISSIONS MANAGER RN [facility] VLDL CALCULATION 18 5 - 55 MG/DL 12/20/2024 5:47 PM ADMISSIONS MANAGER RN [facility] LIPID INTERPRETATION 12/20/2024 5:47 PM ADMISSIONS MANAGER RN [facility] Comment: NIH CONCENSUS REPORT RECOMMENDATIONS: ADULT CHILD LOW RISK: CHOLESTEROL <200 <170 TRIGLYCERIDE <150 --- HDL >=60 --- LDL <100 <110 BORDERLINE: CHOLESTEROL 200-239 170-199 TRIGLYCERIDE 150-199 --- HDL 40-59 --- LDL 100-159 110-129 HIGH RISK: CHOLESTEROL >=240 >=200 TRIGLYCERIDE >=200 --- HDL <40 --- LDL >=160 >=130 12/20/2024 4:28 PM ADMISSIONS MANAGER RN Malissa Alvarez PA-C LABORATORY Final Resu lt [facility] [address] [place] [address], [place] [phone] * HEPATITIS C ANTIBODY (10/12/2020 6:46 AM ADMISSIONS MANAGER RN) HEPATITIS C AB NON-REACTI VE NON-REACTI VE 10/12/2020 2:47 PM ADMISSIONS MANAGER RN [facility] 10/12/2020 6:46 AM ADMISSIONS MANAGER RN Malissa Alvarez PA-C LABORATORY Final Resu lt [facility] [address] [place] [address], [place] [phone] from Last 3 Months or Most Recently Relevant to Health Maintenance Insurance [facility] Care Teams Manager Payment Relationship Specialty Start Date End Date Malissa Alvarez PA-C [address] [place] [address] PCP - General PHYSICIAN JEWELRY DRILL OPERATOR 09/14/18 Glen Multani MD [address] [place] [address] ORTHOPAEDICS 12/22/20 Dr. Leobardo Phillips ORTHOPAEDIC SURGERY 07/06/24
--- OUTSIDE RECORDS SUMMARY | 2025-02-22 08:15 | XMS_ITS | Referral Summary ---
Author Organization [facility] Address [address] [place] [id number] Care Team Providers Care Surgical Asst Name Role Phone Malissa Bean Primary Care Provider + Allergies Active Allergy Reactions Criticality Noted Date Comments Lisinopril Cough Low 09/09/2022 Penicillins Rash,Unknown Medium 08/04/2018 Pt states reaction: low blood pressure and body felt like on fire . Medications amLODIPine (NORVASC) 10 mg tablet 2 Active atorvastatin (LIPITOR) 40 mg tablet 2 Active levothyroxine (SYNTHROID) 175 mcg tablet Take 175 mcg by mouth child development instructor before breakfast 2 Active lisinopriL (PRINIVIL,ZESTR [place]) [...] hypertension 12/06/2013 Overview (02/26/2022): not on medicine Social History Tobacco Use Types Packs/Day Years Used Date Smoking Tobacco: Former Cigarettes Q uit: 2009 Passive Smoke Exposure: Never Smokeless Tobacco: Never Tobacco Cessation:Counseling Given: Not Answered Personal Safety Answer Date Recorded Getting School Help Needed Not on file 11/06 Sex and Gender Information Value Date Recorded Sex Assigned at Not on file 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
--- NOTE | 2025-02-22 12:00 | NEURO_ITS ---
Impression: # Complains of increasing numbness of hands. Non-diabetic. History of left cubital tunnel surgery. ? # Bilateral moderate Carpal Tunnel Syndrome. ? # Bilateral ulnar neuropathy across the elbows, left more than right. ? # Abnormal Needle/EMG exam. Nerve Conduction Studies Anti Sensory Summary Table ?Stim Site NR Peak (ms) P-T Amp (?V) Site1 Site2 Delta-P (ms) Dist (cm) Martin (m/s) Left Median Anti Sensory (2-3nd Digit) Wrist ? 5.2 40.5 Wrist 2-3nd Digit 5.2 14.0 27 Wrist ? 4.2 25.8 Wrist 2-3nd Digit 5.2 14.0 27 Right Median Anti Sensory (2-3nd Digit) Wrist ? 4.3 30.7 Wrist 2-3nd Digit 4.3 14.0 33 Wrist ? 4.7 34.1 Wrist 2-3nd Digit 4.3 14.0 33 Left Radial Anti Sensory (Base 1st Digit) Wrist ? 1.9 33.4 Wrist Base 1st Digit 1.9 0.0 Right Radial Anti Sensory (Base 1st Digit) Wrist ? 2.4 14.5 Wrist Base 1st Digit 2.4 0.0 Left Ulnar Anti Sensory (5th Digit) Wrist ? 2.3 36.4 Wrist 5th Digit 2.3 14.0 61 Right Ulnar Anti Sensory (5th Digit) Wrist ? 3.4 26.0 Wrist 5th Digit 3.4 14.0 41 Motor Summary Table ?Stim Site NR Onset (ms) O-P Amp (mV) Site1 Site2 Delta-0 (ms) Dist (cm) Martin (m/s) Left Median Motor (Abd Poll Brev) Wrist ? 4.6 2.3 Elbow Wrist 5.2 28.0 54 Elbow ? 9.8 2.2 Right Median Motor (Abd Poll Brev) Wrist ? 5.5 2.2 Elbow Wrist 4.8 27.0 56 Elbow ? 10.3 2.1 Left Ulnar Motor (Abd Dig Minimi) Wrist ? 3.7 1.4 A Elbow Wrist 7.8 30.0 38 A Elbow ? 11.5 0.4 B Elbow Wrist 3.1 19.0 61 B Elbow ? 6.8 0.6 Right Ulnar Motor (Abd Dig Minimi) Wrist ? 2.3 8.1 A Elbow Wrist 6.1 29.0 48 A Elbow ? 8.4 7.0 B Elbow Wrist 3.7 22.0 59 B Elbow ? 6.0 7.2 F Wave Studies ?NR F-Lat (ms) L-R F-Lat (ms) Left Median (Mrkrs) (Abd Poll Brev) ? 30.71 2.16 Right Median (Mrkrs) (Abd Poll Brev) ? 32.87 2.16 Left Ulnar (Mrkrs) (Abd Dig Min) ? 31.05 0.06 Right Ulnar (Mrkrs) (Abd Dig Min) ? 31.00 0.06 EMG ?Side Muscle Nerve Root Ins Act Fibs Amp Dur Recrt Comment Right 1stDorInt Ulnar C8-T1 Nml Nml Nml >12ms +1 Right Ext Indicis Radial (Post Int) C7-8 Nml Nml Nml Nml Nml Right Ext Digitorum Radial (Post Int) C7-8 Nml Nml Nml Nml Nml Right BrachioRad Radial C5-6 Nml Nml Nml Nml Nml Right PronatorTeres Median C6-7 Nml Nml Nml Nml Nml Right Abd Poll Brev Median C8-T1 Nml Nml Nml >12ms +1 Right ABD Dig Min Ulnar C8-T1 Nml Nml Nml >12ms +1 Right FlexPolLong Median (Ant Int) C7-8 Nml Nml Nml Nml Nml Right Abd Poll Long Radial (Post Int) C7-8 Nml Nml Nml Nml Nml Left 1stDorInt Ulnar C8-T1 Nml Nml Nml >12ms +1 Left Ext Indicis Radial (Post Int) C7-8 Nml Nml Nml Nml Nml Left Ext Digitorum Radial (Post Int) C7-8 Nml Nml Nml Nml Nml Left BrachioRad Radial C5-6 Nml Nml Nml Nml Nml Left PronatorTeres Median C6-7 Nml Nml Nml Nml Nml Left Abd Poll Brev Median C8-T1 Nml Nml Nml >12ms +1 Left ABD Dig Min Ulnar C8-T1 Nml Nml Nml >12ms +1 MTDD
== END 2025-02-22 08:06 | disposition home or self-care (01) ==
LOC: ANHNEURO 08:06
PROVIDERS: PCP Physician Assistant; Visit Provider Plastic Surgery
DX: G56.03 Carpal tunnel syndrome, bilateral upper limbs (principal); G56.23 Lesion of ulnar nerve, bilateral upper limbs
CPT/HCPCS: 95886; 95911

== ENCOUNTER 2025-05-03 12:57 | Outpatient (CLI) | payer OTHER, SELFPAY ==
--- NOTE | ~2025-05-03 | MR_ITS ---
EXAMINATION: MR wrist LT wo/w con DATE: 05/03/2025 13:59 INDICATION: Ulnar neuropathy with ganglion cyst. TECHNIQUE: Magnetic resonance imaging (MRI) of the left wrist was performed without intravenous contr ast. Sequences performed include axial PD-weighted FSE, axial PD-weighted FS FSE, axial T1-weighted F S FSE, coronal PD-weighted FS FSE, coronal T1-weighted SE, sagittal PD-weighted FS FSE, sagittal PD-w eighted FSE and post contrast axial, sagittal and coronal T2-weighted FS FSE. COMPARISON: None FINDINGS: Intrinsic ligaments: Partial tear of the central membranous component of the scapholunate ligament. The more physiologic s ignificant dorsal and volar components remain intact. The lunotriquetral ligament is normal. Triangular fibrocartilage complex (TFCC): There is a full-thickness tear at the central aspect of the fibrocartilaginous disc of the triangular fibrocartilage complex. There is partial tear of the ulnar styloid attachment of the triangular fibr ocartilage complex. The dorsal and volar radioulnar ligaments and the foveal attachment remain intact . The ulnar collateral ligament, ulnotriquetral ligament and meniscal homologue are normal. The exten sor carpi ulnaris tendon sheath is normal. Extensor wrist: Mild tendinopathy and short longitudinal split tear of the extensor carpi ulnaris tendon centered at the level of the ulnar styloid process. Remaining extensor tendons of the wrist are normal. No tenosy novitis. Flexor wrist: The flexor tendons of the wrist are normal. No abnormality in the carpal tunnel with normal median n erve. Guyon's canal: Ulnar variance with focal dilation of the veins along side the ulnar artery and nerve at Guyon's elliott l. No ganglion cyst, aneurysm or other abnormal mass lesions. Bones/other: Bone alignment is normal. There is severe osteoarthritis at the wrist joint was prompt at the radiolu malena articulation where there is full/near full-thickness cartilage loss and underlying subarticular edema-like and cystlike changes. Additional subarticular edema-like and cystlike changes are seen eamon ng portions of the articular surfaces at the scaphoid, triquetrum and distal ulna. Moderate osteoarth ritis at the distal radioulnar, first carpal metacarpal and first metacarpophalangeal joints and mild osteoarthritis at the remaining joints at the carpus. There is additional peripherally enhancing int raosseous cyst at the head and neck of the fifth metacarpal. No fracture or pathologic marrow replaci ng process. Small joint effusion at the distal radioulnar joint. No ganglion cyst or other abnormal f luid collections. IMPRESSION: 1. 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 2. 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 3. Partial tear of the central membranous component of the scapholunate ligament. 4. Mild tendinopathy and short longitudinal split tear of the extensor carpi ulnaris tendon at the le alvaro of the ulnar styloid process. Reviewed, dictated and finalized at location B. IMPRESSION: 1. 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 2. 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 3. Partial tear of the central membranous component of the scapholunate ligamen t. 4. Mild tendinopathy and short longitudinal split tear of the extensor carpi ul naris tendon at the level of the ulnar styloid process.
--- OUTSIDE RECORDS SUMMARY | 2025-05-03 13:07 | XMS_ITS | Referral Summary ---
Author Organization [facility] Address [address] [place] [phone] Care Team Providers Care Healthcare Management Consultant Name Role Phone Malissa Bean Primary Care Provider + Allergies Active Allergy Reactions Criticality Noted Date Comments Lisinopril Cough Low 09/09/2022 Penicillins Rash,Unknown Medium 08/04/2018 Pt states reaction: low blood pressure and body felt like on fire. 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
--- OUTSIDE RECORDS SUMMARY | 2025-05-03 13:07 | XMS_ITS | Encounter Summary ---
Author Organization [facility] Address [address] [place] [address] Care Team Providers Care Plumbing Foreman Name Role Phone Malissa Bean PA-C Primary Care Provider [phone] Glen Multani MD Unavailable [phone] Encounter Details Date Type Department Care Team (Late Contact Info) Description 03/12/2017 Abstract [facility] CONVERSION [address] [place] [address] , Generic Conversion, Social History Tobacco Use Types Packs/Day Years Used Date Smoking Tobacco: Never Assessed Sex and Gender Information Value Date Recorded Sex Assigned at Male 09/15/2018 6:09 PM APPLIANCE MECHANIC Legal Sex Male 6:51 PM CDT Gender Identity Male 09/15/2018 6:09 PM APPLIANCE MECHANIC Sexual Orientation Straight 09/15/2018 6: 09 PM APPLIANCE MECHANIC documented as of this encounter Plan of Treatment Upcoming Encounters Date Type Department Care Team ([facility] Contact Info) Description 07/12/2025 8:20 AM CDT Office Visit [facility] - [address] [phone] aGsper Estes MD [address] [place] [phone] 09/08/2025 2:30 PM APPLIANCE MECHANIC Office Visit [facility] [phone] Rex King MD [facility]. [address] [place] [address] documented as of this encounter Visit Diagnoses Not on filedocumented in this encounter Care Teams Plumbing Foreman Relationship Specialty Start Date End Date Malissa Bean PA-C [address] [place], [place] [address] PCP - General PHYSICIAN AIR MARSHAL 09/14/18 Glen Multani MD [address] [place] [address] ORTHOPAEDICS 12/22/20 Dr. Leobardo Phillips ORTHOPAEDIC SURGERY 07/06/24 documented as of this encounter
--- OUTSIDE RECORDS SUMMARY | 2025-05-03 13:07 | XMS_ITS | Clinical Summary ---
Author Organization [facility] Address [address] [place] [address] Care Team Providers Care Airport Skilled Maintenance Supervisor Name Role Phone Malissa Alvarez PA-C Primary Care Provider [phone] Glen Multani MD Unavailable [phone] Allergies Active Allergy Reactions Criticality Noted Date Comments Lisinopril Cough 09/09/2022 Medications Multiple Vitamin (ONE-A-DAY MENS) Tab Take by mouth daily. 013 Active aspirin EC (ECOTRIN) 81 MG tablet Take 1 tablet (81 mg total) by mouth daily. Active losartan (COZAAR) 100 MG tablet TAKE 1 TABLET BY MOUTH DAILY 90 tablet 1 025 Active amLODIPine (NORVASC) 10 MG tabletIndications :Essential hypertension Take 1 tablet (10 mg total) by mouth daily. 90 tablet 3 025 Active atorvastatin (LIPITOR) 40 MG tabletIndications :Mixed hyperlipidemia Take 1 tablet (40 mg total) by mouth daily. 90 tablet 3 025 Active DULoxetine (CYMBALTA) 20 MG capsuleIndication s:Ulnar neuropathy at elbow, left,Neuropathy, ulnar at elbow, right,Cervical radiculopathy,Irr itability Take 1 capsule (20 mg total) by mouth daily. 90 capsule 3 025 Active terbinafine (LAMISIL) 250 MG tabletIndications :Onychomycosis Take 1 tablet (250 mg total) by mouth daily. 42 tablet 025 Active fluticasone propionate (FLONASE) 50 MCG/ACT nasal sprayIndications: Environmental and seasonal allergies 2 sprays by Nasal route daily. 16 g 5 025 Active Additional Information Patient not taking.Reported on 04/14/2025 levothyroxine (SYNTHROID) 100 MCG tabletIndications :Primary hypothyroidism Take one tab po qam in addition to 88 mcg tab 30 tablet 1 025 Active levothyroxine (SYNTHROID) 88 MCG tabletIndications :Primary hypothyroidism Take one tab po qam in addition to 100 mcg tab 30 tablet 1 Active levothyroxine (SYNTHROID) 150 MCG tabletIndications :Primary hypothyroidism Take 1 tablet (150 mcg total) by mouth every morning. 90 tablet 3 025 2024 Discontinued(D ose adjustment) levothyroxine (SYNTHROID) 25 MCG tabletIndications :Primary hypothyroidism TAKE 1/2 TABLET (12.5MCG) BY MOUTH EVERY MORNING WITH THE 150MCG TABLET 45 tablet 3 025 2024 Discontinued levothyroxine (SYNTHROID) 25 MCG tabletIndications :Primary hypothyroidism TAKE 1 TABLET BY MOUTH EVERY MORNING WITH THE 150MCG TABLET 30 tablet 025 2024 Discontinued(R eorder) levothyroxine (SYNTHROID) 25 MCG tabletIndications :Primary hypothyroidism TAKE 0.5 TABLET BY MOUTH EVERY MORNING WITH THE 150MCG TABLET 15 tablet 025 2024 Discontinued(D ose adjustment) amoxicillin-clavu lanate (AUGMENTIN) 875-125 MG tabletIndications :Acute non-recurrent pansinusitis Take 1 tablet (875 mg total) by mouth 2 (two) times daily for 10 days. 20 tablet 025 2024 predniSONE (DELTASONE) 20 MG tabletIndications :Acute non-recurrent pansinusitis Take 1 tablet (20 mg total) by mouth daily for 5 days. 5 tablet 025 2024 Active Problems Problem Noted Date Diagnosed Date [...] Encounters Date Type Department Care Team Description 04/14/2025 4:00 PM CDT Office Visit [address] [phone] Marcel Dennison PA Congestion (Yellow mucus, Drainage, Runny nose /X2 mnths/); Headache 04/14/[address] [phone] Malissa Alvarez PA-C Allergies 04/14/2025 Travel 04/07/2025 Results Follow-Up [address] [phone] Malissa Alvarez PA-C TSH W/REFLEX, THYROXINE, FREE (FT4) 04/05/2025 4:10 PM CDT - 04/05/2025 11:59 PM CDT Hospital Encounter [facility] [address] [place] [address] Malissa Alvarez PA-C Discharge Disposition: Home or Self Care (Routine Discharge) 04/05/2025 Travel 04/05/[address] [phone] Malissa Alvarez PA-C Medication 03/21/[address] [phone] Malissa Alvarez PA-C Follow Up Call 03/19/2025 10:40 AM CDT Office Visit [address] [phone] Sandra Lutz, REBECCA Cough (Productive cough, x 2.5 weeks); Headache (X 1 day, sinus pressure x 2.5 weeks) 03/19/2025 Travel 03/10/2025 Telephone [facility] [address] [place] [address] Malissa Alvarez PA-C Results (Nerve conduction studies) 02/22/2025 Scan [facility] INFO SRVCS Scanned, [facility] (SCAN) 02/11/2025 Telephone [facility] [place] [address] [place] [address] Cliff Veliz MD Results 02/10/2025 8:56 AM CDT - 02/10/2025 11:59 PM CDT Hospital Encounter [facility] [place] [address] Cliff Veliz MD Discharge Disposition: Home or Self Care (Routine Discharge) 02/10/2025 Travel from Last 3 Months Immunizations Immunization Administration [...] Grandfather Stroke Maternal Grandfather Hypertension Maternal Grandmother ID Maternal Grandmother Hypertension Mother nephrolithiasis Mother Cancer Paternal Grandfather lung w mets Diabetes Paternal Grandmother ID Paternal Uncle Prostate Cancer Paternal Uncle Asthma Sister 1 Heart Disease Sister 1 ID Lung Disease Sister 1 Heart Sister 2 Relation Status Comments Brother Father Maternal Grandfather Maternal Grandmother Mother Paternal Grandfather Paternal Grandmother Paternal Uncle Sister 1 Sister 2 Alive Social History Tobacco Use Types Packs/Day Years Used Date Smoking Tobacco: Former Cigarettes 1 20 1 11/15/1989 - 09/15/2010 Passive Smoke Exposure: Past Smokeless Tobacco: Never Tobacco Cessation:Counseling Given: No Comments:Former smoker quit 2009 - smoked for [...] Sex Assigned at Male 09/15/2018 6:09 PM MILK DRIER Legal Sex Male 6:51 PM CDT Gender Identity Male 09/15/2018 6:09 PM MILK DRIER Sexual Orientation Straight 09/15/2018 6: 09 PM MILK DRIER 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 Not on file Not on file Last Filed Vital Signs Vital Sign Reading Time Taken Comments Blood Pressure 138/82 04/14/2025 4:15 PM CDT Pulse 65 04/14/2025 3:52 PM CDT Temperature 36.8 C (98.2 F) 04/14/2025 3:52 PM CDT Respiratory Rate 18 04/14/2025 3:52 PM CDT Oxygen Saturation 99% 04/14/2025 3:52 PM CDT Inhaled Oxygen Concentration - - Weight 89.4 kg (197 lb 2 oz) 04/14/2025 3:52 PM CDT Height 175.3 cm (5' 9) 03/19/2025 11:17 AM CDT Body Mass Index 29.11 03/19/2025 11:17 AM CDT Plan of Treatment Upcoming Encounters Date Type Department Care Team (Late st Contact Info) Description 07/12/2025 8:20 AM CDT Office Visit [facility] - [address] [phone] Cliff Veliz MD [address] [place] [id number] 09/08/2025 2:30 PM MILK DRIER Office Visit [facility] [address] [place] [address] Rex King MD Three [facility]. [facility] [address] [place] [address] Health Maintenance Due Date Last Done Comments Hepatitis B Vaccines (2 of 3 - 19+ 3-dose series) 12/12/2011 11/14/2011 Zoster Vaccines (1 of 2) 2018 Pneumococcal Vaccine: 50+ Years (3 of 3 - PCV20 or PCV21) 12/24/2019 12/24/2014, 09/15/2010 COVID-19 Vaccine (1 - 2023- season) 2024 Annual Physical 12/20/2025 12/20/2024, 12/05, 10/02/2020 Lung Cancer Screening 01/05/2026 01/05/2025 , 01/26/2024, 11/20/2023, Additional history exists Colorectal Cancer Screening Colonoscopy (10 Years) 04/19/2029 Postponed from 1968 (Awaiting Documentation) DTaP, Tdap and Td Vaccines (6 - Td or Tdap) 07/08/2031 07/08/2021, 07/21/2020, 11/14/2011, Additional history exists Hepatitis C Completed 10/12/2020 PHQ-2 (Physician [place]) Completed 01/11/2025 Meningococcal B Vaccine Aged Out No l onger eligible based on patient's age to complete this topic Meningococcal Vaccine Aged Out No shira farzana eligible based on patient's age to complete this topic RSV Immunizations Under 20 Months Aged Out No longer eligible based on patient's age to complete this topic Medical Devices Implanted Type Area Tipping Machine Operator Device Identifier Shelf Expiration Date Model / Serial / Lot Knee Components Knee Components Procedures Procedure Name Priority Date/Time Associated Diagnosis Comments THYROXINE, FREE (FT4) Routine 04/05/2025 4:23 PM CDT Primary hypothyroidism TSH W/REFLEX Routine 04/05/2025 4:23 PM CDT Primary hypothyroidism EMG GENERIC (SCAN ORDER) 02/22/2025 PET EYE TO THIGH [id number] Routine 02/10/2025 1:31 PM CDT Abnormal finding on lung imaging Multiple lung nodules CT LUNG SCREENING Routine 01/05/2025 3:5 7 PM MILK DRIER Chronic bronchitis, simple (CMS/HCC HHS/HCC) Cigarette nicotine dependence in remission HEPATITIS C ANTIBODY Routine 10/12/2020 6:46 AM MILK DRIER Need for hepatitis C screening test from Last 3 Months or Most Recently Relevant to Health Maintenance Results * (ABNORMAL) TSH W/REFLEX (04/05/2025 4:23 PM CDT) TSH 33.209(H) 0.358 - 3.74 uIU/ML 04/05/2025 5:18 PM CDT [facility] Comment: HIGH DOSES OF BIOTIN MAY INTERFERE WITH THIS TEST RESULT. CORRELATION TO CLINICAL HISTORY AND PRESENTATION RECOMMENDED. 04/05/2025 4:23 PM CDT Malissa Alvarez PA-C LABORATORY Final Resu lt Performing Organization Address [facility]/ZIP Co de Phone Number [facility] [address] [place] [address], [place] [phone] * THYROXINE, FREE (FT4) (04/05/2025 4:23 PM CDT) FREE T4 1.02 0.76 - 1.46 NG/DL 04/05/2025 5:18 PM CDT [facility] 04/05/2025 4:23 PM CDT Malissa Alvarez PA-C LABORATORY Final Resu lt [facility] [address] [place] [address], * EMG GENERIC (SCAN ORDER) (02/22/2025) 02/22/2025 [facility] Scanned SCANNING Final Resu lt * PET EYE TO THIGH [id number] (02/10/2025 1:31 PM CDT) Anatomical Region Laterality [...] 11:50 AM Narrative 02/10/2025 5:05 PM CDT [address] [address] EXAMINATION: TUMOR FDG-PET/CT IMAGING DATE OF STUDY: 02/10/2025 SCANNER: [facility] RADIOPHARMACEUTICAL: 11.5 mCi F-18 Fluorodeoxyglucose (FDG) i.v. Injection site: Right antecubital fossa HISTORY: New suspicious subpleural nodule in the right middle lobe on recent lung cancer screening CT. The study is requested for diagnosis. Initial treatment strategy. TECHNIQUE: The patient's fasting blood glucose level, measured by glucometer before injection of FDG, was 108 mg/dL. ELLIOTGastroview was not given orally. After intravenous administration of FDG, noncontrast CT images were obtained for attenuation correction and for fusion with emission PET images to allow for anatomical localization of PET findings. Emission PET images were then obtained. The study was interpreted on the [employer] workstation. The mean liver SUV (reported for customer quality specialist purposes) is 2.2. The total scanned area [...] Procedure Note Rosa Vieira MD - 02/10/[address] [address] EXAMINATION: TUMOR FDG-PET/CT IMAGING DATE OF STUDY: 02/10/2025 SCANNER: [facility] RADIOPHARMACEUTICAL: 11.5 mCi F-18 Fluorodeoxyglucose (FDG) i.v.Injection site: Right antecubital fossa HISTORY: New suspicious subpleural nodule in the right middle lobe onrecent lung cancer screening CT. The study is requested for diagnosis. Initial treatment strategy. TECHNIQUE: The patient's fasting blood glucose level, measured byglucometer before injection of FDG, was 108 mg/dL. Andriy was notgiven orally. After intravenous administration of FDG, noncontrast CTimages were obtained for attenuation correction and for fusion withemission PET images to allow for anatomical localization of PET findings.Emission PET images were then obtained. The study was interpreted on [employer] workstation. The mean liver SUV (reported for [...] Veliz MD PET Final Resul t * CT LUNG SCREENING (01/05/2025 3:57 PM MILK DRIER) Anatomical Region Laterality Modality Chest Computed Tomogra phy 01/07/2025 9:35 AM MILK DRIER Impressions 01/07/2025 9:43 AM MILK DRIER IMPRESSION: 1. New subpleural/perifissural nodules in the [...] 01/07/2025 9:35 AM Narrative 01/07/2025 9:43 [place] [address] EXAM: LUNG SCREENING LOW-DOSE CT THORAX WITHOUT [...] Procedure Note Gautam Ferguson MD - 01/07/2025 [facility] [address] [place] [address] EXAM: LUNG SCREENING LOW-DOSE CT THORAX WITHOUT [...] Alvarez PA-C CT Final Resu lt * HEPATITIS C ANTIBODY (10/12/2020 6:46 AM MILK DRIER) HEPATITIS C AB NON-REACTI VE NON-REACTI VE 10/12/2020 2:47 PM MILK DRIER [facility] 10/12/2020 6:46 AM MILK DRIER Malissa Alvarez PA-C LABORATORY Final Resu lt [facility] [address] [id number], from Last 3 Months or Most Recently Relevant to Health Maintenance Insurance [facility] Care Teams Airport Skilled Maintenance Supervisor Relationship Specialty Start Date End Date Malissa Alvarez PA-C [address] [place] [address] PCP - General PHYSICIAN TOP LIFTER 09/14/18 Glen Multani MD [address] [place] [address] ORTHOPAEDICS 12/22/20 Dr. Leobardo Phillips ORTHOPAEDIC SURGERY 07/06/24
--- OUTSIDE RECORDS SUMMARY | 2025-05-03 13:07 | XMS_ITS | Clinical Summary ---
Author Organization [facility] Address [address] [place] [phone] Care Team Providers Care Marine Firer Name Role Phone Malissa Bean Primary Care Provider + Allergies Active Allergy Reactions Criticality Noted Date Comments Lisinopril Cough Low 09/09/2022 Penicillins Rash,Unknown Medium 08/04/2018 Pt states reaction: low blood pressure and body felt like on fire. 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
--- OUTSIDE RECORDS SUMMARY | 2025-05-03 13:07 | XMS_ITS | Encounter Summary ---
Author Organization [facility] Address [facility] [place] [address] Care Team Providers Care Mixer Slagman Name Role Phone Malissa Bean PA-C Primary Care Provider [phone] Glen Multani MD Unavailable [phone] Encounter Details Date Type Department Care Team (Late Contact Info) Description 12/24/2024 [employer] Message [address] [phone] Mychart, [facility] Provider Results Social History Tobacco Use Types [...] Sex Assigned at Male 09/15/2018 6:09 PM REVERBERATORY SKIMMER Legal Sex Male 6:51 PM CDT Gender Identity Male 09/15/2018 6:09 PM REVERBERATORY SKIMMER Sexual Orientation Straight 09/15/2018 6: 09 PM REVERBERATORY SKIMMER 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 [address] [place] [address] documented as of this encounter Visit Diagnoses Not on filedocumented in this encounter Additional Health Concerns Assessment Noted Time PHQ-9 Depression Total Score: 0 07/20/20 3:36 PM CDT documented as of this encounter Care Teams Mixer Slagman Relationship Specialty Start Date End Date Malissa Bean PAUgoC [address] [facility] [address] [place], [place] [id number] PCP - General PHYSICIAN CERTIFIED RESPIRATORY THERAPIST 09/14/18 Glen Multani MD [address] [place] [address] ORTHOPAEDICS 12/22/20 Dr. Leobardo Phillips ORTHOPAEDIC SURGERY 07/06/24 documented as of this encounter
--- OUTSIDE RECORDS SUMMARY | 2025-05-03 13:07 | XMS_ITS | Clinical Summary ---
Author Organization [facility] Care Team Providers Care Clam Dredge Boat Captain Name Role Phone Unavailable Primary Care Provider Unavailabl e Social History Tobacco Use Types Packs/Day Years Used Date Smoking Tobacco: Never Assessed Sex and Gender Information Value Date Recorded Sex Assigned at Not on file Legal Sex Male 9:00 AM NURSERY MANAGER Gender Identity Not on file Sexual Orientation Not on file Plan of Treatment Health Maintenance Due Date Last Done Comments Hepatitis C Virus (HCV) Screening 1968 Hepatitis B Immunization (1 of 3 - 19+ 3-dose series) 1987 Cologuard 2013 Colonoscopy 2013 Colorectal Cancer Screening 2013 Immunochemical Fecal Occult Blood 2013 Pneumococcal Immunization (5 0+ years) (2 of 2 - PPSV23) 2018 12/24/2014 Zoster Immunization (1 of 2) 2018 SARS-COV-2 Immunization (1 - season) 2024 Influenza Immunization (Seas on Ended) 2025 Respiratory Syncytial Virus (RSV) Immunization (Adult) (1 - 1-dose 75+ series) 2043 Pneumococcal Immunization Combined Discontinued 2014 DTaP/Tdap/Td Immunization Discontinued 07/21/2020 TdaP Immunization Completed 07/21/2020 Human Papillomavirus (HPV) Immunization Aged Out No longer eligible b ased on patient's age to complete this topic Meningococcal Immunization (ACWY) Aged Out No longer eligible based on patient's age to complete this topic Rotavirus Immunization Aged Out No lo nger eligible based on patient's age to complete this topic
== END 2025-05-03 12:58 | disposition home or self-care (01) ==
PROVIDERS: Visit Provider Plastic Surgery
DX: G56.22 Lesion of ulnar nerve, left upper limb (principal); M19.032 Primary osteoarthritis, left wrist; S63.512A Sprain of carpal joint of left wrist, initial encounter; M67.834 Other specified disorders of tendon, left wrist; X58.XXXA Exposure to other specified factors, initial encounter
CPT/HCPCS: 73223; A9577

== ENCOUNTER 2025-06-16 07:18 | Day surgery (SDC) | payer OTHER, SELFPAY ==
[2025-05-31 10:04] VITALS: BMI 29.7
--- NOTE | 2025-06-16 06:55 | P.HP_ITS ---
History of Present Illness History of Present Illness Chief complaint: Left Carpal Tunnel Syndrome Narrative: Patient seen and examined in pre-operative holding area. No interval change in medical history or symptoms. Patient recalls previous discussion of benefits and alternatives to procedure. Continues to desire to proceed with left open carpal tunnel release and left guyon canal release. Reviewed procedure, post-op expectations and risks including but not limited to bleeding, infection, injury to tendon/nerve/vessel, decreased hand function, stiffness, RSD, no change or worsening of symptoms. I discussed the possible use of assistants and their participation in the case. Patient stated understanding and signed the consent form wishing to proceed. 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 Hypothyroidism BMI 30.0-30.9,adult Septic prepatellar bursitis of right knee History of hyperlipidemia History of hypertension Surgical History Surgical History Abscess of right leg Encapsulated subcutaneous/ periosteal abscess along with medial metaphyseal flare - excised March 20, 2023 Recurrence April 2023 Left rotator cuff tear Repair January 2021 Status post unicompartmental knee replacement left side 01/06/14, right side 04/30/18 Family History Family History Father Cancer Sibling Acute myocardial infarction Grandparent Heart disease Acute myocardial infarction Hypertension Social History Social History Smoking packs per day: 1 Smoking cigarettes per day: 20.0 Years smoked: 20 Smoking pack-years: 20.00 Smoking status: Former smoker Tobacco type: cigarettes Second hand tobacco smoke exposure: Yes Smoking end date: 11/03/09 Additional smoking assessment comments: Quit 2009 Alcohol intake: current Drinks per week: 1 Alcohol use details: 1 OR 2 PER MONTH Substance use: never Substance use type: does not use Last use: 2009 Lack of Transportation: No Lack of Food: Never True Current Housing: I Have Housing Concerned About Future Housing: No Difficulty Paying Gas/Electric Bills: No Difficulty Paying for Meds: No Currently Unemployed: No Education: High School Diploma/GED Difficulty w/ Childcare or Family Care: No Living arrangements: alone Gender identity (if verbalized by the patient): Male Spiritual care concerns: No Meds Home Medications and Allergies Home Medications ?Medication ?Instructions ?Recorded ?Confirmed ?Type amlodipine 10 mg tablet 10 mg PO DAILY 06/22/20 06/16/25 History levothyroxine 150 mcg tablet 150 mcg PO DAILY 06/22/20 06/16/25 History losartan 100 mg tablet 100 mg PO DAILY 02/26/23 06/16/25 History levothyroxine 25 mcg tablet 12.5 mcg PO DAILY 03/17/23 06/16/25 History aspirin 81 mg tablet 81 mg PO DAILY 04/19/23 06/16/25 History atorvastatin 40 mg tablet 40 mg PO DAILY 06/11/24 06/16/25 History duloxetine 20 mg capsule,delayed 20 mg PO DAILY 06/11/24 06/16/25 History release multivitamin with minerals-folic 1 tablet PO DAILY 06/11/24 06/16/25 History acid 0.4 mg tablet tramadol 50 mg tablet 50 mg PO Q6H PRN pain #12 tabs 06/16/25 Rx Allergies Allergy/AdvReac Type Severity Reaction Status Date / Time No Known Allergies Allergy Verified 06/16/25 07:30 Exam Narrative: unchanged Assessment and Plan Assessment and plan (1) Entrapment of left ulnar nerve at elbow: Code(s): G56.22 - Lesion of ulnar nerve, left upper limb Status: Acute Assessment and Plan: cont as above (2) Guyon syndrome: Qualifiers: Laterality: left Qualified Code(s): G56.22 - Lesion of ulnar nerve, left upper limb Code(s): G56.20 - Lesion of ulnar nerve, unspecified upper limb Status: Acute (3) Bilateral carpal tunnel syndrome: Code(s): G56.03 - Carpal tunnel syndrome, bilateral upper limbs Status: Acute
--- NOTE | 2025-06-16 06:56 | W.PM.PROC2 ---
Procedure Note - Detailed Date of Procedure 06/16/25 Pre-op Diagnosis Left Carpal Tunnel Syndrome and ulnar nerve compression at wrist Post-op Diagnosis Same Procedure Performed left open carpal tunnel and guyon canal release Surgeon Leobardo Phillips MD [employer] Ju Ortega PA-C Anesthesia MAC Description of Procedure INFORMED CONSENT: The patient was seen and examined and marked in the pre-op area.? The patient signed the consent form. PROCEDURE IN DETAIL:The patient taken back to OR on the stretcher in supine position. Time out performed with anesthesia, surgeon and staff agreeing on patient's name site and surgery to be performed SCDs were placed on the lower extremities and inflated. A tourniquet was placed on {left} upper extremity and antibiotics given IV After anesthesia administered sedation I injected {8}cc 1%lido with epi and 0.5% marcaine plain at the operative site The?{left upper extremity}?was prepped and draped in sterile fashion the??{left upper extremity} was? exsanguinated with Esmarch bandage and tourniquet inflated to 250mmHg I proceeded with making a longitudinal incision over the left palm in line with the ring finger going proximally and obliquely across the volar wrist flexion crease to create an ulnarly based flap through skin and dermis with 15 blade scalpel. Littler scissors were used to spread through subcutaneous tissue down to palmar fascia elevating this flap. I spread through the antebrachial fascia proximally in the forearm and identified the median nerve. I proceeded with anterograde dissection above and below the transverse carpal ligament and released the ligament sharply with a combination of scissors and 15 blade scalpel. The median nerve was protected throughout the procedure. The median nerve was examined and there was a small amount of synovitis in carpal tunnel but no clear signs of compression on the nerve with visible vaso nervorum. After carpal tunnel release I used Littler scissors to dissect proximally in the forearm and identified the ulnar nerve as it entered Guyon's canal. I proceeded with anterograde dissection releasing Guyon's canal until I was able to visualize the branches of the ulnar nerve exiting the canal. No ganglion cyst or masses were identified in Guyon's canal. It was noted that the nerve did appear slightly compressed by bands of fibrous tissue on the sidewall of the canal but this site of compression was improved after release and there were visible vaso nervorum. I irrigated with normal saline. I closed with 3-0 Vicryl for dermis and 4-0 chromic suture. A dressing of xeroform, 4x4, sharon, and a volar splint was applied for patient safety, security, and comfort and secured with an magalie bandage after the tourniquet was let down noting the hand was warm and well perfused. The patient was then awaken from anesthesia and transferred to the recovery room in stable condition.? Complications - none EBL- 0cc Disposition - home in stable condition Ju Ortega PA-C was essential for positioning, retraction, closure and dressing placement G Billing Surgery - Charge Forward: Surgery Billing ([id number] same for ju brewster )
--- OUTSIDE RECORDS SUMMARY | 2025-06-16 07:22 | XMS_ITS | Clinical Summary ---
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
--- OUTSIDE RECORDS SUMMARY | 2025-06-16 07:22 | XMS_ITS | Clinical Summary ---
Author Organization [facility] Address [address] [place] [id number] Care Team Providers Care Siderographist Name Role Phone Malissa Bean Primary Care Provider + Allergies Active Allergy Reactions Criticality Noted Date Comments Lisinopril Cough Low 09/09/2022 Penicillins Rash,Unknown Medium 08/04/2018 Pt states reaction: low blood pressure and body felt like on fire. 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 Gender Identity Not on file Sexual [...] Vaccine (1 of 2) 2018 Influenza Vaccine (#1) 2025 09/15/2010 DTaP/Tdap/Td Vaccine (6 - Td or Tdap) 07/08/2031 07/08/2021, 07/21/2020, 11/14/2011, Additional history exists Hepatitis B Screening Completed 11/14/2011 Pneumococcal vaccine <65 Aged Out 12/24/2014, 09/03 No longer eligible based on patient's age to complete this topic Insurance [facility] [employer] [facility] H[facility]/PPO Address: [address] [place] [address] [facility] [employer] [facility] [employer]/PPO Address: [address] [place], [place] [id number] Care Teams Siderographist Relationship Specialty Start Date End Date Malissa Bean PA [id number] [place] [address] PCP - General Physician Digester Cook 04/09/22
[2025-06-16 07:33] VITALS: BP 135/80; PULSE 55; RESP 18; TEMP 36.4; O2SAT 99
[2025-06-16] MEDS: ACETAMINOPHEN 500 MG TABLET 1000 MG PO (07:35)
[2025-06-16] MEDS: LACTATED RINGERS 1,000 ML 30 ML IV CONT (07:42)
--- NOTE | 2025-06-16 08:08 | P.PNAN_ITS ---
Anes - Initial Pre Proc Eval Procedure: Operation Date: 06/16/25 08:45 Proposed Procedures p Left Open Carpal Tunnel Release - Leobardo Phillips MD s Left Guyon Canal Release - Leobardo Phillips MD Date/Time: 06/16/25 08:08 Surgeon: Leobardo Phillips MD Pre Op Diagnosis: Left Carpal Tunnel Syndrome Patient Data Age: 54 Gender: M Height: 1.7 m Weight: 85.5 kg Last Vital Signs Temp 97.6 F 06/16/25 07:33 Pulse 55 L 06/16/25 07:33 Resp 18 06/16/25 07:33 BP 135/80 06/16/25 07:33 Pulse Ox 99 06/16/25 07:33 O2 Del Method Room Air 06/16/25 07:33 Allergies Allergy/AdvReac Type Severity Reaction Status Date / Time No Known Allergies Allergy Verified 06/16/25 07:30 Home Medications ?Medication ?Instructions ?Recorded ?Confirmed ?Type amlodipine 10 mg tablet 10 mg PO DAILY 06/22/20 06/16/25 History levothyroxine 150 mcg tablet 150 mcg PO DAILY 06/22/20 06/16/25 History losartan 100 mg tablet 100 mg PO DAILY 02/26/23 06/16/25 History levothyroxine 25 mcg tablet 12.5 mcg PO DAILY 03/17/23 06/16/25 History aspirin 81 mg tablet 81 mg PO DAILY 04/19/23 06/16/25 History atorvastatin 40 mg tablet 40 mg PO DAILY 06/11/24 06/16/25 History duloxetine 20 mg capsule,delayed 20 mg PO DAILY 06/11/24 06/16/25 History release multivitamin with minerals-folic 1 tablet PO DAILY 06/11/24 06/16/25 History acid 0.4 mg tablet tramadol 50 mg tablet 50 mg PO Q6H PRN pain #12 tabs 06/16/25 Rx Patient hx anesthesia problems: none Family hx anesthesia problems: none Results Review: All pre-operative results and documents have been reviewed as part of the pre- operative evaluation. 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 Hypothyroidism BMI 30.0-30.9,adult Septic prepatellar bursitis of right knee History of hyperlipidemia History of hypertension Surgical History Surgical History Abscess of right leg Encapsulated subcutaneous/ periosteal abscess along with medial metaphyseal flare - excised March 20, 2023 Recurrence April 2023 Left rotator cuff tear Repair January 2021 Status post unicompartmental knee replacement left side 01/06/14, right side 04/30/18 Family History Family History Father Cancer Sibling Acute myocardial infarction Grandparent Heart disease Acute myocardial infarction Hypertension Social History Social History Smoking packs per day: 1 Smoking cigarettes per day: 20.0 Years smoked: 20 Smoking pack-years: 20.00 Smoking status: Former smoker Tobacco type: cigarettes Second hand tobacco smoke exposure: Yes Smoking end date: 11/03/09 Additional smoking assessment comments: Quit 2009 Alcohol intake: current Drinks per week: 1 Alcohol use details: 1 OR 2 PER MONTH Substance use: never Substance use type: does not use Last use: 2009 Lack of Transportation: No Lack of Food: Never True Current Housing: I Have Housing Concerned About Future Housing: No Difficulty Paying Gas/Electric Bills: No Difficulty Paying for Meds: No Currently Unemployed: No Education: High School Diploma/GED Difficulty w/ Childcare or Family Care: No Living arrangements: alone Gender identity (if verbalized by the patient): Male Spiritual care concerns: No Anes - Eval Final PreProcedure Day of Procedure 06/16/25 08:08 Heart: regular rate and rhythm Lungs: clear to auscultation Airway: Mallampati scale class II Neurological: alert and oriented ASA classification: II Anesthetic plan: proceed Anesthesia type and monitoring: monitored anesthesia care Results Review: All pre-operative results and documents have been reviewed as part of the pre- operative evaluation. Informed Consent: The patient's anesthetic plan and its attendant risks and benefits were discussed with the patient/family/POA. Questions were solicited and answers provided to the satisfaction of the patient/family/POA.
[2025-06-16] MEDS: ceFAZolin SODIUM 2 GM/20 ML SW SYRINGE IV PUSH (08:45)
--- NOTE | 2025-06-16 08:55 | WPDANESPN ---
Anes - Prog Note Post-Op Date/Time: 06/16/25 08:55 Vital Signs: Last Vital Signs Temp 97.6 F 06/16/25 07:33 Pulse 55 L 06/16/25 07:33 Resp 18 06/16/25 07:33 BP 135/80 06/16/25 07:33 Pulse Ox 99 06/16/25 07:33 O2 Del Method Room Air 06/16/25 07:33 Pain Score (VAS): no Patient Feedback: Patient satisfied with anesthetic care.
[2025-06-16] MEDS: LIDO 1%/EPINEPHRINE 1:100,000 20 ML VIAL 3 ML INFILTRATE (08:56)
--- NOTE | 2025-06-16 09:11 | WPDANESPN ---
Anes - Prog Note Post-Op Date/Time: 06/16/25 09:11 Vital Signs: Last Vital Signs Temp 97.6 F 06/16/25 07:33 Pulse 55 L 06/16/25 07:33 Resp 18 06/16/25 07:33 BP 135/80 06/16/25 07:33 Pulse Ox 99 06/16/25 07:33 O2 Del Method Room Air 06/16/25 07:33 Pain Score (VAS): no Patient Feedback: Patient satisfied with anesthetic care.
[2025-06-16 09:23] VITALS: BP 107/71; PULSE 59; RESP 14; O2SAT 99
[2025-06-16 09:43] VITALS: BP 119/73; PULSE 50; RESP 16; O2SAT 98
== END 2025-06-16 09:53 | disposition home or self-care (01) ==
PROVIDERS: PCP Physician Assistant; Visit Provider Plastic Surgery
PROC: (CPT 64721; principal; 2025-06-16 08:45)
PROC: (CPT 64721; 2025-06-16 08:45)
DX: G56.02 Carpal tunnel syndrome, left upper limb (principal); G56.22 Lesion of ulnar nerve, left upper limb
CPT/HCPCS: 64721; 64719

== ENCOUNTER 2025-07-29 12:59 | Outpatient (CLI) | payer OTHER, SELFPAY ==
--- NOTE | ~2025-07-29 | CT_ITS ---
EXAMINATION: CT knee LT wo con DATE: 07/29/2025 14:16 INDICATION: Left knee pain TECHNIQUE: Computed tomography (CT) of the left knee was performed without intravenous contrast. The dose-length product was 466.06 mGy-cm. COMPARISON: Left knee series dated 06/22/2019 FINDINGS: There is a left medial unicompartmental knee arthroplasty which appears to be well seated. No evidence for loosening. There is osteoarthritis of the lateral and patellofemoral compartments. There is a chronic transverse fracture of the patella with corticated margins. There is moderate joint effusion. IMPRESSION: 1. Chronic transverse nonunited patellar fracture. 2: Polyarticular osteoarthritis. 3: Moderate joint effusion. Reviewed, dictated and finalized at location O.
--- OUTSIDE RECORDS SUMMARY | 2025-07-29 13:08 | XMS_ITS | Clinical Summary ---
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
--- OUTSIDE RECORDS SUMMARY | 2025-07-29 13:08 | XMS_ITS | Clinical Summary ---
Author Organization [facility] Address [address] [place] [id number] Care Team Providers Care River Driver Name Role Phone Malissa Bean Primary Care Provider + Allergies Active Allergy Reactions Criticality Noted Date Comments Lisinopril Cough Low 09/09/2022 Penicillins Rash,Unknown Medium 08/04/2018 Pt states reaction: low blood pressure and body felt like on fire. 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
[2025-07-29 13:45] LABS: Hematocrit 43.8 % (42.0-52.0); Hemoglobin 15.0 g/dL (14.0-18.0); Mean Corpuscular HGB Conc 34.2 g/dl (32-36); Mean Corpuscular Hemoglobin 32.1 pg (26-34); Mean Corpuscular Volume 93.6 fl (80-100); Platelet Count Result 279 k/mm3 (150-375); Red Blood Count 4.68 M/mm3 (4.6-6.20); White Blood Count 5.4 K/mm3 (4.5-10.0)
[2025-07-29 14:09] LABS: Alanine Aminotransferase 22 U/L (6-50); Albumin Level 4.6 g/dL (3.5-5.1); Alkaline Phosphatase 100 U/L (38-126); Anion Gap 9 mmol/L (4-12); Aspartate Amino Transferase 31 U/L (17-59); Bilirubin,Total 0.7 mg/dL (0.2-1.3); Blood Urea Nitrogen 13 mg/dL (9-20); CRP < 0.5 mg/dL (<1.0); Calcium 9.3 mg/dL (8.4-10.2); Carbon Dioxide 28 mmol/L (22-30); Chloride 103 mmol/L (98-107); Estimated Glomerular Filt Rate > 60; Glucose 104 mg/dL (65-110); Potassium 4.5 mmol/L (3.4-5.0); Sodium 140 mmol/L (137-145); Total Protein 8.4 g/dL (6.3-8.2)
== END 2025-07-29 13:00 | disposition home or self-care (01) ==
PROVIDERS: Visit Provider Physician Assistant Surgical
DX: S82.035 Nondisplaced transverse fracture of left patella (principal); M15.9 Polyosteoarthritis, unspecified; M25.462 Effusion, left knee
CPT/HCPCS: 36415; 73700; 80053; 85027; 85652; 86140

== ENCOUNTER 2025-08-10 10:13 | Outpatient (CLI) | payer OTHER, SELFPAY ==
--- NOTE | ~2025-08-10 | US_ITS ---
EXAMINATION: US knee asp inj w image LT DATE: 08/10/2025 11:52 INDICATION: Left knee pain and effusion TECHNIQUE: The procedure and its risks and benefits were discussed with the patient. Potential risks discussed included bleeding and infection. The skin was prepped and draped in sterile fashion. 1% lidocaine was used for local anesthesia. Under ultrasound guidance, a 22-gauge spinal needle was advanced into the fluid at the suprapatellar pouch. Fluid was aspirated and sent to lab for studies ordered by the referring physician. The needle was removed, and bandage was applied. There were no immediate complications. FINDINGS: Ultrasound images demonstrate a small left knee joint effusion at the suprapatellar pouch with needle advanced into the fluid. IMPRESSION: 1. Successful ultrasound-guided left knee arthrocentesis yielding 30 mL of relatively viscous dark zaheer-colored fluid. Reviewed, dictated and finalized at location A. IMPRESSION: 1. Successful ultrasound-guided left knee arthrocentesis yielding 30 mL of rel atively viscous dark zaheer-colored fluid.
[2025-08-10 13:29] LABS: Color Synovial Fluid Other (Colorless); Source Synovial Fluid Lt Hip Syn Fluid
[2025-08-10 13:31] LABS: Lymphocytes Synovial Fluid 54 %; Monocytes Synovial Fluid 4 %; Neutrophils Synovial Fluid 0 % (0-25)
[2025-08-10 13:32] LABS: Macrophages Synovial Fluid 23 %; Other Cells Synovial Fluid 19 %
[2025-08-10 13:39] LABS: Nucleated Cell Synovial Fluid 2302 /uL (0-200); RBC Synovial Fluid 8000 /uL (0-0)
== END 2025-08-10 10:14 | disposition home or self-care (01) ==
PROVIDERS: Visit Provider Physician Assistant Surgical
DX: M25.562 Pain in left knee (principal); M25.462 Effusion, left knee
CPT/HCPCS: 20611; 87070; 87075; 89051